=== PATIENT | male | born 1935 | race Caucasian/White ===

== ENCOUNTER 2017-05-15 15:23 | Inpatient (IN) | payer MEDICARE, BC ==
--- NOTE | 2017-05-15 16:02 | ER Document Report ---
ED Medical Screen (RME) - General Chief Complaint: Shortness Of Breath Stated Complaint: DIFFICULTY BREATHING Time Seen by Provider: 05/15/17 15:54 Notes: RME DISCLOSURE I have seen this patient as part of a Rapid Medical Evaluation and, if applicable, placed any initially appropriate orders. The patient will be seen and fully evaluated, including a full history and physical exam, by a provider ( in Main ED or Fast Track) when a room becomes available. 82-year-old male here with complaints of shortness of breath and left-sided nonradiating chest pain shortness of breath has been ongoing for the past 2 weeks but the chest pain has been ongoing for the past few days. Chest pain is worse with exertion and improved with rest. TRAVEL OUTSIDE OF THE [place] IN LAST 30 DAYS: No - Related Data Allergies/Adverse Reactions: Sulfa (Sulfonamide Antibiotics) Allergy (Verified 05/15/17 15:27) Past Medical History - Social History Chew tobacco use (# tins/day): No Frequency of alcohol use: None Drug Abuse: None - Past Medical History Cardiac Medical History: Reports: Hx Hypertension Endocrine Medical History: Reports: Hx Diabetes Mellitus Type 2 Renal/ Medical History: Denies: Hx Peritoneal Dialysis Past Surgical History: Reports: Hx Cardiac Catheterization - Immunizations Hx Diphtheria, Pertussis, Tetanus Vaccination: Yes Physical Exam - Vital signs Vitals: Temp Pulse Resp BP Pulse Ox 98.3 F 66 16 132/55 H 99 05/15/17 15:38 05/15/17 15:38 05/15/17 15:38 05/15/17 15:38 05/15/17 15:38 Course - Vital Signs Vital signs: Temp Pulse Resp BP Pulse Ox 98.3 F 66 16 132/55 H 99 05/15/17 15:38 05/15/17 15:38 05/15/17 15:38 05/15/17 15:38 05/15/17 15:38
[2017-05-15] MEDS ORDERED: ASPIRIN 81 MG TABLET, CHEWABLE PO ONE (16:06)
[2017-05-15] MEDS ORDERED: NITROGLYCERIN 0.4 MG/TAB 25 TAB/BOTTLE SL PRN (16:07)
[2017-05-15 16:20] LABS: ABSOLUTE BASOPHILS # (AUTO) 0.1 10^3/uL (0.0-0.2); ABSOLUTE EOSINOPHILS # (AUTO) 0.1 10^3/uL (0.0-0.6); ABSOLUTE LYMPHOCYTES (AUTO) 0.8 10^3/uL (0.5-4.7); ABSOLUTE MONOCYTES (AUTO) 0.7 10^3/uL (0.1-1.4); ABSOLUTE NEUT (AUTO) 5.5 10^3/uL (1.7-8.2); BASOPHILS % (AUTO) 0.8 % (0-2); EOSINOPHILS % (AUTO) 1.4 % (0-6); HEMATOCRIT 37.1 % (37.9-51.0); HEMOGLOBIN 12.5 g/dL (13.5-17.0); LYMPHOCYTES % (AUTO) 11.3 % (13-45); MEAN CORPUSCULAR HEMOGLOBIN 31.5 pg (27.0-33.4); MEAN CORPUSCULAR HGB CONC 33.6 g/dL (32.0-36.0); MEAN CORPUSCULAR VOLUME 94 fl (80-97); MONOCYTES % (AUTO) 9.6 % (3-13); PLATELET COUNT 112 10^3/uL (150-450); RED BLOOD COUNT 3.95 10^6/uL (4.35-5.55); RED CELL DISTRIBUTION WIDTH 14.2 % (11.5-14.0); SEGMENTED NEUTROPHILS % (AUTO) 76.9 % (42-78); TOTAL CELLS COUNTED % (AUTO) 100 %; WHITE BLOOD COUNT 7.1 10^3/uL (4.0-10.5)
[2017-05-15 16:43] LABS: ANION GAP 9 (5-19); BLOOD UREA NITROGEN 20 mg/dL (7-20); CALCIUM 9.8 mg/dL (8.4-10.2); CARBON DIOXIDE 29 mmol/L (22-30); CHLORIDE 102 mmol/L (98-107); GLUCOSE 194 mg/dL (75-110); POTASSIUM 4.7 mmol/L (3.6-5.0); SODIUM 139.9 mmol/L (137-145)
[2017-05-15] MEDS ORDERED: NITROGLYCERIN 2% OINTMENT 1 GM PACKET TP ONE (16:54)
[2017-05-15 16:55] LABS: TROPONIN I 0.021 ng/mL
[2017-05-15] MEDS ORDERED: FUROSEMIDE INJ/PF 40 MG/4 ML SDV IV ONE (16:55)
[2017-05-15 17:08] LABS: ALANINE AMINOTRANSFERASE 27 U/L (21-72); ALBUMIN 3.9 g/dL (3.5-5.0); ALKALINE PHOSPHATASE 58 U/L (38-126); ASPARTATE AMINO TRANSFERASE 26 U/L (17-59); BILIRUBIN,DIRECT 0.4 mg/dL (0.0-0.4); BILIRUBIN,TOTAL 0.5 mg/dL (0.2-1.3); TOTAL PROTEIN 7.2 g/dL (6.3-8.2)
--- NOTE | 2017-05-15 17:13 | RADIOLOGY REPORT (SQ) ---
EXAM DESCRIPTION: CHEST 2 VIEWS COMPLETED DATE/TIME: 05/15/2017 4:27 pm REASON FOR STUDY: SOB CP; eval edema or other etiology COMPARISON: 05/25/2015 EXAM PARAMETERS: NUMBER OF VIEWS: two views TECHNIQUE: Digital Frontal and Lateral radiographic views of the chest acquired. RADIATION DOSE: NA LIMITATIONS: none FINDINGS: LUNGS AND PLEURA: Bilateral (right greater than left) pleural effusions. Right mid lung p latelike atelectasis. No focal consolidation. No pneumothorax. MEDIASTINUM AND HILAR STRUCTURES: No masses or contour abnormalities. HEART AND VASCULAR STRUCTURES: Heart normal size. No evidence for failure. BONES: No acute findings. HARDWARE: Stable cardiac pacer. OTHER: No other significant finding. IMPRESSION: Right greater than left pleural effusions without demonstrated focal consolidation. The se findings are slightly greater than that seen on comparison imaging performed in 2016. TECHNICAL DOCUMENTATION: JOB ID: [id number] [employer]- All Rights Reserved Reading location - IP/workstation name: [email or web address]
[2017-05-15] MEDS ORDERED: ONDANSETRON HCL INJ/PF 4 MG/2 ML SDV IV PRN (17:40)
[2017-05-15] MEDS ORDERED: ZOLPIDEM TARTRATE 5 MG TABLET PO PRN (17:40)
[2017-05-15] MEDS ORDERED: ALBUTEROL SULFATE 0.083% NEB 2.5 MG/3 ML AMPUL NEB PRN (17:40)
[2017-05-15] MEDS ORDERED: ACETAMINOPHEN 325 MG TABLET PO PRN (17:40)
[2017-05-15] MEDS ORDERED: OXYCODONE-ACETAMINOPHEN 5-325 MG TABLET PO PRN (17:40)
--- NOTE | 2017-05-15 17:41 | ER Document Report ---
ED General - General Chief Complaint: Shortness Of Breath Stated Complaint: DIFFICULTY BREATHING Time Seen by Provider: 05/15/17 15:54 Notes: This is an 82-year-old male with past medical history of heart failure 4 years ago. Has a pacemaker. Ventricular paced. Over the last several days he has had increasing shortness of breath. Dyspnea on exertion. Cannot breathe when he lays flat. Followed by Dr. Aurelio Devine at [facility] has not helped. Has an occasional chest pain but no chest pain at this time. Thinks that he had a recent echocardiogram.. They have been giving him Lasix but . TRAVEL OUTSIDE OF THE [place] IN LAST 30 DAYS: No - HPI Onset/Duration: Gradual, Worse - Related Data Allergies/Adverse Reactions: Sulfa (Sulfonamide Antibiotics) Allergy (Verified 05/15/17 15:27) Past Medical History - General Information source: Patient - Social History Smoking Status: Former Smoker Chew tobacco use (# tins/day): No Frequency of alcohol use: None Drug Abuse: None Lives with: Spouse/Significant other Family History: DM Patient has suicidal ideation: No Patient has homicidal ideation: No - Past Medical History Cardiac Medical History: Reports: Hx Hypercholesterolemia, Hx Hypertension Endocrine Medical History: Reports: Hx Diabetes Mellitus Type 2 Renal/ Medical History: Denies: Hx Peritoneal Dialysis Past Surgical History: Reports: Hx Cardiac Catheterization - Immunizations Hx Diphtheria, Pertussis, Tetanus Vaccination: Yes Review of Systems - Review of Systems Constitutional: No symptoms reported EENT: No symptoms reported Cardiovascular: Chest pain, Orthopnea, Dyspnea, Edema. denies: Dizziness, Lightheaded Respiratory: Short of breath. denies: Cough, Wheezing Gastrointestinal: No symptoms reported Genitourinary: No symptoms reported Male Genitourinary: No symptoms reported Musculoskeletal: Leg swelling, Ankle swelling. denies: Joint swelling Skin: No symptoms reported Hematologic/Lymphatic: No symptoms reported Neurological/Psychological: No symptoms reported Physical Exam - Vital signs Vitals: Temp Pulse Resp BP Pulse Ox 98.3 F 66 16 132/55 H 99 05/15/17 15:38 05/15/17 15:38 05/15/17 15:38 05/15/17 15:38 05/15/17 15:38 Interpretation: Tachycardic - General General appearance: Appears well, Alert - HEENT Head: Normocephalic, Atraumatic Eyes: Normal Pupils: PERRL - Respiratory Respiratory status: No respiratory distress Chest status: Nontender Breath sounds: Normal Chest palpation: Normal - Cardiovascular Rhythm: Regular Heart sounds: Normal auscultation Murmur: No Notes: Bilateral lower extremity pitting edema. - Abdominal Inspection: Normal Distension: No distension Bowel sounds: Normal Tenderness: Nontender Organomegaly: No organomegaly - Back Back: Normal, Nontender - Extremities General upper extremity: Normal inspection, Nontender, Normal color, Normal ROM , Normal temperature General lower extremity: Normal inspection, Nontender, Edema, Normal color, Normal ROM, Normal temperature, Normal weight bearing. No: Zhao's sign - Neurological Neuro grossly intact: Yes Cognition: Normal Orientation: AAOx4 Hong Coma Scale Eye Opening: Spontaneous Hong Coma Scale Verbal: Oriented Simms Coma Scale Motor: Obeys Commands Hong Coma Scale Total: 15 Speech: Normal Motor strength normal: LUE, RUE, LLE, RLE Sensory: Normal - Psychological Associated symptoms: Normal affect, Normal mood - Skin Skin Temperature: Warm Skin Moisture: Dry Skin Color: Normal Course - Re-evaluation Re-evalutation: 05/15/17 17:40 This is a 82-year-old male in obvious congestive heart failure with pleural effusion seen on x-ray. BNP over 2500. Will need to slowly bring blood pressure down and get fluid off. Consult hospitalist who agrees to admit at this time. 40 mg of Lasix given IV. Nitro paste placed. Patient is comfortable with this plan. 05/15/17 17:41 Laboratory 05/15/17 05/15/17 05/15/17 16:09 16:09 16:09 WBC 7.1 RBC 3.95 L Hgb 12.5 L Hct 37.1 L MCV 94 MCH 31.5 MCHC 33.6 RDW 14.2 H Plt Count 112 L Seg Neutrophils % 76.9 Lymphocytes % 11.3 L Monocytes % 9.6 Eosinophils % 1.4 Basophils % 0.8 Absolute Neutrophils 5.5 Absolute Lymphocytes 0.8 Absolute Monocytes 0.7 Absolute Eosinophils 0.1 Absolute Basophils 0.1 Sodium 139.9 Potassium 4.7 Chloride 102 Carbon Dioxide 29 Anion Gap 9 BUN 20 Creatinine 0.94 Est GFR ( Amer) > 60 Est GFR (Non-Af Amer) > 60 Glucose 194 H Calcium 9.8 Total Bilirubin Direct Bilirubin Neonat Total Bilirubin Neonat Direct Bilirubin Neonat Indirect Bili AST ALT Alkaline Phosphatase Troponin I 0.021 NT-Pro-B Natriuret Pep 2510 H Total Protein Albumin 05/15/17 16:09 WBC RBC Hgb Hct MCV MCH MCHC RDW Plt Count Seg Neutrophils % Lymphocytes % Monocytes % Eosinophils % Basophils % Absolute Neutrophils Absolute Lymphocytes Absolute Monocytes Absolute Eosinophils Absolute Basophils Sodium Potassium Chloride Carbon Dioxide Anion Gap BUN Creatinine Est GFR ( Amer) Est GFR (Non-Af Amer) Glucose Calcium Total Bilirubin 0.5 Direct Bilirubin 0.4 Neonat Total Bilirubin Not Reportable Neonat Direct Bilirubin Not Reportable Neonat Indirect Bili Not Reportable AST 26 ALT 27 Alkaline Phosphatase 58 Troponin I NT-Pro-B Natriuret Pep Total Protein 7.2 Albumin 3.9 Chest X-Ray 05/15/17 15:57 IMPRESSION: Right greater than left pleural effusions without demonstrated focal consolidation. These findings are slightly greater than that seen on comparison imaging performed in 2016. - Vital Signs Vital signs: Temp Pulse Resp BP Pulse Ox 98.3 F 66 16 132/55 H 99 05/15/17 15:38 05/15/17 15:38 05/15/17 15:38 05/15/17 15:38 05/15/17 15:38 - Laboratory Result Diagrams: 05/15/17 16:09 05/15/17 16:09 Laboratory results interpreted by me: 05/15/17 05/15/17 05/15/17 16:09 16:09 16:09 RBC 3.95 L Hgb 12.5 L Hct 37.1 L RDW 14.2 H Plt Count 112 L Lymphocytes % 11.3 L Glucose 194 H NT-Pro-B Natriuret Pep 2510 H Discharge - Discharge Clinical Impression: Heart failure Qualifiers: Heart failure type: unspecified Heart failure chronicity: unspecified Qualified Code(s): I50.9 - Heart failure, unspecified Condition: Good Disposition: ADMITTED INPATIENT Admitting Provider: Hospitalist - [facility] Unit Admitted: Telemetry Referrals: ECTOR RODRIGUEZ DO [Primary Care Provider] - Follow up as needed
[2017-05-15] MEDS ORDERED: DEXTROSE 40% GEL 15 GM TUBE PO PRN ×2 (17:51)
[2017-05-15] MEDS ORDERED: DEXTROSE 50%-WATER 25 GM/50 ML DISP.SYRIN IV PRN ×2 (17:51)
[2017-05-15] MEDS ORDERED: GLUCAGON,HUMAN RECOMB 1 MG INJ IM PRN (17:51)
[2017-05-15 18:06] LABS: INTERNATIONAL RATION (INR) 1.01; PROTHROMBIN TIME 13.8 SEC (11.4-15.4)
[2017-05-15 18:07] LABS: PARTIAL THROMBOPLASTIN TIME 35.6 SEC (23.5-35.8)
[2017-05-15 18:38] LABS: TOTAL PROTEIN 7.7 g/dL (6.3-8.2)
--- NOTE | 2017-05-15 18:40 | PDOC H&P ---
History of Present Illness Admission Date/PCP: ECTOR RODRIGUEZ DO May 15, 2017 Patient complains of: Shortness of breath worse over the past week History of Present Illness: LESLIE HERNANDEZ is a 82 year old male presents to emergency room accompanied by his and complains of progressive shortness of breath which has been going on for 1 week. Patient states that he also had been getting chest pressure, headache and can hardly walk without getting short of breath. He was seen by his primary care provider when symptoms started and a chest x-ray was ordered. Posteriorly he was put on Lasix but with not much improvement. Patient states that he has a history of CABG 5 around 10 years ago. He sees Dr. Myers but had not seen recently since is difficult to get an appointment. He last had and stress test a year ago. He was told that it was normal. Patient also complains of his stomach and his legs getting swollen. Patient also admits history of heart attack, diabetes and high blood pressure. He quit smoking several years ago. During the course of evaluation in emergency room blood pressure was 160/100 and BMP was 2510. Patient was administered Lasix 40 mg IV. The hospitalist service was consulted and prompted to admit for management Past Medical History Cardiac Medical History: Reports: Congestive Heart Failure, Myocardial Infarction, Hyperlipidema, Hypertension Pulmonary Medical History: Reports: None EENT Medical History: Reports: None Neurological Medical History: Reports: None Endocrine Medical History: Reports: Diabetes Mellitus Type 2 Renal/ Medical History: Reports: None Malignancy Medical History: Reports: None GI Medical History: Reports: None Musculoskeltal Medical History: Reports: None Skin Medical History: Reports: None Psychiatric Medical History: Reports: None Traumatic Medical History: Reports: None Infectious Medical History: Reports: None Past Surgical History Past Surgical History: Reports: Cardiac Catheterization, Pacemaker Social History Information Source: Patient Lives with: Spouse/Significant other Smoking Status: Former Smoker Frequency of Alcohol Use: None Hx Recreational Drug Use: No Drugs: None - Advance Directive Resuscitation Status: Full Code Family History Family History: DM Parental Family History Reviewed: Yes Children Family History Reviewed: Yes Sibling(s) Family History Reviewed.: Yes Medication/Allergy Home Medications: Albuterol Sulfate [Proair HFA Inhalation Aerosol 8.5 gm MDI] 2 puff IH Q4HP PRN 05/15/17 Aspirin [Aspirin EC] 81 mg PO DAILY 05/15/17 Cetirizine HCl [Zyrtec 10 mg Tablet] 10 mg PO DAILY 05/15/17 Finasteride [Proscar 5 mg Tablet] 5 mg PO DAILY 05/15/17 Furosemide [Lasix 40 mg Tablet] 40 mg PO DAILY 05/15/17 Glipizide [Glucotrol 5 mg Tablet] 2.5 mg PO BID 05/15/17 Isosorbide Mononitrate [Imdur 30 mg Tablet.er] 30 mg PO DAILY 05/15/17 Levothyroxine Sodium [Synthroid 0.025 mg Tablet] 0.025 mg PO Q6AM 05/15/17 Losartan Potassium [Cozaar 25 mg Tablet] 25 mg PO DAILY 05/15/17 Metformin HCl [Glucophage 500 mg Tablet] 500 mg PO BID 05/15/17 Metoprolol Tartrate [Lopressor 50 mg Tablet] 50 mg PO Q12 05/15/17 Multivit-Minerals/FA/Lycopene [One Daily For Men Tablet] 1 tab PO DAILY Simvastatin 10 mg PO QHS 05/15/17 Allergies/Adverse Reactions: Sulfa (Sulfonamide Antibiotics) Allergy (Verified 05/15/17 15:27) Review of Systems Constitutional: PRESENT: fatigue, headache(s), weakness. ABSENT: anorexia, chills Eyes: ABSENT: visual disturbances Ears: ABSENT: hearing changes Nose, Mouth, and Throat: ABSENT: mouth pain, sore throat Cardiovascular: PRESENT: chest pain, dyspnea on exertion, edema Gastrointestinal: PRESENT: abdominal pain, nausea, vomiting Genitourinary: PRESENT: dysuria Musculoskeletal: PRESENT: back pain Integumentary: ABSENT: diaphoresis Neurological: PRESENT: weakness Endocrine: ABSENT: polyphagia, polyuria Hematologic/Lymphatic: ABSENT: easy bruising Physical Exam Vital Signs: Temp Pulse Resp BP Pulse Ox 98.3 F 66 16 147/63 H 96 05/15/17 15:38 05/15/17 15:38 05/15/17 15:38 05/15/17 17:01 05/15/17 17:01 Intake & Output 05/14/17 05/15/17 05/16/17 06:59 06:59 06:59 Weight 69 kg General appearance: PRESENT: cooperative, well-developed, well-nourished Head exam: PRESENT: atraumatic, normocephalic Eye exam: PRESENT: conjunctiva pink, EOMI, PERRLA Ear exam: PRESENT: normal external ear exam Mouth exam: PRESENT: moist Neck exam: PRESENT: full ROM. ABSENT: JVD, lymphadenopathy, tenderness, thyromegaly Respiratory exam: PRESENT: crackles, decreased breath sounds Cardiovascular exam: PRESENT: RRR. ABSENT: diastolic murmur, systolic murmur Vascular exam: PRESENT: normal capillary refill GI/Abdominal exam: PRESENT: ascites, distended, normal bowel sounds, soft. ABSENT: tenderness Extremities exam: PRESENT: full ROM, +1 edema. ABSENT: tenderness Musculoskeletal exam: PRESENT: ambulatory, full ROM Neurological exam: PRESENT: alert, awake, oriented to person, oriented to place , oriented to time, oriented to situation, CN II-XII grossly intact Psychiatric exam: PRESENT: appropriate affect, normal mood Skin exam: PRESENT: intact, normal color Results Laboratory Results: 05/15/17 16:09 05/15/17 16:09 05/15/17 05/15/17 05/15/17 16:09 16:09 16:09 WBC 7.1 RBC 3.95 L Hgb 12.5 L Hct 37.1 L MCV 94 MCH 31.5 MCHC 33.6 RDW 14.2 H Plt Count 112 L Seg Neutrophils % 76.9 Lymphocytes % 11.3 L Monocytes % 9.6 Eosinophils % 1.4 Basophils % 0.8 Absolute Neutrophils 5.5 Absolute Lymphocytes 0.8 Absolute Monocytes 0.7 Absolute Eosinophils 0.1 Absolute Basophils 0.1 Sodium 139.9 Potassium 4.7 Chloride 102 Carbon Dioxide 29 Anion Gap 9 BUN 20 Creatinine 0.94 Est GFR ( Amer) > 60 Est GFR (Non-Af Amer) > 60 Glucose 194 H Calcium 9.8 Total Bilirubin 0.5 AST 26 ALT 27 Alkaline Phosphatase 58 Total Protein 7.2 Albumin 3.9 05/15/17 16:09 Troponin I 0.021 NT-Pro-B Natriuret Pep 2510 H Impressions: Chest X-Ray 05/15/17 15:57 IMPRESSION: Right greater than left pleural effusions without demonstrated focal consolidation. These findings are slightly greater than that seen on comparison imaging performed in 2016. Assessment & Plan - Diagnosis (1) CHF (congestive heart failure) Qualifiers: Heart failure chronicity: acute on chronic Is this a current diagnosis for this admission?: Yes Plan: Will continue diuresis which had to be initiated in the emergency room. Will adjust antihypertensive medication since blood pressure elevated. Will request an echocardiogram to determine diastolic versus systolic (2) Ascites Qualifiers: Ascites type: other type Qualified Code(s): R18.8 - Other ascites Is this a current diagnosis for this admission?: Yes Plan: Likely cardiac related. To order a sonogram of the abdomen. Anticipate to order paracentesis (3) Pleural effusion Is this a current diagnosis for this admission?: Yes Plan: Likely cardiac. To order diagnostic thoracentesis (4) Diabetes Qualifiers: Diabetes mellitus type: type 2 Diabetes mellitus jail insulin use: without moth exterminator use Diabetes mellitus complication status: with unspecified complications Qualified Code(s): E11.8 - Type 2 diabetes mellitus with unspecified complications Is this a current diagnosis for this admission?: Yes Plan: To place on Humalog sliding scale with bedside glucose before meals and at bedtime. To order hemoglobin A1c (5) Hypertensive emergency Is this a current diagnosis for this admission?: Yes Plan: Patient presented with chest pain and congestive heart failure. To order Norvasc 10 mg p.o. daily, lisinopril, will increase Imdur and will change beta sunny to Toprol-XL (6) CAD (coronary artery disease) Qualifiers: Coronary Disease-Associated Artery/Lesion type: unspecified vessel or lesion type Associated angina: with unspecified angina Is this a current diagnosis for this admission?: Yes (7) Hypothyroidism Qualifiers: Hypothyroidism type: acquired Qualified Code(s): E03.9 - Hypothyroidism, unspecified Is this a current diagnosis for this admission?: Yes Plan: Continue outpatient regimen - Time Time Spent: 30 to 50 Minutes Medications reviewed and adjusted accordingly: Yes Anticipated discharge: Home with Homehealth Within: within 72 hours - Inpatient Certification Based on my medical assessment, after consideration of the patient's comorbidities, presenting symptoms, or acuity I expect that the services needed warrant INPATIENT care.: Yes I certify that my determination is in accordance with my understanding of Medicare's requirements for reasonable and necessary INPATIENT services [42 CFR 412.3e].: Yes Medical Necessity: Need Close Monitoring Due to Risk of Patient Decompensation, Need For Continuous Telemetry Monitoring - Diagnosis studies
[2017-05-15] MEDS ORDERED: AMLODIPINE BESYLATE 10 MG TABLET PO ONE (19:00)
[2017-05-15] MEDS ORDERED: ISOSORBIDE MONONITRATE 60 MG TAB.ER.24H PO ONE (19:00)
[2017-05-15] MEDS ORDERED: METOPROLOL SUCCINATE 50 MG TAB.SR.24H PO ONE (19:00)
[2017-05-15] MEDS ORDERED: LISINOPRIL 10 MG TABLET PO ONE (19:00)
[2017-05-15] MEDS: IPRATROPIUM/ALBUTEROL 0.5-2.5 MG/3 ML AMPUL NEB SCH (20:40)
--- NOTE | 2017-05-15 21:03 | EKG REPORT ---
SEVERITY:- ABNORMAL ECG - VENTRICULAR-PACED RHYTHM : Confirmed by: Alexis Todd 15-May-2017 21:02:31
[2017-05-15] MEDS ORDERED: HEPARIN SOD (PORCINE) 5,000 UNIT/ML 1 ML SYRINGE SUBCUT SCH (22:00)
[2017-05-15] MEDS: FUROSEMIDE INJ/PF 40 MG/4 ML SDV IV SCH (22:46)
[2017-05-15] MEDS: ATORVASTATIN CALCIUM 40 MG TABLET PO SCH (22:46)
--- NOTE | 2017-05-15 23:06 | RADIOLOGY REPORT (SQ) ---
EXAM DESCRIPTION: U/S ABDOMEN COMPLETE W/DOPPLER COMPLETED DATE/TIME: 05/15/2017 10:32 pm REASON FOR STUDY: ascites COMPARISON: None. TECHNIQUE: Limited Static and real time hall scale imaging performed of the 4 abdominal quadrants an d the midline. LIMITATIONS: None. FINDINGS: ASCITES: None identified. OTHER: No other significant finding. IMPRESSION: NO EVIDENCE FOR ASCITES. TECHNICAL DOCUMENTATION: JOB ID: [id number] [id number] 2010 [employer]- All Rights Reserved Reading location - IP/workstation name: [email or web address]
[2017-05-16 06:49] LABS: ABSOLUTE BASOPHILS # (AUTO) 0.1 10^3/uL (0.0-0.2); ABSOLUTE EOSINOPHILS # (AUTO) 0.1 10^3/uL (0.0-0.6); ABSOLUTE LYMPHOCYTES (AUTO) 0.7 10^3/uL (0.5-4.7); ABSOLUTE MONOCYTES (AUTO) 0.8 10^3/uL (0.1-1.4); ABSOLUTE NEUT (AUTO) 5.2 10^3/uL (1.7-8.2); BASOPHILS % (AUTO) 1.3 % (0-2); EOSINOPHILS % (AUTO) 2.1 % (0-6); HEMATOCRIT 34.1 % (37.9-51.0); HEMOGLOBIN 11.7 g/dL (13.5-17.0); LYMPHOCYTES % (AUTO) 10.1 % (13-45); MEAN CORPUSCULAR HEMOGLOBIN 31.6 pg (27.0-33.4); MEAN CORPUSCULAR HGB CONC 34.1 g/dL (32.0-36.0); MEAN CORPUSCULAR VOLUME 93 fl (80-97); MONOCYTES % (AUTO) 11.8 % (3-13); PLATELET COUNT 104 10^3/uL (150-450); RED BLOOD COUNT 3.69 10^6/uL (4.35-5.55); RED CELL DISTRIBUTION WIDTH 13.9 % (11.5-14.0); SEGMENTED NEUTROPHILS % (AUTO) 74.7 % (42-78); TOTAL CELLS COUNTED % (AUTO) 100 %
[2017-05-16 07:08] LABS: ANION GAP 11 (5-19); BLOOD UREA NITROGEN 19 mg/dL (7-20); CALCIUM 9.4 mg/dL (8.4-10.2); CARBON DIOXIDE 29 mmol/L (22-30); CHLORIDE 101 mmol/L (98-107); GLUCOSE 139 mg/dL (75-110); SODIUM 140.6 mmol/L (137-145)
[2017-05-16] MEDS: IPRATROPIUM/ALBUTEROL 0.5-2.5 MG/3 ML AMPUL NEB SCH ×3 (08:30→19:32)
[2017-05-16] MEDS ORDERED: ASPIRIN 81 MG TABLET, ENT COATED PO SCH (10:00)
[2017-05-16] MEDS ORDERED: AMLODIPINE BESYLATE 5 MG TABLET PO SCH (10:00)
[2017-05-16] MEDS: LISINOPRIL 10 MG TABLET PO SCH (10:32)
[2017-05-16] MEDS: AMLODIPINE BESYLATE 5 MG TABLET PO SCH (10:32)
[2017-05-16] MEDS: DOCUSATE SODIUM 100 MG CAPSULE PO SCH (10:32)
[2017-05-16] MEDS: ISOSORBIDE MONONITRATE 60 MG TAB.ER.24H PO SCH (10:32)
[2017-05-16] MEDS: FUROSEMIDE INJ/PF 40 MG/4 ML SDV IV SCH ×2 (10:32→22:36)
--- NOTE | 2017-05-16 11:32 | RADIOLOGY REPORT (SQ) ---
EXAM DESCRIPTION: CT ABD/PELVIS WITH IV ONLY COMPLETED DATE/TIME: 05/16/2017 10:16 am REASON FOR STUDY: abdominal pain/distention COMPARISON: None. TECHNIQUE: CT scan of the abdomen and pelvis performed using helical scanning technique with dynamic intravenous contrast injection. No oral contrast. Images reviewed with lung, soft tissue, and bone windows. Reconstructed coronal and sagittal MPR images reviewed. Delayed images for evaluation of the urinary system also acquired. All images stored on PACS. All CT scanners at this facility use dose modulation, iterative reconstruction, and/or weight based d osing when appropriate to reduce radiation dose to as low as reasonably achievable (ALARA). [facility]: Dose Right [facility]: CareDose [facility]: Dose Right [facility]: Teradose 4D [facility]: [employer] CONTRAST TYPE AND DOSE: contrast/concentration: Isovue 370.00 mg/ml; Total Contrast Delivered: 64.0 ml; Total Saline Delivered: 65.0 ml RENAL FUNCTION: GFR > 60. RADIATION DOSE: CT Rad equipment meets quality standard of care and radiation dose reduction techniq ues were employed. CTDIvol: 5.7 - 7.6 mGy. DLP: 672 mGy-cm.. LIMITATIONS: None. FINDINGS: LOWER CHEST: Cardiomegaly. Small pleural effusions, right greater than left. LIVER: Normal size. Old granulomatous disease. No dilated ducts. SPLEEN: Old granulomatous disease. PANCREAS: No masses. No significant calcifications. No adjacent inflammation or peripancreatic fluid collections. Pancreatic duct not dilated. GALLBLADDER: No identified stones by CT criteria. No inflammatory changes to suggest cholecystitis. ADRENAL GLANDS: No significant masses or asymmetry. RIGHT KIDNEY AND URETER: No solid masses. No significant calcifications. No hydronephrosis or hyd roureter. LEFT KIDNEY AND URETER: No solid masses. No significant calcifications. No hydronephrosis or hydr oureter. AORTA AND VESSELS: No aneurysm. RETROPERITONEUM: No retroperitoneal adenopathy, hemorrhage or masses. BOWEL AND PERITONEAL CAVITY: Diverticulosis descending and sigmoid colon. Trace of ascites surroundi ng the spleen. No obstruction. No free air. No adenopathy. APPENDIX: Surgically absent. PELVIS: Right bladder diverticulum. Heterogeneous enlarged prostate. ABDOMINAL WALL: No significant hernia. BONES: No acute findings. OTHER: No other significant finding. IMPRESSION: 1. Diverticulosis. 2. Trace of ascites. 3. Enlarged prostate. 4. Cardiomegaly. Small pleural effusions. TECHNICAL DOCUMENTATION: JOB ID: [id number] Quality ID # [id number]: Final reports with documentation of one or more dose reduction techniques (e.g., Au tomated exposure control, adjustment of the mA and/or kV according to patient size, use of iterative reconstruction technique) 2010 [employer]- All Rights Reserved Reading location - IP/workstation name: [email or web address]
[2017-05-16] MEDS: INSULIN LISPRO 100 UNIT/ML 3 ML VIAL SUBCUT PRN ×3 (12:22→22:36)
[2017-05-16] MEDS ORDERED: ENOXAPARIN SODIUM INJ 40 MG/0.4 ML DISP.SYRIN SUBCUT ONE (16:00)
[2017-05-16] MEDS ORDERED: TAMSULOSIN HCL 0.4 MG CAP.SR.24H PO ONE (17:46)
--- NOTE | 2017-05-16 17:47 | PDOC PROGRESS REPORT ---
Subjective Progress Note for:: 05/16/17 Subjective:: Patient relates that his shortness of breath is a bit better still unable to walk in the room without feeling short of breath. Review of systems all organ systems All organ systems evaluated and negative except as in subjective All significant laboratories and diagnostics have been reviewed Reason For Visit: CHF Physical Exam Vital Signs: Temp Pulse Resp BP Pulse Ox 97.9 F 60 16 114/46 L 95 05/16/17 03:00 05/16/17 07:00 05/16/17 03:00 05/16/17 03:00 05/16/17 03:00 Intake & Output 05/15/17 05/16/17 05/17/17 06:59 06:59 06:59 Intake Total 200 Output Total 2350 Balance -2150 Weight 59.6 kg General appearance: PRESENT: cooperative, well-developed, well-nourished Head exam: PRESENT: atraumatic, normocephalic Eye exam: PRESENT: conjunctiva pale, EOMI, PERRLA Neck exam: PRESENT: full ROM. ABSENT: JVD, lymphadenopathy, tenderness Respiratory exam: PRESENT: clear to auscultation kris, decreased breath sounds Cardiovascular exam: PRESENT: RRR. ABSENT: diastolic murmur, systolic murmur GI/Abdominal exam: PRESENT: normal bowel sounds, soft. ABSENT: tenderness Extremities exam: PRESENT: full ROM. ABSENT: pedal edema Musculoskeletal exam: PRESENT: ambulatory Neurological exam: PRESENT: alert, awake, oriented to person, oriented to place , oriented to time, oriented to situation, CN II-XII grossly intact Psychiatric exam: PRESENT: appropriate affect, normal mood Skin exam: PRESENT: intact, normal color Results Laboratory Results: 05/16/17 05:57 05/16/17 05:57 05/16/17 05/16/17 05:57 05:57 WBC 7.0 RBC 3.69 L Hgb 11.7 L Hct 34.1 L MCV 93 MCH 31.6 MCHC 34.1 RDW 13.9 Plt Count 104 L Seg Neutrophils % 74.7 Lymphocytes % 10.1 L Monocytes % 11.8 Eosinophils % 2.1 Basophils % 1.3 Absolute Neutrophils 5.2 Absolute Lymphocytes 0.7 Absolute Monocytes 0.8 Absolute Eosinophils 0.1 Absolute Basophils 0.1 Sodium 140.6 Potassium 4.0 Chloride 101 Carbon Dioxide 29 Anion Gap 11 BUN 19 Creatinine 0.92 Est GFR ( Amer) > 60 Est GFR (Non-Af Amer) > 60 Glucose 139 H Calcium 9.4 Magnesium 2.0 05/15/17 05/16/17 23:45 05:57 Troponin I 0.039 0.041 Impressions: Abdomen Ultrasound 05/15/17 00:00 IMPRESSION: NO EVIDENCE FOR ASCITES. Chest X-Ray 05/15/17 15:57 IMPRESSION: Right greater than left pleural effusions without demonstrated focal consolidation. These findings are slightly greater than that seen on comparison imaging performed in 2016. Assessment & Plan - Diagnosis (1) CHF (congestive heart failure) Qualifiers: Heart failure chronicity: acute on chronic Is this a current diagnosis for this admission?: Yes Plan: Continue current management. Echocardiogram pending (2) Ascites Qualifiers: Ascites type: other type Qualified Code(s): R18.8 - Other ascites Is this a current diagnosis for this admission?: Yes Plan: Abdominal sonogram noted. Will order a CT of the abdomen and pelvis for better definition if any ascites she is contemplating and paracentesis. Distention improved when compared to admission (3) Pleural effusion Is this a current diagnosis for this admission?: Yes Plan: Likely cardiac. 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 Hemoglobin A1c 7.1 (5) Hypertensive emergency Is this a current diagnosis for this admission?: Yes Plan: Patient presented with chest pain and congestive heart failure. Continue present management (6) CAD (coronary artery disease) Qualifiers: Coronary Disease-Associated Artery/Lesion type: unspecified vessel or lesion type Associated angina: with unspecified angina Is this a current diagnosis for this admission?: Yes Plan: Concern presentation may relate to coronary artery disease. To order nuclear stress test (7) Hypothyroidism Qualifiers: Hypothyroidism type: acquired Qualified Code(s): E03.9 - Hypothyroidism, unspecified Is this a current diagnosis for this admission?: Yes Plan: Continue outpatient regimen (8) BPH (benign prostatic hyperplasia) Qualifiers: Lower urinary tract symptom detail: unspecified Is this a current diagnosis for this admission?: Yes Plan: Will add flomax. Order PSA - Time Time Spent with patient: 15-24 minutes Medications reviewed and adjusted accordingly: Yes Anticipated discharge: Home Within: within 72 hours - Inpatient Certification Based on my medical assessment, after consideration of the patient's comorbidities, presenting symptoms, or acuity I expect that the services needed warrant INPATIENT care.: Yes I certify that my determination is in accordance with my understanding of Medicare's requirements for reasonable and necessary INPATIENT services [42 CFR 412.3e].: Yes Medical Necessity: Need Close Monitoring Due to Risk of Patient Decompensation, Need For Continuous Telemetry Monitoring
[2017-05-16] MEDS: ATORVASTATIN CALCIUM 40 MG TABLET PO SCH (22:36)
[2017-05-17] MEDS: LEVOTHYROXINE SODIUM 0.025 MG TABLET PO SCH (05:18)
[2017-05-17 05:41] LABS: ABSOLUTE BASOPHILS # (AUTO) 0.1 10^3/uL (0.0-0.2); ABSOLUTE EOSINOPHILS # (AUTO) 0.1 10^3/uL (0.0-0.6); ABSOLUTE LYMPHOCYTES (AUTO) 0.8 10^3/uL (0.5-4.7); ABSOLUTE MONOCYTES (AUTO) 0.9 10^3/uL (0.1-1.4); ABSOLUTE NEUT (AUTO) 5.8 10^3/uL (1.7-8.2); BASOPHILS % (AUTO) 1.1 % (0-2); EOSINOPHILS % (AUTO) 1.3 % (0-6); HEMATOCRIT 32.8 % (37.9-51.0); HEMOGLOBIN 11.2 g/dL (13.5-17.0); LYMPHOCYTES % (AUTO) 10.9 % (13-45); MEAN CORPUSCULAR HEMOGLOBIN 31.6 pg (27.0-33.4); MEAN CORPUSCULAR HGB CONC 34.1 g/dL (32.0-36.0); MEAN CORPUSCULAR VOLUME 93 fl (80-97); MONOCYTES % (AUTO) 11.3 % (3-13); RED BLOOD COUNT 3.54 10^6/uL (4.35-5.55); SEGMENTED NEUTROPHILS % (AUTO) 75.4 % (42-78); TOTAL CELLS COUNTED % (AUTO) 100 %; WHITE BLOOD COUNT 7.7 10^3/uL (4.0-10.5)
[2017-05-17 05:52] LABS: ANION GAP 9 (5-19); BLOOD UREA NITROGEN 28 mg/dL (7-20); CALCIUM 9.3 mg/dL (8.4-10.2); CARBON DIOXIDE 30 mmol/L (22-30); CHLORIDE 99 mmol/L (98-107); GLUCOSE 157 mg/dL (75-110); POTASSIUM 4.1 mmol/L (3.6-5.0)
[2017-05-17 06:17] LABS: PLATELET COUNT 88 10^3/uL (150-450)
[2017-05-17] MEDS: IPRATROPIUM/ALBUTEROL 0.5-2.5 MG/3 ML AMPUL NEB SCH ×3 (08:10→19:31)
[2017-05-17] MEDS: INSULIN LISPRO 100 UNIT/ML 3 ML VIAL SUBCUT PRN ×4 (08:55→21:53)
[2017-05-17] MEDS: ASPIRIN 81 MG TABLET, ENT COATED PO SCH (09:11)
[2017-05-17] MEDS: FUROSEMIDE INJ/PF 40 MG/4 ML SDV IV SCH ×2 (09:11→21:53)
[2017-05-17] MEDS: AMLODIPINE BESYLATE 5 MG TABLET PO SCH (09:11)
[2017-05-17] MEDS: DOCUSATE SODIUM 100 MG CAPSULE PO SCH (09:11)
[2017-05-17] MEDS: LISINOPRIL 10 MG TABLET PO SCH (09:11)
[2017-05-17] MEDS: ISOSORBIDE MONONITRATE 60 MG TAB.ER.24H PO SCH (09:24)
[2017-05-17] MEDS: ENOXAPARIN SODIUM INJ 40 MG/0.4 ML DISP.SYRIN SUBCUT SCH (09:24)
--- NOTE | 2017-05-17 12:57 | DRAGON STRESS TEST REPORT ---
Date of procedure 05/17/17 Date of 1935 Primary care physician: Dr. Angelika Tilley Ordering physician: Dr. Hannah Umana MD Reason for study: chest pain Imaging protocol: Rest Lexiscan nuclear MIBI SPECT study Rest images of the heart were obtained 60 minutes after injection of Cardiolite 10.78 mCi. Under the supervision of Dr. Vince Vaughan MD patient was given Lexiscan 0.4 mg IV followed by Cardiolite 31.2 mCi. Patient denied any chest pain but felt mild shortness of breath after Lexiscan injection which resolved during recovery. Patient's resting heart rate was 78 bpm and increased to a maximum of 87 bpm. Patient's resting blood pressure was 111/47 and changed to 110/45 mm Hg after Lexiscan injection. Patient's resting EKG shows sinus rhythm with right axis deviation and T-wave inversions diffusely and after Lexiscan injection patient remained in sinus rhythm with continued T-wave inversions diffusely and no EKG changes specific for ischemia were noted compared to baseline EKG. Stress images of the heart were obtained 60 minutes after Cardiolite stress dose was given. Round rest and stress images were reviewed and showed significant gut uptake. Myocardial perfusion imaging shows fairly symmetrical radiotracer uptake on both stress and rest images with no significant reversible perfusion defects noted. TID ratio was 1.02. Computer-assisted tomographic analysis shows normal LV wall motion and systolic contractility poststress. Left ventricular ejection fraction was calculated at 72%. Impression 1. No Lexiscan induced EKG changes specific for ischemia noted. 2. Myocardial perfusion imaging shows no significant reversible perfusion defects on stress images compared to rest images suggestive of any inducible ischemia. 3. Normal left ventricular ejection fraction at 72%. 4. Normal LV wall motion and systolic contractility poststress. 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
[2017-05-17] MEDS ORDERED: REGADENOSON INJ 0.4 MG/5 ML DISP.SYRIN IV ONE (13:31)
--- NOTE | 2017-05-17 14:46 | PDOC PROGRESS REPORT ---
Subjective Progress Note for:: 05/17/17 Subjective:: Patient states that his breathing is better but still having difficulty walking. When gathering more information he quit smoking 40 years ago however his mom for 20. To date he states that he has been told that there is some signs in his lungs due to the years of smoking. Discussed with patient findings of nuclear stress test which was negative. and daughter were at bedside Review of systems all organ systems All organ systems evaluated and negative except as in subjective All significant laboratories and diagnostics have been reviewed Reason For Visit: CHF Physical Exam Vital Signs: Temp Pulse Resp BP Pulse Ox 97.5 F 65 14 100/42 L 95 05/17/17 03:00 05/17/17 03:00 05/17/17 03:00 05/17/17 03:00 05/17/17 03:00 Intake & Output 05/15/17 05/16/17 05/17/17 06:59 06:59 06:59 Intake Total 200 1377 Output Total 2350 800 Balance -2150 577 Weight 59.6 kg 59.4 kg General appearance: PRESENT: no acute distress, cooperative, well-developed, well-nourished Head exam: PRESENT: atraumatic, normocephalic Eye exam: PRESENT: conjunctiva pink, EOMI, PERRLA Neck exam: PRESENT: full ROM. ABSENT: JVD, lymphadenopathy, tenderness Respiratory exam: PRESENT: clear to auscultation kris Cardiovascular exam: PRESENT: RRR. ABSENT: diastolic murmur, systolic murmur Vascular exam: PRESENT: normal capillary refill GI/Abdominal exam: PRESENT: normal bowel sounds, soft, tenderness, other - Less distended Extremities exam: PRESENT: full ROM. ABSENT: pedal edema Musculoskeletal exam: PRESENT: ambulatory Neurological exam: PRESENT: alert, awake, oriented to person, oriented to place , oriented to time, oriented to situation, CN II-XII grossly intact Psychiatric exam: PRESENT: appropriate affect, normal mood Skin exam: PRESENT: intact, normal color Results Laboratory Results: 05/17/17 05:01 05/17/17 05:01 05/16/17 05/16/17 05/17/17 05:57 05:57 05:01 WBC 7.0 7.7 RBC 3.69 L 3.54 L Hgb 11.7 L 11.2 L Hct 34.1 L 32.8 L MCV 93 93 MCH 31.6 31.6 MCHC 34.1 34.1 RDW 13.9 14.0 Plt Count 104 L 88 L Seg Neutrophils % 74.7 75.4 Lymphocytes % 10.1 L 10.9 L Monocytes % 11.8 11.3 Eosinophils % 2.1 1.3 Basophils % 1.3 1.1 Absolute Neutrophils 5.2 5.8 Absolute Lymphocytes 0.7 0.8 Absolute Monocytes 0.8 0.9 Absolute Eosinophils 0.1 0.1 Absolute Basophils 0.1 0.1 Sodium 140.6 Potassium 4.0 Chloride 101 Carbon Dioxide 29 Anion Gap 11 BUN 19 Creatinine 0.92 Est GFR ( Amer) > 60 Est GFR (Non-Af Amer) > 60 Glucose 139 H Calcium 9.4 Magnesium 2.0 Prostate Specific Ag 05/17/17 05:01 WBC RBC Hgb Hct MCV MCH MCHC RDW Plt Count Seg Neutrophils % Lymphocytes % Monocytes % Eosinophils % Basophils % Absolute Neutrophils Absolute Lymphocytes Absolute Monocytes Absolute Eosinophils Absolute Basophils Sodium 138.0 Potassium 4.1 Chloride 99 Carbon Dioxide 30 Anion Gap 9 BUN 28 H Creatinine 1.01 Est GFR ( Amer) > 60 Est GFR (Non-Af Amer) > 60 Glucose 157 H Calcium 9.3 Magnesium 2.0 Prostate Specific Ag 3.660 05/15/17 05/16/17 23:45 05:57 Troponin I 0.039 0.041 Impressions: Abdomen Ultrasound 05/15/17 00:00 IMPRESSION: NO EVIDENCE FOR ASCITES. Chest X-Ray 05/15/17 15:57 IMPRESSION: Right greater than left pleural effusions without demonstrated focal consolidation. These findings are slightly greater than that seen on comparison imaging performed in 2016. Abdomen/Pelvis CT 05/16/17 00:00 IMPRESSION: 1. Diverticulosis. 2. Trace of ascites. 3. Enlarged prostate. 4. Cardiomegaly. Small pleural effusions. Assessment & Plan - Diagnosis (1) CHF (congestive heart failure) Qualifiers: Heart failure type: diastolic Heart failure chronicity: acute on chronic Qualified Code(s): I50.33 - Acute on chronic diastolic (congestive) heart failure Is this a current diagnosis for this admission?: Yes Plan: Will decrease Lasix IV. Events. With current antihypertensive regimen. EF obtained from nuclear stress test echocardiogram is pending (2) Ascites Qualifiers: Ascites type: other type Qualified Code(s): R18.8 - Other ascites Is this a current diagnosis for this admission?: Yes Plan: Small amount no significant for paracentesis (3) Pleural effusion Is this a current diagnosis for this admission?: Yes Plan: Size of bilateral effusions not suitable for thoracentesis (4) Diabetes Qualifiers: Diabetes mellitus type: type 2 Diabetes mellitus longterm insulin use: without longterm use Diabetes mellitus complication status: with unspecified complications Qualified Code(s): E11.8 - Type 2 diabetes mellitus with unspecified complications Is this a current diagnosis for this admission?: Yes Plan: Continue current management. Hemoglobin A1c 7.1 (5) Hypertensive emergency Is this a current diagnosis for this admission?: Yes Plan: Patient presented with chest pain and congestive heart failure. Continue present management. Resolved (6) CAD (coronary artery disease) Qualifiers: Coronary Disease-Associated Artery/Lesion type: unspecified vessel or lesion type Associated angina: with unspecified angina Is this a current diagnosis for this admission?: Yes Plan: Concern presentation may relate to coronary artery disease. Nuclear test noted (7) Hypothyroidism Qualifiers: Hypothyroidism type: acquired Qualified Code(s): E03.9 - Hypothyroidism, unspecified Is this a current diagnosis for this admission?: Yes Plan: Continue outpatient regimen (8) BPH (benign prostatic hyperplasia) Qualifiers: Lower urinary tract symptom detail: unspecified Is this a current diagnosis for this admission?: Yes Plan: Continue flomax. PSA noted (9) COPD (chronic obstructive pulmonary disease) Qualifiers: Emphysema type: unspecified Is this a current diagnosis for this admission?: Yes Plan: Continue nebulizer treatments and add Advair - Time Time Spent with patient: 15-24 minutes Medications reviewed and adjusted accordingly: Yes Anticipated discharge: Home with Homehealth Within: within 48 hours - Inpatient Certification Based on my medical assessment, after consideration of the patient's comorbidities, presenting symptoms, or acuity I expect that the services needed warrant INPATIENT care.: Yes I certify that my determination is in accordance with my understanding of Medicare's requirements for reasonable and necessary INPATIENT services [42 CFR 412.3e].: Yes Medical Necessity: Need Close Monitoring Due to Risk of Patient Decompensation, Need for Nebulizer Therapy and Monitoring of Response
[2017-05-17] MEDS ORDERED: METHYLPREDNISOLONE INJ 40 MG/1 ML SDV IV ONE (15:30)
[2017-05-17] MEDS: FLUTICASONE/SALMETEROL DISKUS 250-50 MCG/DOSE IH SCH (21:53)
[2017-05-17] MEDS: METHYLPREDNISOLONE INJ 40 MG/1 ML SDV IV SCH (21:54)
[2017-05-17] MEDS: ATORVASTATIN CALCIUM 40 MG TABLET PO SCH (21:54)
[2017-05-18] MEDS: LEVOTHYROXINE SODIUM 0.025 MG TABLET PO SCH (05:25)
[2017-05-18] MEDS: METHYLPREDNISOLONE INJ 40 MG/1 ML SDV IV SCH ×2 (05:25→18:03)
[2017-05-18 06:03] LABS: ABSOLUTE LYMPHOCYTES (AUTO) 0.4 10^3/uL (0.5-4.7); ABSOLUTE MONOCYTES (AUTO) 0.1 10^3/uL (0.1-1.4); ABSOLUTE NEUT (AUTO) 6.1 10^3/uL (1.7-8.2); BASOPHILS % (AUTO) 0.1 % (0-2); HEMATOCRIT 36.2 % (37.9-51.0); HEMOGLOBIN 12.1 g/dL (13.5-17.0); LYMPHOCYTES % (AUTO) 5.9 % (13-45); MEAN CORPUSCULAR HEMOGLOBIN 31.3 pg (27.0-33.4); MEAN CORPUSCULAR HGB CONC 33.5 g/dL (32.0-36.0); MEAN CORPUSCULAR VOLUME 94 fl (80-97); RED BLOOD COUNT 3.87 10^6/uL (4.35-5.55); RED CELL DISTRIBUTION WIDTH 13.9 % (11.5-14.0); TOTAL CELLS COUNTED % (AUTO) 100 %; WHITE BLOOD COUNT 6.5 10^3/uL (4.0-10.5)
[2017-05-18 06:29] LABS: ANION GAP 13 (5-19); BLOOD UREA NITROGEN 30 mg/dL (7-20); CALCIUM 9.8 mg/dL (8.4-10.2); CARBON DIOXIDE 23 mmol/L (22-30); CHLORIDE 99 mmol/L (98-107); GLUCOSE 347 mg/dL (75-110); POTASSIUM 4.7 mmol/L (3.6-5.0); SODIUM 134.9 mmol/L (137-145)
[2017-05-18 06:39] LABS: PLATELET COUNT 99 10^3/uL (150-450)
[2017-05-18] MEDS: IPRATROPIUM/ALBUTEROL 0.5-2.5 MG/3 ML AMPUL NEB SCH ×3 (08:08→19:24)
[2017-05-18] MEDS: ENOXAPARIN SODIUM INJ 40 MG/0.4 ML DISP.SYRIN SUBCUT SCH (08:59)
[2017-05-18] MEDS: FLUTICASONE/SALMETEROL DISKUS 250-50 MCG/DOSE IH SCH ×2 (09:05→23:11)
[2017-05-18] MEDS: LISINOPRIL 10 MG TABLET PO SCH (09:06)
[2017-05-18] MEDS: INSULIN LISPRO 100 UNIT/ML 3 ML VIAL SUBCUT PRN ×4 (09:07→23:11)
[2017-05-18] MEDS: DOCUSATE SODIUM 100 MG CAPSULE PO SCH (09:07)
[2017-05-18] MEDS: FUROSEMIDE INJ/PF 40 MG/4 ML SDV IV SCH (09:07)
[2017-05-18] MEDS: ASPIRIN 81 MG TABLET, ENT COATED PO SCH (09:07)
[2017-05-18] MEDS: ISOSORBIDE MONONITRATE 60 MG TAB.ER.24H PO SCH (09:07)
[2017-05-18] MEDS: AMLODIPINE BESYLATE 5 MG TABLET PO SCH (09:07)
[2017-05-18] MEDS ORDERED: ALPRAZOLAM 0.25 MG TABLET PO PRN (10:16)
[2017-05-18] MEDS ORDERED: METOPROLOL SUCCINATE 50 MG TAB.SR.24H PO ONE (11:45)
[2017-05-18 15:24] LABS: APPEARANCE,URINE CLEAR; BILIRUBIN,URINE NEGATIVE (NEGATIVE); COLOR,URINE YELLOW; GLUCOSE, URINE >=500 mg/dL (NEGATIVE); KETONES,URINE TRACE mg/dL (NEGATIVE); LEUKOCYTE ESTERASE,URINE NEGATIVE (NEGATIVE); NITRITE,URINE NEGATIVE (NEGATIVE); PROTEIN,URINE NEGATIVE (NEGATIVE); URINE SPECIFIC GRAVITY 1.014; UROBILINOGEN,URINE NEGATIVE mg/dL (<2.0)
--- NOTE | 2017-05-18 18:56 | XCELERA REPORT ---
[address] [address] Transthoracic Echocardiogram Report Name: LESLIE HERNANDEZ Age: 82 yrs Gender: Male : 1935 Patient Status: Inpatient Patient Location: [address] [place], [place] [address] Study Date: 05/18/2017 10:32 AM Height: 66 in Weight: 152 lb BSA: 1.8 m2 Procedure: A complete two-dimensional transthoracic echocardiogram was performed (2D, M-mode, spectral and color flow Doppler). The study was technically difficult with many images being suboptimal in quality. Reason For Study: chf Ordering Physician: RIDGE ALLEN Performed By: Citlalli Russell Interpretation Summary The left ventricular ejection fraction is normal. Doppler measurements suggest pseudonormalized left ventricular relaxation, which is associated with grade II/IV or mild to moderate diastolic dysfunction There is borderline concentric left ventricular hypertrophy. The left ventricle is grossly normal size. Not all wall segments were well visualized. Wall motion cannot be accurately commented on, but no definite regional wall motion abnormalities noted. The right ventricular systolic function is normal. The left atrium is mildly dilated. The right atrium is normal in size There is a mild amount of mitral regurgitation There is no mitral valve stenosis. There is no aortic valve stenosis There is a mild amount of aortic regurgitation There is a trace to mild amount of tricuspid regurgitation There is mild to moderate pulmonary hypertension by echo Right ventricular systolic pressure is estimated to be elevated at 40- 50mmHg. The aortic root is not well visualized but is probably normal size. The inferior vena cava appeared normal and decreased > 50% with respiration (RAP 5-10 mmHg) There is no pericardial effusion. MMode/2D Measurements & Calculations RVDd: 3.3 cm LVIDd: 4.1 cm FS: 35.4 % Ao root diam: 2.5 cm IVSd: 0.95 cm LVIDs: 2.7 cm EDV(Teich): 74.5 ml LVPWd: 0.87 cm ESV(Teich): 25.8 ml Ao root area: 4.7 cm2 EF(Teich): 65.3 % LA dimension: 4.0 cm Doppler Measurements & Calculations MV E max tony: MV P1/2t max tnoy: Ao V2 max: AI max tony: 178.8 cm/sec 179.3 cm/sec 188.5 cm/sec 317.1 cm/sec MV A max tony: MV P1/2t: 57.2 msec Ao max PG: AI max P.4 cm/sec 14.2 mmHg 40.2 mmHg MV E/A: 1.4 MVA(P1/2t): 3.8 cm2 AI dec slope: MV dec slope: 917.5 cm/sec2 448.1 cm/sec2 MV dec time: AI P1/2t: 0.20 sec 207.3 msec LV V1 max PG: PA V2 max: TR max tony: 10.0 mmHg 106.6 cm/sec 310.8 cm/sec LV V1 max: PA max P.5 mmHg TR max P.9 cm/sec 38.6 mmHg Left Ventricle The left ventricle is grossly normal size. There is borderline concentric left ventricular hypertrophy. The left ventricular ejection fraction is normal. Doppler measurements suggest pseudonormalized left ventricular relaxation, which is associated with grade II/IV or mild to moderate diastolic dysfunction. Not all wall segments were well visualized. Wall motion cannot be accurately commented on, but no definite regional wall motion abnormalities noted. Right Ventricle The right ventricle is grossly normal size. There is normal right ventricular wall thickness. The right ventricular systolic function is normal. Atria The right atrium is normal in size. The left atrium is mildly dilated. Interarterial septum not well visualized and not well dopplered. Cannot comment on ASD/PFO presence. Mitral Valve The mitral valve leaflets are sclerotic, but show no functional abnormalities. There is no mitral valve stenosis. There is a mild amount of mitral regurgitation. Aortic Valve The aortic valve is grossly normal. There is no aortic valve stenosis. There is a mild amount of aortic regurgitation. Tricuspid Valve The tricuspid valve is not well visualized secondary to technical limitations. There is no tricuspid stenosis. There is a trace to mild amount of tricuspid regurgitation. There is mild to moderate pulmonary hypertension by echo. Right ventricular systolic pressure is estimated to be elevated at 40-50mmHg. Pulmonic Valve The pulmonic valve is not well visualized. Great Vessels The aortic root is not well visualized but is probably normal size. The inferior vena cava appeared normal and decreased > 50% with respiration (RAP 5-10 mmHg). Effusions There is no pericardial effusion. : RIDGE ALLEN > Alexis Todd
--- NOTE | 2017-05-18 20:20 | Progress Note ---
Provider Note Provider Note: Patient seen today. Patient has known history of coronary artery disease. He was noted to have acute onset shortness of breath. Patient is status post CABG. Currently patient much improved. Patient's medical regimen was reviewed. A full consult report will be dictated. At this point continue ongoing cardiac management.
[2017-05-18] MEDS ORDERED: GLIPIZIDE 5 MG TABLET PO ONE (22:00)
[2017-05-18] MEDS ORDERED: METFORMIN HCL 500 MG TABLET PO ONE (22:00)
[2017-05-18] MEDS: ATORVASTATIN CALCIUM 40 MG TABLET PO SCH (23:07)
--- NOTE | 2017-05-19 04:51 | PDOC PROGRESS REPORT ---
Subjective Progress Note for:: 05/18/17 Subjective:: Patient states that his breathing is better. Had another episode of chest pain while going down the manrique when having PT. It went to his jaw. He also had chest pain. At present time is better. Review of systems all organ systems All organ systems evaluated and negative except as in subjective All significant laboratories and diagnostics have been reviewed Reason For Visit: CHF Physical Exam Vital Signs: Temp Pulse Resp BP Pulse Ox 97.7 F 84 16 137/52 H 95 05/18/17 07:21 05/18/17 07:21 05/18/17 07:21 05/18/17 07:21 05/18/17 07:21 Intake & Output 05/17/17 05/18/17 05/19/17 06:59 06:59 06:59 Intake Total 1386 1476 Output Total 800 Balance 586 1476 Weight 59.4 kg 56.8 kg General appearance: PRESENT: cooperative, well-developed, well-nourished Head exam: PRESENT: atraumatic, normocephalic Eye exam: PRESENT: conjunctiva pale, EOMI, PERRLA Neck exam: PRESENT: full ROM. ABSENT: JVD, lymphadenopathy, tenderness Respiratory exam: PRESENT: clear to auscultation kris Cardiovascular exam: PRESENT: RRR. ABSENT: diastolic murmur, systolic murmur Vascular exam: PRESENT: normal capillary refill GI/Abdominal exam: PRESENT: normal bowel sounds, soft. ABSENT: tenderness Extremities exam: ABSENT: full ROM, pedal edema Musculoskeletal exam: PRESENT: ambulatory Neurological exam: PRESENT: alert, awake, oriented to person, oriented to place , oriented to time, oriented to situation, CN II-XII grossly intact Psychiatric exam: PRESENT: appropriate affect, normal mood Skin exam: PRESENT: intact, normal color Results Laboratory Results: 05/18/17 05:02 05/18/17 05:02 05/18/17 05/18/17 05:02 05:02 WBC 6.5 RBC 3.87 L Hgb 12.1 L Hct 36.2 L MCV 94 MCH 31.3 MCHC 33.5 RDW 13.9 Plt Count 99 L Seg Neutrophils % 93.0 H Lymphocytes % 5.9 L Monocytes % 1.0 L Eosinophils % 0.0 Basophils % 0.1 Absolute Neutrophils 6.1 Absolute Lymphocytes 0.4 L Absolute Monocytes 0.1 Absolute Eosinophils 0.0 Absolute Basophils 0.0 Sodium 134.9 L Potassium 4.7 Chloride 99 Carbon Dioxide 23 Anion Gap 13 BUN 30 H Creatinine 0.98 Est GFR ( Amer) > 60 Est GFR (Non-Af Amer) > 60 Glucose 347 H Calcium 9.8 Magnesium 2.0 05/15/17 05/16/17 05/17/17 23:45 05:57 07:48 Troponin I 0.039 0.041 0.039 Impressions: Abdomen Ultrasound 05/15/17 00:00 IMPRESSION: NO EVIDENCE FOR ASCITES. Chest X-Ray 05/15/17 15:57 IMPRESSION: Right greater than left pleural effusions without demonstrated focal consolidation. These findings are slightly greater than that seen on comparison imaging performed in 2016. Abdomen/Pelvis CT 05/16/17 00:00 IMPRESSION: 1. Diverticulosis. 2. Trace of ascites. 3. Enlarged prostate. 4. Cardiomegaly. Small pleural effusions. Assessment & Plan - Diagnosis (1) CHF (congestive heart failure) Qualifiers: Heart failure type: diastolic Heart failure chronicity: acute on chronic Qualified Code(s): I50.33 - Acute on chronic diastolic (congestive) heart failure Is this a current diagnosis for this admission?: Yes Plan: To discontinue IV lasix and change to bumex. Cotninue ucrrent atnihypertensive regimen. 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 Hemoglobin A1c 7.1.Number up due to use of steroids. To decrease IV steroids and follow up response (5) Hypertensive emergency Is this a current diagnosis for this admission?: Yes Plan: Patient presented with chest pain and congestive heart failure. Continue present management. Resolved (6) CAD (coronary artery disease) Qualifiers: Coronary Disease-Associated Artery/Lesion type: unspecified vessel or lesion type Associated angina: with unspecified angina Is this a current diagnosis for this admission?: Yes Plan: Concern presentation may relate to coronary artery disease. Nuclear test noted and discussed with patient and family (7) Hypothyroidism Qualifiers: Hypothyroidism type: acquired Qualified Code(s): E03.9 - Hypothyroidism, unspecified Is this a current diagnosis for this admission?: Yes Plan: Continue outpatient regimen (8) BPH (benign prostatic hyperplasia) Qualifiers: Lower urinary tract symptom detail: unspecified Is this a current diagnosis for this admission?: Yes Plan: Continue flomax. PSA noted (9) COPD (chronic obstructive pulmonary disease) Qualifiers: Emphysema type: unspecified Is this a current diagnosis for this admission?: Yes Plan: Continue nebulizer treatments and Advair. Decrease IV steroids. (10) Chest pain Qualifiers: Chest pain type: precordial pain Qualified Code(s): R07.2 - Precordial pain Is this a current diagnosis for this admission?: Yes Plan: Consult Dr Todd. Add toprol xl - Time Time Spent with patient: 15-24 minutes Medications reviewed and adjusted accordingly: Yes Anticipated discharge: Home with Homehealth Within: within 48 hours - Inpatient Certification Based on my medical assessment, after consideration of the patient's comorbidities, presenting symptoms, or acuity I expect that the services needed warrant INPATIENT care.: Yes I certify that my determination is in accordance with my understanding of Medicare's requirements for reasonable and necessary INPATIENT services [42 CFR 412.3e].: Yes Medical Necessity: Need Close Monitoring Due to Risk of Patient Decompensation, Need For Continuous Telemetry Monitoring, Need for Nebulizer Therapy and Monitoring of Response
[2017-05-19] MEDS: LEVOTHYROXINE SODIUM 0.025 MG TABLET PO SCH (06:13)
[2017-05-19] MEDS: METHYLPREDNISOLONE INJ 40 MG/1 ML SDV IV SCH ×2 (06:14→17:01)
[2017-05-19] MEDS: IPRATROPIUM/ALBUTEROL 0.5-2.5 MG/3 ML AMPUL NEB SCH ×3 (07:53→19:41)
[2017-05-19] MEDS: FLUTICASONE/SALMETEROL DISKUS 250-50 MCG/DOSE IH SCH ×2 (08:55→23:05)
[2017-05-19] MEDS: LISINOPRIL 10 MG TABLET PO SCH (08:56)
[2017-05-19] MEDS: BUMETANIDE 1 MG TABLET PO SCH (08:57)
[2017-05-19] MEDS: METFORMIN HCL 500 MG TABLET PO SCH ×2 (08:57→17:01)
[2017-05-19] MEDS: ISOSORBIDE MONONITRATE 60 MG TAB.ER.24H PO SCH (08:57)
[2017-05-19] MEDS: DOCUSATE SODIUM 100 MG CAPSULE PO SCH (08:58)
[2017-05-19] MEDS: AMLODIPINE BESYLATE 5 MG TABLET PO SCH (08:58)
[2017-05-19] MEDS: METOPROLOL SUCCINATE 50 MG TAB.SR.24H PO SCH (08:58)
[2017-05-19] MEDS: GLIPIZIDE 5 MG TABLET PO SCH ×2 (08:59→17:01)
[2017-05-19] MEDS: ENOXAPARIN SODIUM INJ 40 MG/0.4 ML DISP.SYRIN SUBCUT SCH (09:01)
[2017-05-19] MEDS: ASPIRIN 81 MG TABLET, ENT COATED PO SCH (09:01)
[2017-05-19] MEDS: INSULIN LISPRO 100 UNIT/ML 3 ML VIAL SUBCUT PRN ×3 (11:21→23:06)
--- NOTE | 2017-05-19 12:43 | PDOC CONSULTATION ---
Consultation Consult Date: 05/18/17 Attending physician:: RIDGE ALLEN Consult reason:: Shortness of breath History of Present Illness Admission Date/PCP: 05/15/17 18:23 ECTOR RODRIGUEZ DO Patient complains of: Shortness of breath History of Present Illness: LESLIE HERNANDEZ is a 82 year old male presents to emergency room accompanied by his and complains of progressive shortness of breath which has been going on for 1 week. Patient states that he also had been getting chest pressure, headache and can hardly walk without getting short of breath. He was seen by his primary care provider when symptoms started and a chest x-ray was ordered. Posteriorly he was put on Lasix but with not much improvement. Patient states that he has a history of CABG 5 around 10 years ago[address] He sees Dr. Myers but had not seen recently since is difficult to get an appointment. He last had and stress test a year ago. He was told that it was normal. Patient also complains of his stomach and his legs getting swollen. Patient also admits history of heart attack, diabetes and high blood pressure. He quit smoking several years ago. During the course of evaluation in emergency room blood pressure was 160/100 and BMP was 2510. Patient was administered Lasix 40 mg IV. The hospitalist service was consulted and prompted to admit for management Past Medical History Cardiac Medical History: Reports: Congestive Heart Failure, Myocardial Infarction, Hyperlipidema, Hypertension Pulmonary Medical History: Reports: None EENT Medical History: Reports: None Neurological Medical History: Reports: None Endocrine Medical History: Reports: Diabetes Mellitus Type 2 Renal/ Medical History: Reports: None Malignancy Medical History: Reports: None GI Medical History: Reports: None Musculoskeltal Medical History: Reports: None Skin Medical History: Reports: None Psychiatric Medical History: Reports: None Traumatic Medical History: Reports: None Infectious Medical History: Reports: None Past Surgical History Past Surgical History: Reports: Cardiac Catheterization, Pacemaker Social History Information Source: Patient Lives with: Spouse/Significant other Smoking Status: Never Smoker Frequency of Alcohol Use: None Hx Recreational Drug Use: No Drugs: None - Advance Directive Resuscitation Status: Full Code Family History Family History: DM Parental Family History Reviewed: Yes Children Family History Reviewed: Yes Sibling(s) Family History Reviewed.: Yes Medication/Allergy Home Medications: Albuterol Sulfate [Proair HFA Inhalation Aerosol 8.5 gm MDI] 2 puff IH Q4HP PRN 05/15/17 Aspirin [Aspirin EC] 81 mg PO DAILY 05/15/17 Cetirizine HCl [Zyrtec 10 mg Tablet] 10 mg PO DAILY 05/15/17 Finasteride [Proscar 5 mg Tablet] 5 mg PO DAILY 05/15/17 Furosemide [Lasix 40 mg Tablet] 40 mg PO DAILY 05/15/17 Glipizide [Glucotrol 5 mg Tablet] 2.5 mg PO BID 05/15/17 Isosorbide Mononitrate [Imdur 30 mg Tablet.er] 30 mg PO DAILY 05/15/17 Levothyroxine Sodium [Synthroid 0.025 mg Tablet] 0.025 mg PO Q6AM 05/15/17 Losartan Potassium [Cozaar 25 mg Tablet] 25 mg PO DAILY 05/15/17 Metformin HCl [Glucophage 500 mg Tablet] 500 mg PO BID 05/15/17 Metoprolol Tartrate [Lopressor 50 mg Tablet] 50 mg PO Q12 05/15/17 Multivit-Minerals/FA/Lycopene [One Daily For Men Tablet] 1 tab PO DAILY Simvastatin 10 mg PO QHS 05/15/17 Allergies/Adverse Reactions: Sulfa (Sulfonamide Antibiotics) Allergy (Verified 05/15/17 15:27) Review of Systems Review of Systems: Please see history of present illness and past medical history as wall. Constitutional: No fever or chills reported. Head : No recent chronic headaches, recent head injury. Eyes: No recent eye pain, diplopia, redness, discharge, acute visual changes. Ears: No recent chronic ear pain, acute hearing loss, ear discharge. Oral cavity: No recent ulcerations, bleeding, oral cavity discomfort. Neck: No recent acute neck pain reported. Hematologic: No recent easy bruising or bleeding or hematologic malignancy reported. Lymphatic: No recent lymphatic malignancy, chronic lymphadenopathy reported yet Cardiovascular system review: See history of present illness. Respiratory system review: No recent chronic cough, hemoptysis, blood clots in the lungs reported. Shortness of breath on exertion Gastrointestinal system review: Negative for any recent acute or chronic abdominal pain, hematemesis, melena, recent change in bowel habits. Genitourinary system review: No recent acute or chronic hematuria, flank pain, UTI etc. reported. Skin system review: Negative for any recent abnormal bruising, no rash, no pruritus reported. Neurologic: No prior history of strokes, mini strokes, seizure disorder. Psychologic: No history of major psychosis or major depression reported. Musculoskeletal: Minor aches and pains reported. No acute joint swelling reported. Endocrine: No recent polyuria, polydipsia, recent heat or cold intolerance. Physical Exam Vital Signs: Temp Pulse Resp BP Pulse Ox 97.7 F 74 18 119/44 L 98 05/18/17 15:17 05/18/17 19:24 05/18/17 19:24 05/18/17 15:17 05/18/17 19:24 Intake & Output 05/17/17 05/18/17 05/19/17 06:59 06:59 06:59 Intake Total 1386 1476 336 Output Total 800 200 Balance 586 1476 136 Weight 59.4 kg 56.8 kg Exam: GENERAL: well-nourished and in no acute distress. Alert and oriented x3 HEAD: Atraumatic, normocephalic. EYES: Pupils equal round and reactive to light, extraocular movements intact, sclera anicteric, conjunctiva are normal. ENT: TMs normal, nares patent, oropharynx clear without exudates. Moist mucous membranes. No oral ulcerations or bleeding gums noted NECK: supple without lymphadenopathy. Trachea is central. No cervical or axillary lymphadenopathy noted. Carotids are 2+, JVD WNL LUNGS: Respiration seems nonlabored, no significant accessory muscle action noted. Mild bibasilar fine crackles are noted. No wheezes rales or rhonchi noted. No significant dullness noted on percussion. CHEST: Palpation of the chest wall shows no significant chest wall tenderness. No other significant abnormalities noted. Pacemaker noted right-sided chest. HEART: [place] [facility] DIRECTOR, No PSH, 1/6 SHIRLEY aortic area, 1/6 cannon systolic murmur mitral area, no rubs, no gallops. ABDOMEN: Soft, no significant tenderness appreciated, normoactive bowel sounds. No guarding, no rebound. No rigidity noted . No masses appreciated. EXTREMITIES: Pedal pulses are 1-2+, no calf tenderness noted. No clubbing or cyanosis. negative pedal edema noted NEUROLOGICAL: Focused neurological exam showed no significant neurologic deficit. Normal speech, no focal weakness appreciated. PSYCH: Normal mood, normal affect. Judgment and insight within normal limits. SKIN: No significant ecchymosis, skin is noted to be warm. MUSCULOSKELETAL EXAM: No significant acute joint swelling noted. Results Laboratory Results: 05/18/17 05:02 05/18/17 05:02 05/18/17 05/18/17 05/18/17 05:02 05:02 15:03 WBC 6.5 RBC 3.87 L Hgb 12.1 L Hct 36.2 L MCV 94 MCH 31.3 MCHC 33.5 RDW 13.9 Plt Count 99 L Seg Neutrophils % 93.0 H Lymphocytes % 5.9 L Monocytes % 1.0 L Eosinophils % 0.0 Basophils % 0.1 Absolute Neutrophils 6.1 Absolute Lymphocytes 0.4 L Absolute Monocytes 0.1 Absolute Eosinophils 0.0 Absolute Basophils 0.0 Sodium 134.9 L Potassium 4.7 Chloride 99 Carbon Dioxide 23 Anion Gap 13 BUN 30 H Creatinine 0.98 Est GFR ( Amer) > 60 Est GFR (Non-Af Amer) > 60 Glucose 347 H Calcium 9.8 Magnesium 2.0 Urine Color Urine Appearance Urine pH Ur Specific [place] Urine Protein Urine Glucose (UA) Urine Ketones Urine Blood Urine Nitrite Ur Leukocyte Esterase Urine WBC (Auto) Urine RBC (Auto) Stool Occult Blood NEGATIVE 05/18/17 15:03 WBC RBC Hgb Hct MCV MCH MCHC RDW Plt Count Seg Neutrophils % Lymphocytes % Monocytes % Eosinophils % Basophils % Absolute Neutrophils Absolute Lymphocytes Absolute Monocytes Absolute Eosinophils Absolute Basophils Sodium Potassium Chloride Carbon Dioxide Anion Gap BUN Creatinine Est GFR ( Amer) Est GFR (Non-Af Amer) Glucose Calcium Magnesium Urine Color YELLOW Urine Appearance CLEAR Urine pH 5.0 Ur Specific [place] 1.014 Urine Protein NEGATIVE Urine Glucose (UA) >=500 H Urine Ketones TRACE H Urine Blood NEGATIVE Urine Nitrite NEGATIVE Ur Leukocyte Esterase NEGATIVE Urine WBC (Auto) 0 Urine RBC (Auto) 0 Stool Occult Blood 05/15/17 05/16/17 05/17/17 23:45 05:57 07:48 Troponin I 0.039 0.041 0.039 EKG Comments: Twelve-lead EKG shows ventricular paced rhythm. Impressions: Abdomen Ultrasound 05/15/17 00:00 IMPRESSION: NO EVIDENCE FOR ASCITES. Chest X-Ray 05/15/17 15:57 IMPRESSION: Right greater than left pleural effusions without demonstrated focal consolidation. These findings are slightly greater than that seen on comparison imaging performed in 2016. Abdomen/Pelvis CT 05/16/17 00:00 IMPRESSION: 1. Diverticulosis. 2. Trace of ascites. 3. Enlarged prostate. 4. Cardiomegaly. Small pleural effusions. Assessment & Plan - Diagnosis (1) CAD (coronary artery disease) Qualifiers: Coronary Disease-Associated Artery/Lesion type: unspecified vessel or lesion type Associated angina: with unspecified angina Is this a current diagnosis for this admission?: Yes (2) CHF (congestive heart failure) Qualifiers: Heart failure type: diastolic Heart failure chronicity: acute on chronic Qualified Code(s): I50.33 - Acute on chronic diastolic (congestive) heart failure Is this a current diagnosis for this admission?: Yes (3) COPD (chronic obstructive pulmonary disease) Qualifiers: Emphysema type: unspecified Is this a current diagnosis for this admission?: Yes (4) Chest pain Qualifiers: Chest pain type: precordial pain Qualified Code(s): R07.2 - Precordial pain Is this a current diagnosis for this admission?: Yes (5) Diabetes Qualifiers: Diabetes mellitus type: type 2 Diabetes mellitus mcfp insulin use: without lining closer use Diabetes mellitus complication status: with unspecified complications Qualified Code(s): E11.8 - Type 2 diabetes mellitus with unspecified complications Is this a current diagnosis for this admission?: Yes (6) Cardiac pacemaker in situ Is this a current diagnosis for this admission?: Yes - Notes Notes: Coronary artery disease: Symptomatically stable. Nuclear stress test was negative for any pharmacologic stress-induced ischemia. Will try optimize medical management while patient in the hospital. Congestive heart failure: Based on 2D echocardiogram is related to diastolic dysfunction: Possibly acute on chronic related to volume overload. COPD: Currently is stable. Chest pain: [place] to be noncardiac based on nuclear stress test. Diabetes: Recommend good control of diabetes but avoid any hypo-or hyperglycemia. Pacemaker in situ: Patient has a dual-chamber pacemaker based on x-ray review. Based on telemetry strip review and twelve-lead EKG seems to be functioning normally. - Time Time Spent: 30 to 50 Minutes - CODE STATUS was discussed, patient remains full code. Surrogate decision-maker patient's . Multiple medical problems were addressed. More than 50% of the time spent coordinating care, discussing management plans with involved caregivers. Management plans discussed with involved personnels. Medical decision making was of moderate to high complexity , patient's has multiple comorbidities. Medications reviewed and adjusted accordingly: Yes
--- NOTE | 2017-05-19 18:17 | PDOC PROGRESS REPORT ---
Subjective Progress Note for:: 05/19/17 Subjective:: Patient states that his breathing is better. Patient states that has not experienced anymore chest pain Review of systems all organ systems All organ systems evaluated and negative except as in subjective All significant laboratories and diagnostics have been reviewed Reason For Visit: CHF Physical Exam Vital Signs: Temp Pulse Resp BP Pulse Ox 97.5 F 62 16 109/42 L 99 05/19/17 03:29 05/19/17 03:29 05/19/17 03:29 05/19/17 03:29 05/19/17 03:29 Intake & Output 05/17/17 05/18/17 05/19/17 06:59 06:59 06:59 Intake Total 1386 1476 596 Output Total 800 200 Balance 586 1476 396 Weight 59.4 kg 56.8 kg General appearance: PRESENT: cooperative, well-developed, well-nourished Head exam: PRESENT: atraumatic, normocephalic Eye exam: PRESENT: conjunctiva pink, EOMI, PERRLA Mouth exam: PRESENT: moist, neck supple Neck exam: PRESENT: full ROM. ABSENT: JVD, lymphadenopathy, tenderness Respiratory exam: PRESENT: clear to auscultation kris Cardiovascular exam: PRESENT: RRR. ABSENT: diastolic murmur, systolic murmur Vascular exam: PRESENT: normal capillary refill, pallor GI/Abdominal exam: PRESENT: normal bowel sounds, soft. ABSENT: tenderness Extremities exam: PRESENT: full ROM. ABSENT: pedal edema Musculoskeletal exam: PRESENT: ambulatory Neurological exam: PRESENT: alert, awake, oriented to person, oriented to place , oriented to time, oriented to situation, CN II-XII grossly intact Psychiatric exam: PRESENT: appropriate affect, normal mood Skin exam: PRESENT: intact, normal color Results Laboratory Results: 05/18/17 05:02 05/18/17 05:02 05/18/17 05/18/17 05/18/17 05:02 05:02 15:03 WBC 6.5 RBC 3.87 L Hgb 12.1 L Hct 36.2 L MCV 94 MCH 31.3 MCHC 33.5 RDW 13.9 Plt Count 99 L Seg Neutrophils % 93.0 H Lymphocytes % 5.9 L Monocytes % 1.0 L Eosinophils % 0.0 Basophils % 0.1 Absolute Neutrophils 6.1 Absolute Lymphocytes 0.4 L Absolute Monocytes 0.1 Absolute Eosinophils 0.0 Absolute Basophils 0.0 Sodium 134.9 L Potassium 4.7 Chloride 99 Carbon Dioxide 23 Anion Gap 13 BUN 30 H Creatinine 0.98 Est GFR ( Amer) > 60 Est GFR (Non-Af Amer) > 60 Glucose 347 H Calcium 9.8 Magnesium 2.0 Urine Color Urine Appearance Urine pH Ur Specific [place] Urine Protein Urine Glucose (UA) Urine Ketones Urine Blood Urine Nitrite Ur Leukocyte Esterase Urine WBC (Auto) Urine RBC (Auto) Stool Occult Blood NEGATIVE 05/18/17 15:03 WBC RBC Hgb Hct MCV MCH MCHC RDW Plt Count Seg Neutrophils % Lymphocytes % Monocytes % Eosinophils % Basophils % Absolute Neutrophils Absolute Lymphocytes Absolute Monocytes Absolute Eosinophils Absolute Basophils Sodium Potassium Chloride Carbon Dioxide Anion Gap BUN Creatinine Est GFR ( Amer) Est GFR (Non-Af Amer) Glucose Calcium Magnesium Urine Color YELLOW Urine Appearance CLEAR Urine pH 5.0 Ur Specific [place] 1.014 Urine Protein NEGATIVE Urine Glucose (UA) >=500 H Urine Ketones TRACE H Urine Blood NEGATIVE Urine Nitrite NEGATIVE Ur Leukocyte Esterase NEGATIVE Urine WBC (Auto) 0 Urine RBC (Auto) 0 Stool Occult Blood 05/15/17 05/16/17 05/17/17 23:45 05:57 07:48 Troponin I 0.039 0.041 0.039 Impressions: Abdomen Ultrasound 05/15/17 00:00 IMPRESSION: NO EVIDENCE FOR ASCITES. Chest X-Ray 05/15/17 15:57 IMPRESSION: Right greater than left pleural effusions without demonstrated focal consolidation. These findings are slightly greater than that seen on comparison imaging performed in 2016. Abdomen/Pelvis CT 05/16/17 00:00 IMPRESSION: 1. Diverticulosis. 2. Trace of ascites. 3. Enlarged prostate. 4. Cardiomegaly. Small pleural effusions. Assessment & Plan - Diagnosis (1) CHF (congestive heart failure) Qualifiers: Heart failure type: diastolic Heart failure chronicity: acute on chronic Qualified Code(s): I50.33 - Acute on chronic diastolic (congestive) heart failure Is this a current diagnosis for this admission?: Yes Plan: Continue current regimen. Continue stable anticipate discharge in a.m. (2) Ascites Qualifiers: Ascites type: other type Qualified Code(s): R18.8 - Other ascites Is this a current diagnosis for this admission?: Yes Plan: Small amount no significant for paracentesis. Clinically improved (3) Pleural effusion Is this a current diagnosis for this admission?: Yes Plan: Size of bilateral effusions not suitable for thoracentesis (4) Diabetes Qualifiers: Diabetes mellitus type: type 2 Diabetes mellitus intermediate frame tender insulin use: without mcc use Diabetes mellitus complication status: with unspecified complications Qualified Code(s): E11.8 - Type 2 diabetes mellitus with unspecified complications Is this a current diagnosis for this admission?: Yes Plan: Continue current management. Hemoglobin A1c 7.1. (5) Hypertensive emergency Is this a current diagnosis for this admission?: Yes Plan: Patient presented with chest pain and congestive heart failure. Continue present management. Resolved (6) CAD (coronary artery disease) Qualifiers: Coronary Disease-Associated Artery/Lesion type: unspecified vessel or lesion type Associated angina: with unspecified angina Is this a current diagnosis for this admission?: Yes Plan: Concern presentation may relate to coronary artery disease. Nuclear test noted and discussed with patient and family. Will add Toprol-XL as patient may have a vasospasm (7) Hypothyroidism Qualifiers: Hypothyroidism type: acquired Qualified Code(s): E03.9 - Hypothyroidism, unspecified Is this a current diagnosis for this admission?: Yes Plan: Continue outpatient regimen (8) BPH (benign prostatic hyperplasia) Qualifiers: Lower urinary tract symptom detail: unspecified Is this a current diagnosis for this admission?: Yes Plan: Continue flomax. PSA noted (9) COPD (chronic obstructive pulmonary disease) Qualifiers: Emphysema type: unspecified Is this a current diagnosis for this admission?: Yes Plan: Continue nebulizer treatments and Advair. Discontinue steroids (10) Chest pain Qualifiers: Chest pain type: precordial pain Qualified Code(s): R07.2 - Precordial pain Is this a current diagnosis for this admission?: Yes Plan: Discussed with Dr. Todd and agreed with Toprol-XL (11) Pulmonary hypertension Is this a current diagnosis for this admission?: Yes Plan: Likely due to diastolic dysfunction. Contributing to patient presentation - Time Time Spent with patient: 15-24 minutes Medications reviewed and adjusted accordingly: Yes Anticipated discharge: Home Within: within 24 hours - Inpatient Certification Based on my medical assessment, after consideration of the patient's comorbidities, presenting symptoms, or acuity I expect that the services needed warrant INPATIENT care.: Yes I certify that my determination is in accordance with my understanding of Medicare's requirements for reasonable and necessary INPATIENT services [42 CFR 412.3e].: Yes Medical Necessity: Need Close Monitoring Due to Risk of Patient Decompensation, Need For Continuous Telemetry Monitoring
[2017-05-19] MEDS: ATORVASTATIN CALCIUM 40 MG TABLET PO SCH (23:06)
[2017-05-20 04:50] LABS: HEMATOCRIT 35.1 % (37.9-51.0); HEMOGLOBIN 11.9 g/dL (13.5-17.0); MEAN CORPUSCULAR HEMOGLOBIN 31.4 pg (27.0-33.4); MEAN CORPUSCULAR HGB CONC 33.9 g/dL (32.0-36.0); MEAN CORPUSCULAR VOLUME 93 fl (80-97); PLATELET COUNT 173 10^3/uL (150-450); RED BLOOD COUNT 3.79 10^6/uL (4.35-5.55); RED CELL DISTRIBUTION WIDTH 13.7 % (11.5-14.0)
[2017-05-20] MEDS: LEVOTHYROXINE SODIUM 0.025 MG TABLET PO SCH (05:35)
[2017-05-20] MEDS: METHYLPREDNISOLONE INJ 40 MG/1 ML SDV IV SCH (05:35)
[2017-05-20] MEDS: METFORMIN HCL 500 MG TABLET PO SCH (08:06)
[2017-05-20] MEDS: GLIPIZIDE 5 MG TABLET PO SCH (08:06)
[2017-05-20] MEDS: IPRATROPIUM/ALBUTEROL 0.5-2.5 MG/3 ML AMPUL NEB SCH (08:13)
[2017-05-20 10:58] VITALS: BP 127/50
[2017-05-20] MEDS: ASPIRIN 81 MG TABLET, ENT COATED PO SCH (11:26)
[2017-05-20] MEDS: METOPROLOL SUCCINATE 50 MG TAB.SR.24H PO SCH (11:26)
[2017-05-20] MEDS: FLUTICASONE/SALMETEROL DISKUS 250-50 MCG/DOSE IH SCH (11:26)
[2017-05-20] MEDS: BUMETANIDE 1 MG TABLET PO SCH (11:27)
[2017-05-20] MEDS: LISINOPRIL 10 MG TABLET PO SCH (11:27)
[2017-05-20] MEDS: DOCUSATE SODIUM 100 MG CAPSULE PO SCH (11:27)
[2017-05-20] MEDS: AMLODIPINE BESYLATE 5 MG TABLET PO SCH (11:28)
[2017-05-20] MEDS: ENOXAPARIN SODIUM INJ 40 MG/0.4 ML DISP.SYRIN SUBCUT SCH (11:28)
[2017-05-20] MEDS: ISOSORBIDE MONONITRATE 60 MG TAB.ER.24H PO SCH (11:28)
--- NOTE | 2017-05-21 06:29 | PDOC DISCHARGE SUMMARY ---
General - Admit/Disc Date/PCP Admission Date/Primary Care Provider: 05/15/17 18:23 ECTOR RODRIGUEZ, Discharge Date: 05/20/17 - Discharge Diagnosis (1) CHF (congestive heart failure) Is this a current diagnosis for this admission?: Yes (2) Ascites Is this a current diagnosis for this admission?: Yes (3) Pleural effusion Is this a current diagnosis for this admission?: Yes (4) Diabetes Is this a current diagnosis for this admission?: Yes (5) Hypertensive emergency Is this a current diagnosis for this admission?: Yes (6) CAD (coronary artery disease) Is this a current diagnosis for this admission?: Yes (7) Hypothyroidism Is this a current diagnosis for this admission?: Yes (8) BPH (benign prostatic hyperplasia) Is this a current diagnosis for this admission?: Yes (9) COPD (chronic obstructive pulmonary disease) Is this a current diagnosis for this admission?: Yes (10) Chest pain Is this a current diagnosis for this admission?: Yes (11) Pulmonary hypertension Is this a current diagnosis for this admission?: Yes - Additional Information Resuscitation Status: Full Code Discharge Diet: Cardiac, Diabetic Discharge Activity: Activity As Tolerated, Balance Activity w/Rest, Weigh Daily Prescriptions: Amlodipine Besylate [Norvasc 5 mg Tablet] 10 mg PO DAILY #60 tablet Bumetanide [Bumex 1 mg Tablet] 1 mg PO DAILY #30 tablet Fluticasone/Salmeterol [Advair 250-50 Diskus 14 Dose/Diskus] 1 inh IH Q12 #60 inhaler Isosorbide Mononitrate [Imdur 60 mg Tablet.er] 60 mg PO DAILY #30 tab.er.24h Lisinopril [Prinivil 10 mg Tablet] 20 mg PO DAILY #60 tablet Metoprolol Succinate [Toprol Xl 50 mg Tab.sr] 50 mg PO DAILY #30 tab.sr.24h Home Medications: Albuterol Sulfate [Proair HFA Inhalation Aerosol 8.5 gm MDI] 2 puff IH Q4HP PRN 05/15/17 Aspirin [Aspirin EC] 81 mg PO DAILY 05/15/17 Cetirizine HCl [Zyrtec 10 mg Tablet] 10 mg PO DAILY 05/15/17 Finasteride [Proscar 5 mg Tablet] 5 mg PO DAILY 05/15/17 Glipizide [Glucotrol 5 mg Tablet] 2.5 mg PO BID 05/15/17 Levothyroxine Sodium [Synthroid 0.025 mg Tablet] 0.025 mg PO Q6AM 05/15/17 Metformin HCl [Glucophage 500 mg Tablet] 500 mg PO BID 05/15/17 Multivit-Minerals/FA/Lycopene [One Daily For Men Tablet] 1 tab PO DAILY Simvastatin 10 mg PO QHS 05/15/17 Amlodipine Besylate [Norvasc 5 mg Tablet] 10 mg PO DAILY #60 tablet 05/20/17 Bumetanide [Bumex 1 mg Tablet] 1 mg PO DAILY #30 tablet 05/20/17 Fluticasone/Salmeterol [Advair 250-50 Diskus 14 Dose/Diskus] 1 inh IH Q12 #60 inhaler 05/20/17 Isosorbide Mononitrate [Imdur 60 mg Tablet.er] 60 mg PO DAILY #30 tab.er.24h 12/27 Lisinopril [Prinivil 10 mg Tablet] 20 mg PO DAILY #60 tablet 05/20/17 Metoprolol Succinate [Toprol Xl 50 mg Tab.sr] 50 mg PO DAILY #30 tab.sr.24h 12/27 History of Present Illness History of Present Illness: LESLIE HERNANDEZ is a 82 year old male who presented to emergency room accompanied by his and complained of progressive shortness of breath which has been going on for 1 week. Patient stated that he also had been getting chest pressure, headache and can hardly walk without getting short of breath. He was seen by his primary care provider when symptoms started and a chest x- ray was ordered. Posteriorly he was put on Lasix but with not much improvement. Patient stated that he has a history of CABG 5 around 10 years ago[address] He sees Dr. Myers but had not seen recently since is difficult to get an appointment. He last had and stress test a year ago. He was told that it was normal. Patient also complained of his stomach and his legs getting swollen. Patient also admits history of heart attack, diabetes and high blood pressure. He quit smoking several years ago. During the course of evaluation in emergency room blood pressure was 160/100 and BMP was 2510. Patient was administered Lasix 40 mg IV. The hospitalist service was consulted and prompted to admit for management Hospital Course Hospital Course: Patient was admitted to telemetry unit. There were no cardiac dysrhythmias. Troponins were negative. Further evaluation of chest pain he underwent nuclear stress test which did not show signs of ischemia. Ejection fraction per nuclear stress test was 72%. He experienced another bout of chest pain and we consulted Dr. Todd. Toprol was added to his regimen. Patient was aggressively diuresis and he lost 9 kg while hospitalized. Echocardiogram obtained showed diastolic dysfunction as well as pulmonary hypertension. We opted to place patient on Bumex as is more efficient removing fluid from his body. We will optimize antihypertensive medication as is the primary goal when treating diastolic dysfunction. He was discharged on Norvasc, lisinopril, Toprol-XL and we increased Imdur dose. On initial presentation there were bilateral pleural effusions and contemplated a thoracentesis. However interventional radiology evaluated fluid buildup and stated that it was not enough for a thoracentesis. Also abdominal distention was concerning about ascites. Further imaging showed mild ascites which she was not amenable for paracentesis. As he does have a remote history of smoking and possibility of COPD we placed patient on nebulizer treatments and has been discharged with long -acting inhalers. Blood sugar levels was transiently out control because of the use of IV steroids. Patient had been educated about fluid intake by the author. He has been advised as to limit fluid intake to 1500 mL's per day. Patient also has been encouraged as to follow-up with his primary care provider and an appointment has been made for him to follow-up with Dr. Todd. Recommend primary care provider to work on end of life issues. Since patient had achieved maximum benefit of hospitalization stay prompted to discharge under stable condition Physical Exam Vital Signs: Temp Pulse Resp BP Pulse Ox 97.6 F 61 16 115/53 L 96 05/20/17 07:50 05/20/17 08:13 05/20/17 08:13 05/20/17 07:50 05/20/17 08:13 Intake & Output 05/19/17 05/20/17 05/21/17 06:59 06:59 06:59 Intake Total 850 1304 Output Total 200 Balance 650 1304 Weight 59 kg 60.5 kg General appearance: PRESENT: no acute distress, cooperative, well-developed, well-nourished Head exam: PRESENT: atraumatic, normocephalic Eye exam: PRESENT: conjunctiva pink, EOMI, PERRLA Ear exam: PRESENT: normal external ear exam Neck exam: PRESENT: full ROM. ABSENT: JVD, lymphadenopathy, tenderness Respiratory exam: PRESENT: clear to auscultation kris Cardiovascular exam: PRESENT: RRR. ABSENT: diastolic murmur, systolic murmur Vascular exam: PRESENT: normal capillary refill GI/Abdominal exam: PRESENT: distended, normal bowel sounds, soft. ABSENT: tenderness Extremities exam: PRESENT: full ROM. ABSENT: tenderness Musculoskeletal exam: PRESENT: ambulatory Neurological exam: PRESENT: alert, awake, oriented to person, oriented to place , oriented to time, oriented to situation, CN II-XII grossly intact Psychiatric exam: PRESENT: appropriate affect, normal mood Skin exam: PRESENT: intact, normal color Results Laboratory Results: 05/20/17 04:12 05/18/17 05:02 05/20/17 04:12 WBC 15.0 H D RBC 3.79 L Hgb 11.9 L Hct 35.1 L MCV 93 MCH 31.4 MCHC 33.9 RDW 13.7 Plt Count 173 05/15/17 05/16/17 05/17/17 23:45 05:57 07:48 Troponin I 0.039 0.041 0.039 Impressions: Abdomen Ultrasound 05/15/17 00:00 IMPRESSION: NO EVIDENCE FOR ASCITES. Chest X-Ray 05/15/17 15:57 IMPRESSION: Right greater than left pleural effusions without demonstrated focal consolidation. These findings are slightly greater than that seen on comparison imaging performed in 2016. Abdomen/Pelvis CT 05/16/17 00:00 IMPRESSION: 1. Diverticulosis. 2. Trace of ascites. 3. Enlarged prostate. 4. Cardiomegaly. Small pleural effusions. Qualifiers - * PATEINT BEING DISCHARGED WITH ANY OF THE FOLLOWING DIAGNOSIS?: Heart Failure HF Pt being discharged on ACEI for LVEF less than 40%?: Yes HF Pt being discharged on ARBS for LVEF less than 40%?: No Reason(s) for not prescribing ARBS:: Procedure not indicated HF Pt with Afib discharged with Warfarin?: No Reason(s) for not prescribing Warfarin:: Procedure not indicated HF Pt discharged on evidence-based Beta Bal:: Yes Plan Discharge Plan: Patient to be discharged home under stable condition. Patient has been advised to follow with PCP. Appointment will be made for him to follow with Dr. Todd Time Spent: Greater than 30 Minutes
--- NOTE | 2017-05-21 11:01 | PDOC PROGRESS REPORT ---
Subjective Progress Note for:: 05/19/17 Subjective:: Patient seems to be doing better with gradual improvement. Pt is denying any chest arm or neck discomfort. Patient denying any PND, orthopnea. Patient denied any sustained palpitations, dizziness, syncope, near syncope. Patient denying any fever chills. Patient denying any other significant discomfort. Patient is ventricular paced rhythm Review of systems: Rest review of systems negative. Medications: Medications have been reviewed. Reason For Visit: CHF Physical Exam Vital Signs: Temp Pulse Resp BP Pulse Ox 97.7 F 71 16 117/53 L 99 05/19/17 11:23 05/19/17 11:23 05/19/17 11:23 05/19/17 11:23 05/19/17 11:23 Intake & Output 05/18/17 05/19/17 05/20/17 06:59 06:59 06:59 Intake Total 1476 850 Output Total 200 Balance 1476 650 Weight 56.8 kg 59 kg Exam: GENERAL: well-nourished and in no acute distress. Alert and oriented x3 HEAD: Atraumatic, normocephalic. EYES: Pupils equal round and reactive to light, extraocular movements intact, sclera anicteric, conjunctiva are normal. ENT: TMs normal, nares patent, oropharynx clear without exudates. Moist mucous membranes. No oral ulcerations or bleeding gums noted NECK: supple without lymphadenopathy. Trachea is central. No cervical or axillary lymphadenopathy noted. Carotids are 2+, JVD WNL LUNGS: Respiration seems nonlabored, no significant accessory muscle action noted. Few bibasilar fine crackles noted. No wheezes rales or rhonchi noted. No significant dullness noted on percussion. CHEST: Palpation of the chest wall shows no significant chest wall tenderness. No other significant abnormalities noted. Pacemaker noted. HEART: [place] FREEZER UNLOADER, No PSH, 1/6 SHIRLEY aortic area, 1/6 cannon systolic murmur mitral area, no rubs, no gallops. ABDOMEN: Soft, no significant tenderness appreciated, normoactive bowel sounds. No guarding, no rebound. No rigidity noted . No masses appreciated. EXTREMITIES: Pedal pulses are 1-2+, no calf tenderness noted. No clubbing or cyanosis. negative pedal edema noted NEUROLOGICAL: Focused neurological exam showed no significant neurologic deficit. Normal speech, no focal weakness appreciated. PSYCH: Normal mood, normal affect. Judgment and insight within normal limits. SKIN: No significant ecchymosis, skin is noted to be warm. MUSCULOSKELETAL EXAM: No significant acute joint swelling noted. Results Laboratory Results: 05/18/17 05:02 05/18/17 05:02 05/18/17 05/18/17 15:03 15:03 Urine Color YELLOW Urine Appearance CLEAR Urine pH 5.0 Ur Specific [place] 1.014 Urine Protein NEGATIVE Urine Glucose (UA) >=500 H Urine Ketones TRACE H Urine Blood NEGATIVE Urine Nitrite NEGATIVE Ur Leukocyte Esterase NEGATIVE Urine WBC (Auto) 0 Urine RBC (Auto) 0 Stool Occult Blood NEGATIVE 05/15/17 05/16/17 05/17/17 23:45 05:57 07:48 Troponin I 0.039 0.041 0.039 Impressions: Abdomen Ultrasound 05/15/17 00:00 IMPRESSION: NO EVIDENCE FOR ASCITES. Chest X-Ray 05/15/17 15:57 IMPRESSION: Right greater than left pleural effusions without demonstrated focal consolidation. These findings are slightly greater than that seen on comparison imaging performed in 2016. Abdomen/Pelvis CT 05/16/17 00:00 IMPRESSION: 1. Diverticulosis. 2. Trace of ascites. 3. Enlarged prostate. 4. Cardiomegaly. Small pleural effusions. Assessment & Plan - Diagnosis (1) CAD (coronary artery disease) Qualifiers: Coronary Disease-Associated Artery/Lesion type: unspecified vessel or lesion type Associated angina: with unspecified angina Is this a current diagnosis for this admission?: Yes (2) CHF (congestive heart failure) Qualifiers: Heart failure type: diastolic Heart failure chronicity: acute on chronic Qualified Code(s): I50.33 - Acute on chronic diastolic (congestive) heart failure Is this a current diagnosis for this admission?: Yes (3) COPD (chronic obstructive pulmonary disease) Qualifiers: Emphysema type: unspecified Is this a current diagnosis for this admission?: Yes (4) Chest pain Qualifiers: Chest pain type: precordial pain Qualified Code(s): R07.2 - Precordial pain Is this a current diagnosis for this admission?: Yes (5) Diabetes Qualifiers: Diabetes mellitus type: type 2 Diabetes mellitus mcc insulin use: without remote computer terminal operator use Diabetes mellitus complication status: with unspecified complications Qualified Code(s): E11.8 - Type 2 diabetes mellitus with unspecified complications Is this a current diagnosis for this admission?: Yes (6) Cardiac pacemaker in situ Is this a current diagnosis for this admission?: Yes - Notes Notes: Coronary artery disease: Symptomatically stable. Nuclear stress test was negative for any pharmacologic stress-induced ischemia. These results were again reviewed with the patient and his . Congestive heart failure: Based on 2D echocardiogram is related to diastolic dysfunction: Possibly acute on chronic related to volume overload. Currently seems compensated. Patient however has not ambulated much. COPD: Currently is stable. Chest pain: [place] to be noncardiac based on nuclear stress test. Diabetes: Recommend good control of diabetes but avoid any hypo-or hyperglycemia. Pacemaker in situ: Patient has a dual-chamber pacemaker based on x-ray review. Based on telemetry strip review and twelve-lead EKG seems to be functioning normally. Patient has been encouraged to ambulate. - Time Time with patient: Greater than 35 minutes - CODE STATUS was discussed, patient remains full code. Surrogate decision-maker patient's . Multiple medical problems were addressed. More than 50% of the time spent coordinating care, discussing management plans with involved caregivers. Management plans discussed with involved personnels. Medical decision making was of moderate to high complexity, patient's has multiple comorbidities. Medications reviewed and adjusted accordingly: Yes
== END 2017-05-20 11:50 | disposition home or self-care (01) | DRG 292 ==
LOC: ER 15:23 → EH 18:23 → 4N 20:52
PROVIDERS: ADMIT Family Medicine; ATTEND Family Medicine
DX: I11.0 Hypertensive heart disease with heart failure (principal); I16.1 Hypertensive emergency; R18.8 Other ascites; I50.33 Acute on chronic diastolic (congestive) heart failure; I25.10 Atherosclerotic heart disease of native coronary artery without angina pectoris; E03.9 Hypothyroidism, unspecified; J44.9 Chronic obstructive pulmonary disease, unspecified; E78.5 Hyperlipidemia, unspecified; E11.9 Type 2 diabetes mellitus without complications; N40.0 Benign prostatic hyperplasia without lower urinary tract symptoms; Z95.0 Presence of cardiac pacemaker; Z87.891 Personal history of nicotine dependence; I25.2 Old myocardial infarction; Z79.84 Long term (current) use of oral hypoglycemic drugs; Z79.82 Long term (current) use of aspirin; Z79.51 Long term (current) use of inhaled steroids; Z79.899 Other long term (current) drug therapy; Z95.1 Presence of aortocoronary bypass graft
CPT/HCPCS: 36415; 71046; 74177; 76700; 78452; 80048; 80076; 81001; 82272; 82962; 83036; 83615; 83735; 83880; 84153; 84155; 84484; 85025; 85027; 85610; 85730; 93005; 93010; 93017; 93306; 93976; 94640; 96374; 99285; A9500; G8978-GP; G8979-GP; G8980-GP; J1815; J1940; J2785; J2920; J3490; J7620; Q9969

== ENCOUNTER → 2017-09-18 | Outpatient (CLI) | payer MEDICARE, BC ==
--- NOTE | 2017-09-18 16:43 | RADIOLOGY REPORT (SQ) ---
EXAM DESCRIPTION: CHEST PA/LATERAL COMPLETED DATE/TIME: 09/18/2017 4:31 pm REASON FOR STUDY: SHORTNESS OF BREATH COMPARISON: 05/15/2017. EXAM PARAMETERS: NUMBER OF VIEWS: two views TECHNIQUE: Digital Frontal and Lateral radiographic views of the chest acquired. RADIATION DOSE: NA LIMITATIONS: none FINDINGS: LUNGS AND PLEURA: Chronic interstitial changes. Linear atelectasis or scar in the left [place] base. Bilateral pleural effusions. MEDIASTINUM AND HILAR STRUCTURES: No masses or contour abnormalities. HEART AND VASCULAR STRUCTURES: Stable mild cardiomegaly. BONES: No acute findings. HARDWARE: Pacemaker, sternotomy wires, coronary bypass markers. OTHER: No other significant finding. IMPRESSION: CHRONIC INTERSTITIAL CHANGES LIKELY DUE TO SCARRING ALTHOUGH THERE MAY BE A COMPONENT OF INTERSTITIAL EDEMA. BILATERAL PLEURAL EFFUSIONS. NO CHANGE FROM THE PRIOR STUDY. TECHNICAL DOCUMENTATION: JOB ID: [id number] [employer]- All Rights Reserved Reading location - IP/workstation name: [email or web address]
[2017-09-18 17:41] LABS: ALANINE AMINOTRANSFERASE 25 U/L (21-72); ALBUMIN 3.8 g/dL (3.5-5.0); ALKALINE PHOSPHATASE 60 U/L (38-126); ANION GAP 11 (5-19); ASPARTATE AMINO TRANSFERASE 23 U/L (17-59); BILIRUBIN,DIRECT 0.3 mg/dL (0.0-0.4); BILIRUBIN,TOTAL 0.5 mg/dL (0.2-1.3); BLOOD UREA NITROGEN 17 mg/dL (7-20); CALCIUM 9.6 mg/dL (8.4-10.2); CARBON DIOXIDE 31 mmol/L (22-30); CHLORIDE 100 mmol/L (98-107); GLUCOSE 138 mg/dL (75-110); POTASSIUM 4.7 mmol/L (3.6-5.0); SODIUM 141.7 mmol/L (137-145); TOTAL PROTEIN 7.4 g/dL (6.3-8.2)
[2017-09-18 18:01] LABS: APPEARANCE,URINE CLOUDY; BILIRUBIN,URINE NEGATIVE (NEGATIVE); COLOR,URINE YELLOW; GLUCOSE, URINE NEGATIVE (NEGATIVE); KETONES,URINE NEGATIVE (NEGATIVE); LEUKOCYTE ESTERASE,URINE LARGE (NEGATIVE); NITRITE,URINE NEGATIVE (NEGATIVE); PROTEIN,URINE 30 mg/dL (NEGATIVE); UROBILINOGEN,URINE NEGATIVE mg/dL (<2.0)
[2017-09-19 11:06] LABS: ABSOLUTE BASOPHILS # (AUTO) 0.1 10^3/uL (0.0-0.2); ABSOLUTE EOSINOPHILS # (AUTO) 0.1 10^3/uL (0.0-0.6); ABSOLUTE LYMPHOCYTES (AUTO) 0.6 10^3/uL (0.5-4.7); ABSOLUTE MONOCYTES (AUTO) 0.6 10^3/uL (0.1-1.4); ABSOLUTE NEUT (AUTO) 7.1 10^3/uL (1.7-8.2); HEMATOCRIT 33.5 % (37.9-51.0); HEMOGLOBIN 11.2 g/dL (13.5-17.0); MEAN CORPUSCULAR HEMOGLOBIN 31.3 pg (27.0-33.4); MEAN CORPUSCULAR HGB CONC 33.5 g/dL (32.0-36.0); MEAN CORPUSCULAR VOLUME 93 fl (80-97); MONOCYTES % (AUTO) 6.6 % (3-13); RED BLOOD COUNT 3.59 10^6/uL (4.35-5.55); RED CELL DISTRIBUTION WIDTH 14.2 % (11.5-14.0); SEGMENTED NEUTROPHILS % (AUTO) 84.4 % (42-78); TOTAL CELLS COUNTED % (AUTO) 100 %; WHITE BLOOD COUNT 8.4 10^3/uL (4.0-10.5)
[2017-09-19 11:35] LABS: PLATELET COUNT 11 10^3/uL (150-450)
[2017-09-20 10:28] LABS: PATH REVIEW PATHOLOGIST REVIEWED
== END ==
LOC: OD 15:59
PROVIDERS: ATTEND Internal Medicine Cardiovascular Disease
DX: N39.0 Urinary tract infection, site not specified (principal); R53.83 Other fatigue; R06.02 Shortness of breath; I25.10 Atherosclerotic heart disease of native coronary artery without angina pectoris; R09.02 Hypoxemia; I27.23 Pulmonary hypertension due to lung diseases and hypoxia; R31.9 Hematuria, unspecified
CPT/HCPCS: 36415; 71046; 80053; 81001; 83880; 85025; 87086; 87088; 87186

== ENCOUNTER 2017-09-19 12:23 | Inpatient (IN) | payer MEDICARE, BC ==
--- NOTE | 2017-09-19 12:56 | ER Document Report ---
ED Medical Screen (RME) - General Chief Complaint: Abnormal Lab Results Stated Complaint: ABNORMAL LABS Time Seen by Provider: 09/19/17 12:53 Mode of Arrival: Ambulatory Information source: Patient TRAVEL OUTSIDE OF THE [place] IN LAST 30 DAYS: No - HPI Patient complains to provider of: abnormal labs Onset: This morning - pt had cbc drawn yeaterday and told to come to the ED due to low platelet count - Related Data Allergies/Adverse Reactions: Sulfa (Sulfonamide Antibiotics) Allergy (Verified 09/19/17 12:23) Past Medical History - Social History Chew tobacco use (# tins/day): No - quit Frequency of alcohol use: None Drug Abuse: None - Past Medical History Cardiac Medical History: Reports: Hx Congestive Heart Failure, Hx Heart Attack, Hx Hypercholesterolemia, Hx Hypertension Endocrine Medical History: Reports: Hx Diabetes Mellitus Type 2 Renal/ Medical History: Denies: Hx Peritoneal Dialysis Past Surgical History: Reports: Hx Cardiac Catheterization, Hx Pacemaker - Immunizations Hx Diphtheria, Pertussis, Tetanus Vaccination: Yes Physical Exam - Vital signs Vitals: Temp Pulse Resp BP Pulse Ox 98.1 F 84 16 120/52 L 94 09/19/17 12:30 09/19/17 12:30 09/19/17 12:30 09/19/17 12:30 09/19/17 12:30 Course - Vital Signs Vital signs: Temp Pulse Resp BP Pulse Ox 98.1 F 84 16 120/52 L 94 09/19/17 12:30 09/19/17 12:30 09/19/17 12:30 09/19/17 12:30 09/19/17 12:30 Doctor's Discharge - Discharge Referrals: ULI FRIED MD [Primary Care Provider] - Follow up as needed
[2017-09-19 13:44] LABS: ABSOLUTE BASOPHILS # (AUTO) 0.1 10^3/uL (0.0-0.2); ABSOLUTE EOSINOPHILS # (AUTO) 0.1 10^3/uL (0.0-0.6); ABSOLUTE LYMPHOCYTES (AUTO) 0.5 10^3/uL (0.5-4.7); ABSOLUTE MONOCYTES (AUTO) 0.5 10^3/uL (0.1-1.4); ABSOLUTE NEUT (AUTO) 6.4 10^3/uL (1.7-8.2); EOSINOPHILS % (AUTO) 1.1 % (0-6); HEMATOCRIT 34.5 % (37.9-51.0); HEMOGLOBIN 11.6 g/dL (13.5-17.0); MEAN CORPUSCULAR HEMOGLOBIN 31.4 pg (27.0-33.4); MEAN CORPUSCULAR HGB CONC 33.7 g/dL (32.0-36.0); MEAN CORPUSCULAR VOLUME 93 fl (80-97); MONOCYTES % (AUTO) 6.9 % (3-13); RED BLOOD COUNT 3.71 10^6/uL (4.35-5.55); RED CELL DISTRIBUTION WIDTH 14.7 % (11.5-14.0); TOTAL CELLS COUNTED % (AUTO) 100 %; WHITE BLOOD COUNT 7.5 10^3/uL (4.0-10.5)
[2017-09-19 13:53] LABS: APPEARANCE,URINE SLIGHTLY-CLOUDY; BILIRUBIN,URINE NEGATIVE (NEGATIVE); COLOR,URINE YELLOW; GLUCOSE, URINE NEGATIVE (NEGATIVE); KETONES,URINE NEGATIVE (NEGATIVE); LEUKOCYTE ESTERASE,URINE LARGE (NEGATIVE); NITRITE,URINE NEGATIVE (NEGATIVE); PROTEIN,URINE NEGATIVE (NEGATIVE); URINE SPECIFIC GRAVITY 1.005; UROBILINOGEN,URINE NEGATIVE mg/dL (<2.0)
[2017-09-19 14:11] LABS: ALANINE AMINOTRANSFERASE 25 U/L (21-72); ALBUMIN 3.8 g/dL (3.5-5.0); ALKALINE PHOSPHATASE 66 U/L (38-126); ANION GAP 11 (5-19); ASPARTATE AMINO TRANSFERASE 24 U/L (17-59); BILIRUBIN,DIRECT 0.2 mg/dL (0.0-0.4); BILIRUBIN,TOTAL 0.5 mg/dL (0.2-1.3); BLOOD UREA NITROGEN 16 mg/dL (7-20); CALCIUM 9.7 mg/dL (8.4-10.2); CARBON DIOXIDE 31 mmol/L (22-30); CHLORIDE 100 mmol/L (98-107); GLUCOSE 128 mg/dL (75-110); PLATELET COUNT 9 10^3/uL (150-450); POTASSIUM 4.4 mmol/L (3.6-5.0); SODIUM 141.8 mmol/L (137-145); TOTAL PROTEIN 7.4 g/dL (6.3-8.2)
--- NOTE | 2017-09-19 14:32 | ER Document Report ---
ED General - General Chief Complaint: Abnormal Lab Results Stated Complaint: ABNORMAL LABS Time Seen by Provider: 09/19/17 12:53 Mode of Arrival: Ambulatory Information source: Patient TRAVEL OUTSIDE OF THE [place] IN LAST 30 DAYS: No - Related Data Allergies/Adverse Reactions: Sulfa (Sulfonamide Antibiotics) Allergy (Verified 09/19/17 12:55) Past Medical History - General Information source: Patient - Social History Smoking Status: Former Smoker Chew tobacco use (# tins/day): No - quit Frequency of alcohol use: None Drug Abuse: None Family History: DM Patient has suicidal ideation: No Patient has homicidal ideation: No - Past Medical History Cardiac Medical History: Reports: Hx Congestive Heart Failure, Hx Heart Attack, Hx Hypercholesterolemia, Hx Hypertension Endocrine Medical History: Reports: Hx Diabetes Mellitus Type 2 Renal/ Medical History: Denies: Hx Peritoneal Dialysis Past Surgical History: Reports: Hx Cardiac Catheterization, Hx Pacemaker - Immunizations Hx Diphtheria, Pertussis, Tetanus Vaccination: Yes Review of Systems - Review of Systems Constitutional: No symptoms reported EENT: No symptoms reported Cardiovascular: No symptoms reported Respiratory: Short of breath - EXERTIONAL , CHRONIC Gastrointestinal: No symptoms reported. denies: Blood streaked bowels, Black stools, Rectal bleeding Genitourinary: No symptoms reported Musculoskeletal: No symptoms reported Skin: Other - PETECHIAE Hematologic/Lymphatic: See HPI Neurological/Psychological: No symptoms reported Physical Exam - Vital signs Vitals: Temp Pulse Resp BP Pulse Ox 98.1 F 84 16 120/52 L 94 09/19/17 12:30 09/19/17 12:30 09/19/17 12:30 09/19/17 12:30 09/19/17 12:30 - General General appearance: Appears well, Alert In distress: None - HEENT Head: Normocephalic Eyes: Pale conjunctiva Ears: Normal Nasal: Normal Mouth/Lips: Normal Mucous membranes: Normal - Respiratory Respiratory status: No respiratory distress Breath sounds: Normal - Cardiovascular Rhythm: Regular Heart sounds: Normal auscultation Murmur: No - Abdominal Inspection: Normal Distension: No distension - Extremities General upper extremity: Normal inspection General lower extremity: No: Normal inspection - PETECHIAE, ANKLES - Neurological Neuro grossly intact: Yes Cognition: Normal Orientation: AAOx4 - Psychological Associated symptoms: Normal affect, Normal mood - Skin Skin Temperature: Warm Skin Moisture: Dry Skin Color: Normal Skin Turgor: Elastic Course - Vital Signs Vital signs: Temp Pulse Resp BP Pulse Ox 98.1 F 84 16 120/52 L 94 09/19/17 12:30 09/19/17 12:30 09/19/17 12:30 09/19/17 12:30 09/19/17 12:30 - Laboratory Result Diagrams: 09/19/17 13:10 09/19/17 13:10 Laboratory results interpreted by me: 09/19/17 09/19/17 09/19/17 13:10 13:10 13:10 RBC 3.71 L Hgb 11.6 L Hct 34.5 L RDW 14.7 H Plt Count 9 L* Seg Neutrophils % 85.0 H Lymphocytes % 6.0 L Carbon Dioxide 31 H Glucose 128 H Urine Blood SMALL H Ur Leukocyte Esterase LARGE H - Consults DR. CONWAY Time consulted: 15:08 Consulted provider: will come to ER Discharge - Discharge Clinical Impression: Thrombocytopenia Condition: Fair Disposition: ADMITTED INPATIENT Admitting Provider: Hospitalist Unit Admitted: Telemetry Referrals: ULI FRIED MD [Primary Care Provider] - Follow up as needed
[2017-09-19] MEDS ORDERED: METHYLPREDNISOLONE INJ 125 MG/2 ML SDV IV ONE (15:13)
[2017-09-19] MEDS ORDERED: IPRATROPIUM/ALBUTEROL 0.5-2.5 MG/3 ML AMPUL NEB PRN (16:30)
[2017-09-19] MEDS ORDERED: ACETAMINOPHEN 325 MG TABLET PO PRN (16:30)
[2017-09-19] MEDS ORDERED: PROMETHAZINE HCL INJ 25 MG/1 ML VIAL IV PRN (16:30)
--- NOTE | 2017-09-19 16:51 | PDOC H&P ---
History of Present Illness Admission Date/PCP: 09/19/17 15:36 ULI FRIED Patient complains of: Abnormal blood tests History of Present Illness: LESLIE HERNANDEZ is a 82 year old male Patient stressed to the emergency room with complaints of abnormal lab results was found to have the platelet count of 9000. Patient does give a history of present hematuria although he said is mild and he has no record. There is no gingival bleeding, no hematemesis or hematochezia on no bleeding from anywhere else. Patient does give a history of bruising easily however this is chronic. His platelet count just about 4 months ago was within normal. This was 1 73, 000 however further review shows that patient has had thrombocytopenia since May 2017 when his white count went down as low as 99,000 and then subsequently went up to 1 73,000. He also noted some rash on his lower extremities. Hemoglobin has remained fairly stable and there is no azotemia urinalysis does show a small amount of blood as well as large leukocyte esterase Past Medical History Cardiac Medical History: Reports: Congestive Heart Failure, Myocardial Infarction, Hyperlipidema, Hypertension Endocrine Medical History: Reports: Diabetes Mellitus Type 2 Past Surgical History Past Surgical History: Reports: Cardiac Catheterization, Pacemaker Social History Information Source: Patient Smoking Status: Former Smoker Frequency of Alcohol Use: None Hx Recreational Drug Use: No Drugs: None - Advance Directive Resuscitation Status: Full Code Family History Family History: Reviewed & Not Pertinent, DM Parental Family History Reviewed: No Children Family History Reviewed: Yes Sibling(s) Family History Reviewed.: Unknown Medication/Allergy Home Medications: Albuterol Sulfate [Proair HFA Inhalation Aerosol 8.5 gm MDI] 2 puff IH Q4HP PRN 05/15/17 Aspirin [Aspirin EC] 81 mg PO DAILY 05/15/17 Cetirizine HCl [Zyrtec 10 mg Tablet] 10 mg PO DAILY 05/15/17 Finasteride [Proscar 5 mg Tablet] 5 mg PO DAILY 05/15/17 Glipizide [Glucotrol 5 mg Tablet] 2.5 mg PO BID 05/15/17 Levothyroxine Sodium [Synthroid 0.025 mg Tablet] 0.025 mg PO Q6AM 05/15/17 Metformin HCl [Glucophage 500 mg Tablet] 500 mg PO BID 05/15/17 Multivit-Minerals/FA/Lycopene [One Daily For Men Tablet] 1 tab PO DAILY Simvastatin 10 mg PO QHS 05/15/17 Amlodipine Besylate [Norvasc 5 mg Tablet] 10 mg PO DAILY #60 tablet 05/20/17 Bumetanide [Bumex 1 mg Tablet] 1 mg PO DAILY #30 tablet 05/20/17 Fluticasone/Salmeterol [Advair 250-50 Diskus 14 Dose/Diskus] 1 inh IH Q12 #60 inhaler 05/20/17 Isosorbide Mononitrate [Imdur 60 mg Tablet.er] 60 mg PO DAILY #30 tab.er.24h 12/27 Lisinopril [Prinivil 10 mg Tablet] 20 mg PO DAILY #60 tablet 05/20/17 Metoprolol Succinate [Toprol Xl 50 mg Tab.sr] 50 mg PO DAILY #30 tab.sr.24h 12/27 Allergies/Adverse Reactions: Sulfa (Sulfonamide Antibiotics) Allergy (Verified 09/19/17 12:55) Review of Systems All systems: reviewed and no additional remarkable complaints except as stated Physical Exam Vital Signs: Temp Pulse Resp BP Pulse Ox 98.1 F 84 20 146/59 H 96 09/19/17 16:30 09/19/17 12:30 09/19/17 16:30 09/19/17 16:29 09/19/17 16:30 General appearance: PRESENT: no acute distress, other - Elderly and frail Head exam: PRESENT: atraumatic Eye exam: PRESENT: conjunctiva pink, EOMI, PERRLA. ABSENT: scleral icterus Ear exam: PRESENT: normal external ear exam. ABSENT: bleeding Respiratory exam: PRESENT: clear to auscultation kris. ABSENT: rales, rhonchi, wheezes Cardiovascular exam: PRESENT: RRR. ABSENT: diastolic murmur, rubs, systolic murmur GI/Abdominal exam: PRESENT: normal bowel sounds, soft. ABSENT: distended, guarding, mass, organolmegaly, rebound, tenderness Rectal exam: PRESENT: deferred Musculoskeletal exam: PRESENT: ambulatory, full ROM Neurological exam: PRESENT: alert, awake, oriented to person, oriented to place , oriented to time, oriented to situation, CN II-XII grossly intact. ABSENT: motor sensory deficit Psychiatric exam: PRESENT: appropriate affect Skin exam: PRESENT: petechiae Results Laboratory Results: 09/19/17 13:10 09/19/17 13:10 MCV 93 fl (80-97) 09/19/17 13:10 MCH 31.4 pg (27.0-33.4) 09/19/17 13:10 MCHC 33.7 g/dL (32.0-36.0) 09/19/17 13:10 RDW 14.7 % (11.5-14.0) H 09/19/17 13:10 Seg Neutrophils % 85.0 % (42-78) H 09/19/17 13:10 Lymphocytes % 6.0 % (13-45) L 09/19/17 13:10 Monocytes % 6.9 % (3-13) 09/19/17 13:10 Eosinophils % 1.1 % (0-6) 09/19/17 13:10 Basophils % 1.0 % (0-2) 09/19/17 13:10 Absolute Neutrophils 6.4 10^3/uL (1.7-8.2) 09/19/17 13:10 Absolute Lymphocytes 0.5 10^3/uL (0.5-4.7) 09/19/17 13:10 Absolute Monocytes 0.5 10^3/uL (0.1-1.4) 09/19/17 13:10 Absolute Eosinophils 0.1 10^3/uL (0.0-0.6) 09/19/17 13:10 Absolute Basophils 0.1 10^3/uL (0.0-0.2) 09/19/17 13:10 Chloride 100 mmol/L (98-107) 09/19/17 13:10 Carbon Dioxide 31 mmol/L (22-30) H 09/19/17 13:10 Anion Gap 11 (5-19) 09/19/17 13:10 Est GFR ( Amer) > 60 (>60) 09/19/17 13:10 Est GFR (Non-Af Amer) > 60 (>60) 09/19/17 13:10 Glucose 128 mg/dL (75-110) H 09/19/17 13:10 Calcium 9.7 mg/dL (8.4-10.2) 09/19/17 13:10 Total Bilirubin 0.5 mg/dL (0.2-1.3) 09/19/17 13:10 AST 24 U/L (17-59) 09/19/17 13:10 ALT 25 U/L (21-72) 09/19/17 13:10 Alkaline Phosphatase 66 U/L (38-126) 09/19/17 13:10 Total Protein 7.4 g/dL (6.3-8.2) 09/19/17 13:10 Albumin 3.8 g/dL (3.5-5.0) 09/19/17 13:10 Urine Color YELLOW 09/19/17 13:10 Urine Appearance SLIGHTLY-CLOUDY 09/19/17 13:10 Urine pH 6.0 (5.0-9.0) 09/19/17 13:10 Ur Specific [place] 1.005 09/19/17 13:10 Urine Protein NEGATIVE mg/dL (NEGATIVE) 09/19/17 13:10 Urine Glucose (UA) NEGATIVE mg/dL (NEGATIVE) 09/19/17 13:10 Urine Ketones NEGATIVE mg/dL (NEGATIVE) 09/19/17 13:10 Urine Blood SMALL (NEGATIVE) H 09/19/17 13:10 Urine Nitrite NEGATIVE (NEGATIVE) 09/19/17 13:10 Ur Leukocyte Esterase LARGE (NEGATIVE) H 09/19/17 13:10 Urine WBC (Auto) 49 /HPF 09/19/17 13:10 Urine RBC (Auto) 5 /HPF 09/19/17 13:10 Assessment & Plan - Diagnosis (1) Thrombocytopenia Is this a current diagnosis for this admission?: Yes (2) Cardiac pacemaker in situ Is this a current diagnosis for this admission?: Yes - Time Time Spent: 50 to 70 Minutes Medications reviewed and adjusted accordingly: Yes Anticipated discharge: Home Within: within 72 hours - Inpatient Certification Based on my medical assessment, after consideration of the patient's comorbidities, presenting symptoms, or acuity I expect that the services needed warrant INPATIENT care.: Yes Medical Necessity: Risk of Complication if Not Cared For in Hospital, Risk of Diagnosis Which Will Require Inpatient Eval/Care/Monitoring - Plan Summary Plan Summary: Lower extremities patient has severe thrombocytopenia of unclear etiology. 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 Have discussed with Dr. Ferrer. He has suggested no transfusion for now as patient is not actively bleeding. Solu-Medrol 125 mg IV has been given to patient and will follow up on his blood in a.m. I have also confirmed that the blood bank has platelets in hand in case there is a need for platelet transfusion. Looking back to his history it appears something may have been going on since May of this year as his platelet was beginning to decrease although he had one outlier platelet count of 173 Urinalysis does not show any massive hematuria although patient may have a slight urinary tract infection. I will hold off on starting him on any antibiotic at this time and follow up on urine culture. Patient denies any dysuria frequency or any other symptoms of acute cystitis. Review of his home medications also does not show any overt platelets suppressing agent. Aspirin will be on hold. He will also not be placed on any prophylactic anticoagulant
[2017-09-19] MEDS ORDERED: ALBUTEROL SULFATE HFA (90 MCG/PUFF) 200 PUFF/8.5 GM MDI IH PRN (22:09)
[2017-09-19] MEDS: TEMAZEPAM 7.5 MG CAPSULE PO PRN (22:21)
[2017-09-19] MEDS ORDERED: FLUTICASONE/SALMETEROL DISKUS 250-50 MCG/DOSE IH ONE (22:30)
[2017-09-19] MEDS ORDERED: SIMVASTATIN 10 MG TABLET PO ONE (22:30)
[2017-09-20] MEDS: LEVOTHYROXINE SODIUM 0.025 MG TABLET PO SCH (05:15)
[2017-09-20 06:41] LABS: HEMATOCRIT 34.3 % (37.9-51.0); HEMOGLOBIN 11.7 g/dL (13.5-17.0); MEAN CORPUSCULAR HEMOGLOBIN 31.3 pg (27.0-33.4); MEAN CORPUSCULAR VOLUME 92 fl (80-97); RED BLOOD COUNT 3.72 10^6/uL (4.35-5.55); RED CELL DISTRIBUTION WIDTH 14.3 % (11.5-14.0); WHITE BLOOD COUNT 8.8 10^3/uL (4.0-10.5)
[2017-09-20 07:19] LABS: ANION GAP 14 (5-19); BLOOD UREA NITROGEN 24 mg/dL (7-20); CALCIUM 9.6 mg/dL (8.4-10.2); CARBON DIOXIDE 24 mmol/L (22-30); CHLORIDE 101 mmol/L (98-107); GLUCOSE 208 mg/dL (75-110); POTASSIUM 4.5 mmol/L (3.6-5.0); SODIUM 139.4 mmol/L (137-145)
[2017-09-20 07:41] LABS: ABSOLUTE LYMPHOCYTES# (MANUAL) 0.2 10^3/uL (0.5-4.7); ABSOLUTE MONOCYTES # (MANUAL) 0.1 10^3/uL (0.1-1.4); ABSOLUTE NEUTROPHILS# (MANUAL) 8.5 10^3/uL (1.7-8.2); BASOPHILS % (MANUAL) 0 % (0-2); EOSINOPHILS % (MANUAL) 0 % (0-6); LYMPHOCYTES % (MANUAL) 2 % (13-45); MONOCYTES % (MANUAL) 1 % (3-13); SEGMENTED NEUTROPHILS % (MAN) 97 % (42-78); TOTAL CELLS COUNTED 100
[2017-09-20 07:44] LABS: ANISOCYTOSIS SLIGHT; PLATELET COMMENT DECREASED
[2017-09-20 07:47] LABS: PLATELET COUNT 24 10^3/uL (150-450)
[2017-09-20] MEDS ORDERED: LYCOPENE PO SCH (10:00)
[2017-09-20] MEDS ORDERED: MULTIVIT MINERALS PO SCH (10:00)
[2017-09-20] MEDS ORDERED: [UNRECOGNIZED DRUG - OTHER] PO SCH (10:00)
[2017-09-20] MEDS: GLIPIZIDE 5 MG TABLET PO SCH ×2 (10:07→17:01)
[2017-09-20] MEDS: DOCUSATE SODIUM 100 MG CAPSULE PO SCH (10:09)
[2017-09-20] MEDS: LOSARTAN POTASSIUM 25 MG TABLET PO SCH (10:09)
[2017-09-20] MEDS: LISINOPRIL 10 MG TABLET PO SCH (10:09)
[2017-09-20] MEDS: PREDNISONE 20 MG TABLET PO SCH (10:10)
[2017-09-20] MEDS: FINASTERIDE 5 MG TABLET PO SCH (10:10)
[2017-09-20] MEDS: ISOSORBIDE MONONITRATE 60 MG TAB.ER.24H PO SCH (10:10)
[2017-09-20] MEDS: METOPROLOL SUCCINATE 50 MG TAB.SR.24H PO SCH (10:11)
[2017-09-20] MEDS: BUMETANIDE 1 MG TABLET PO SCH (10:11)
[2017-09-20] MEDS: AMLODIPINE BESYLATE 5 MG TABLET PO SCH (10:11)
[2017-09-20] MEDS: METFORMIN HCL 500 MG TABLET PO SCH ×2 (10:12→17:00)
[2017-09-20] MEDS: FLUTICASONE/SALMETEROL DISKUS 250-50 MCG/DOSE IH SCH ×2 (10:12→21:49)
--- NOTE | 2017-09-20 10:47 | PDOC CONSULTATION ---
Consultation Consult Date: 09/20/17 Attending physician:: YANDEL CONWAY Consult reason:: Thrombocytopenia History of Present Illness Admission Date/PCP: 09/19/17 15:36 ULI TODD Patient complains of: Thrombocytopenia, increased shortness of breath History of Present Illness: LESLIE HERNANDEZ is a 82 year old male with known history of CHF, CAD, DM 2, recently had a CBC drawn by his emr analyst, Dr. Todd on Thursday, and the platelet count was very low so they redrew it on Thursday. Unfortunately it still remained under 10, so he was asked to come to the ED. Of note over the last 3-4 days he has been experiencing increasing shortness of breath as well, so there was some concern of CHF exacerbation. Upon presentation his platelet count was 9, he is not actively bleeding. I reviewed his labs from previous admissions and he has history of normal platelets just 4 months ago, of note on the previous CHF exacerbation admission in May, his platelet count did dip to 99 but came back up to normalize. He is not complaining to me of any active bleeding, no hematuria no hematemesis. I instructed ER to give him 1 dose of Solu-Medrol 125 mg yesterday, and his platelet count today is improved to 24. Past Medical History Cardiac Medical History: Reports: Congestive Heart Failure, Myocardial Infarction, Hyperlipidema, Hypertension Endocrine Medical History: Reports: Diabetes Mellitus Type 2 Past Surgical History Past Surgical History: Reports: Cardiac Catheterization, Pacemaker Social History Information Source: Patient Smoking Status: Former Smoker Frequency of Alcohol Use: None Hx Recreational Drug Use: No Drugs: None Hx Prescription Drug Abuse: No - Advance Directive Resuscitation Status: Full Code Family History Family History: Reviewed & Not Pertinent, DM Parental Family History Reviewed: Yes Children Family History Reviewed: Yes Sibling(s) Family History Reviewed.: Yes Medication/Allergy Home Medications: Albuterol Sulfate [Proair HFA Inhalation Aerosol 8.5 gm MDI] 2 puff IH Q4HP PRN 05/15/17 Finasteride [Proscar 5 mg Tablet] 5 mg PO DAILY 05/15/17 Glipizide [Glucotrol 5 mg Tablet] 2.5 mg PO BID 05/15/17 Levothyroxine Sodium [Synthroid 0.025 mg Tablet] 0.025 mg PO Q6AM 05/15/17 Metformin HCl [Glucophage 500 mg Tablet] 500 mg PO BID 05/15/17 Multivit-Minerals/FA/Lycopene [One Daily For Men Tablet] 1 tab PO DAILY Simvastatin 10 mg PO QHS 05/15/17 Bumetanide [Bumex 1 mg Tablet] 1 mg PO DAILY #30 tablet 05/20/17 Fluticasone/Salmeterol [Advair 250-50 Diskus 14 Dose/Diskus] 1 inh IH Q12 #60 inhaler 05/20/17 Metoprolol Succinate [Toprol Xl 50 mg Tab.sr] 50 mg PO DAILY #30 tab.sr.24h 12/27 Amlodipine Besylate [Norvasc 5 mg Tablet] 5 mg PO DAILY 09/19/17 Isosorbide Mononitrate [Imdur 60 mg Tablet.er] 30 mg PO DAILY 09/19/17 Lisinopril [Prinivil 10 mg Tablet] 10 mg PO DAILY 09/19/17 Losartan Potassium 25 mg PO DAILY 09/19/17 Allergies/Adverse Reactions: Sulfa (Sulfonamide Antibiotics) Allergy (Verified 09/19/17 12:55) Review of Systems Constitutional: PRESENT: fatigue, weakness Cardiovascular: PRESENT: dyspnea on exertion, edema, orthropnea Gastrointestinal: ABSENT: abdominal pain, constipation, diarrhea, hematemesis, hematochezia, nausea, vomiting Neurological: ABSENT: abnormal gait, abnormal speech, confusion, dizziness, focal weakness, syncope Endocrine: ABSENT: cold intolerance, heat intolerance, polydipsia, polyuria Physical Exam Vital Signs: Temp Pulse Resp BP Pulse Ox 97.5 F 72 17 131/58 H 93 09/20/17 07:26 09/20/17 07:26 09/20/17 07:26 09/20/17 07:26 09/20/17 07:26 Intake & Output 09/19/17 09/20/17 09/21/17 06:59 06:59 06:59 Intake Total 492 Balance 492 Weight 57.1 kg General appearance: PRESENT: no acute distress, well-developed, well-nourished Head exam: PRESENT: atraumatic, normocephalic Eye exam: PRESENT: conjunctiva pink, EOMI, PERRLA. ABSENT: scleral icterus Ear exam: PRESENT: normal external ear exam Mouth exam: PRESENT: moist, tongue midline Neck exam: ABSENT: carotid bruit, JVD, lymphadenopathy, thyromegaly Respiratory exam: PRESENT: clear to auscultation kris. ABSENT: rales, rhonchi, wheezes Cardiovascular exam: PRESENT: RRR. ABSENT: diastolic murmur, rubs, systolic murmur Pulses: PRESENT: normal dorsalis pedis pul Vascular exam: PRESENT: normal capillary refill GI/Abdominal exam: PRESENT: normal bowel sounds, soft. ABSENT: distended, guarding, mass, organolmegaly, rebound, tenderness Rectal exam: PRESENT: deferred Extremities exam: PRESENT: full ROM. ABSENT: calf tenderness, clubbing, pedal edema Neurological exam: PRESENT: alert, awake, oriented to person, oriented to place , oriented to time, oriented to situation, CN II-XII grossly intact. ABSENT: motor sensory deficit Psychiatric exam: PRESENT: appropriate affect, normal mood. ABSENT: homicidal ideation, suicidal ideation Skin exam: PRESENT: dry, intact, warm. ABSENT: cyanosis, rash Results Laboratory Results: 09/20/17 05:12 09/20/17 05:12 09/20/17 09/20/17 05:12 05:12 WBC 8.8 RBC 3.72 L Hgb 11.7 L Hct 34.3 L MCV 92 MCH 31.3 MCHC 34.0 RDW 14.3 H Plt Count 24 L* D Seg Neutrophils % Not Reportable Lymphocytes % Not Reportable Monocytes % Not Reportable Eosinophils % Not Reportable Basophils % Not Reportable Absolute Neutrophils Not Reportable Absolute Lymphocytes Not Reportable Absolute Monocytes Not Reportable Absolute Eosinophils Not Reportable Absolute Basophils Not Reportable Sodium 139.4 Potassium 4.5 Chloride 101 Carbon Dioxide 24 Anion Gap 14 BUN 24 H Creatinine 0.84 Est GFR ( Amer) > 60 Est GFR (Non-Af Amer) > 60 Glucose 208 H Calcium 9.6 Assessment & Plan - Diagnosis (1) Acute ITP Is this a current diagnosis for this admission?: Yes Plan: Patient with acute immune thrombocytopenic purpura, responded to 1 dose of Solu- Medrol, will plan on giving prednisone 60 mg daily, and monitoring platelets for the next 24-48 hours. I have asked for hospitalist team to watch sugars, he will probably need some intervention for that. He will ultimately require 3- 4 week taper of prednisone so will need to monitor blood glucose closely. In addition, he is having increased shortness of breath so I have asked Dr. hoyos through to evaluate him, he may be in a CHF exacerbation now and steroids can also worsen that. - Time Time Spent: Greater than 70 Minutes - Inpatient Certification Based on my medical assessment, after consideration of the patient's comorbidities, presenting symptoms, or acuity I expect that the services needed warrant INPATIENT care.: Yes I certify that my determination is in accordance with my understanding of Medicare's requirements for reasonable and necessary INPATIENT services [42 CFR 412.3e].: Yes Medical Necessity: Risk of Complication if Not Cared For in Hospital
--- NOTE | 2017-09-20 13:17 | PDOC PROGRESS REPORT ---
Subjective Progress Note for:: 09/20/17 Subjective:: Requested to be seen by the oncologist. Patient was seen in my office, September 18, 2017, by my physician electrician station assistant, who sent patient to the emergency room because of low platelets. Complete blood count was ordered because of findings of PTT. Patient has noted some shortness of breath and occasional wheezing. Patient has also not been feeling well in a nonspecific term. Had noted some trouble walking. He is also been losing weight. Patient had also noted some swelling in his ankles. Reason For Visit: THROMBOCYTOPENIA Physical Exam Vital Signs: Temp Pulse Resp BP Pulse Ox 97.3 F 61 17 125/40 L 98 09/20/17 11:24 09/20/17 11:24 09/20/17 11:24 09/20/17 11:24 09/20/17 11:24 Intake & Output 09/19/17 09/20/17 09/21/17 06:59 06:59 06:59 Intake Total 492 Balance 492 Weight 57.1 kg Exam: GENERAL: well-nourished and in no acute distress. Alert and oriented x3 HEAD: Atraumatic, normocephalic. EYES: Pupils equal round and reactive to light, extraocular movements intact, sclera anicteric, conjunctiva are normal. ENT: TMs normal, nares patent, oropharynx clear without exudates. Moist mucous membranes. No oral ulcerations or bleeding gums noted NECK: supple without lymphadenopathy. Trachea is central. No cervical or axillary lymphadenopathy noted. Carotids are 2+, JVD WNL LUNGS: Respiration seems nonlabored, no significant accessory muscle action noted. Breath sounds clear to auscultation bilaterally and equal noted. No wheezes rales or rhonchi noted. No significant dullness noted on percussion. CHEST: Palpation of the chest wall shows no significant chest wall tenderness. HEART: [place] [employer], No PSH, 1/6 SHIRLEY aortic area, 1/6 cannon systolic murmur mitral area, no rubs, no gallops. ABDOMEN: Soft, no significant tenderness appreciated, normoactive bowel sounds. No guarding, no rebound. No rigidity noted . No masses appreciated. EXTREMITIES: Pedal pulses are 1-2+, no calf tenderness noted. No clubbing or cyanosis. negative pedal edema noted NEUROLOGICAL: Focused neurological exam showed no significant neurologic deficit. Normal speech, no focal weakness appreciated. PSYCH: Normal mood, normal affect. Judgment and insight within normal limits. SKIN: No significant ecchymosis, skin is noted to be warm. MUSCULOSKELETAL EXAM: No significant acute joint swelling noted. Results Laboratory Results: 09/20/17 05:12 09/20/17 05:12 09/20/17 09/20/17 05:12 05:12 WBC 8.8 RBC 3.72 L Hgb 11.7 L Hct 34.3 L MCV 92 MCH 31.3 MCHC 34.0 RDW 14.3 H Plt Count 24 L* D Seg Neutrophils % Not Reportable Lymphocytes % Not Reportable Monocytes % Not Reportable Eosinophils % Not Reportable Basophils % Not Reportable Absolute Neutrophils Not Reportable Absolute Lymphocytes Not Reportable Absolute Monocytes Not Reportable Absolute Eosinophils Not Reportable Absolute Basophils Not Reportable Sodium 139.4 Potassium 4.5 Chloride 101 Carbon Dioxide 24 Anion Gap 14 BUN 24 H Creatinine 0.84 Est GFR ( Amer) > 60 Est GFR (Non-Af Amer) > 60 Glucose 208 H Calcium 9.6 Assessment & Plan - Diagnosis (1) Acute ITP Is this a current diagnosis for this admission?: Yes (2) CAD (coronary artery disease) Qualifiers: Coronary Disease-Associated Artery/Lesion type: unspecified vessel or lesion type Associated angina: with unspecified angina Is this a current diagnosis for this admission?: Yes (3) CHF (congestive heart failure) Qualifiers: Heart failure type: diastolic Heart failure chronicity: acute on chronic Qualified Code(s): I50.33 - Acute on chronic diastolic (congestive) heart failure Is this a current diagnosis for this admission?: Yes (4) COPD (chronic obstructive pulmonary disease) Qualifiers: Emphysema type: unspecified Is this a current diagnosis for this admission?: Yes (5) Cardiac pacemaker in situ Is this a current diagnosis for this admission?: Yes (6) Diabetes Qualifiers: Diabetes mellitus type: type 2 Diabetes mellitus terminal carman insulin use: without fci use Diabetes mellitus complication status: with unspecified complications Qualified Code(s): E11.8 - Type 2 diabetes mellitus with unspecified complications Is this a current diagnosis for this admission?: Yes (7) Dyspnea Qualifiers: Dyspnea type: dyspnea on exertion Qualified Code(s): R06.09 - Other forms of dyspnea Is this a current diagnosis for this admission?: Yes - Notes Notes: Acute ITP: This was the reason for patient's admission. Patient did respond to IV Solu-Medrol with platelet count improving. Currently will hold antiplatelets unless platelet count over 100,000. CAD: Symptomatically stable without any angina. Congestive heart failure: Recommend resume home diuretic therapy. COPD: Patient seems to have significant COPD. He is on home oxygen at 2 L. Recommend reinstituting that. Diabetes: We will leave management to the hospitalist. Dyspnea: Possibly combination of COPD and possible diastolic CHF. Patient did have recent nuclear stress test in May which was noted to be negative. A 2D echo had shown normal LVEF. Recommend oxygen supplementation. Sleep apnea syndrome: Patient to use nightly CPAP and oxygen to be added in line to CPAP. - Time Time with patient: Greater than 35 minutes - CODE STATUS was discussed, patient remains full code. Surrogate decision-maker unchanged. Multiple medical problems were addressed. More than 50% of the time spent coordinating care, discussing management plans with involved caregivers. Management plans discussed with involved personnels. Medical decision making was of moderate to high complexity, patient's has multiple comorbidities. Medications reviewed and adjusted accordingly: Yes
[2017-09-20] MEDS ORDERED: DEXTROSE 40% GEL 15 GM TUBE PO PRN (13:32)
[2017-09-20] MEDS ORDERED: DEXTROSE 50%-WATER SYRINGE 12.5 GM/25 ML DOSE IV PRN (13:32)
[2017-09-20] MEDS ORDERED: DEXTROSE 50%-WATER SYRINGE 25 GM/50 ML DOSE IV PRN (13:32)
[2017-09-20] MEDS ORDERED: DEXTROSE 40% GEL 15 GM TUBE X 2 PO PRN (13:32)
[2017-09-20] MEDS ORDERED: GLUCAGON,HUMAN RECOMB 1 MG INJ IM PRN (13:32)
--- NOTE | 2017-09-20 15:44 | RADIOLOGY REPORT (SQ) ---
EXAM DESCRIPTION: CHEST 2 VIEWS COMPLETED DATE/TIME: 09/20/2017 2:36 pm REASON FOR STUDY: shortness of breath COMPARISON: 05/15/2017 NUMBER OF VIEWS: Two view TECHNIQUE: Frontal and lateral radiographic images of the chest acquired. LIMITATIONS: None. FINDINGS: LUNGS AND PLEURA: Bilateral pleural effusions, right greater than left. MEDIASTINUM AND HILAR STRUCTURES: Stable heart size and mediastinal structures. HEART AND VASCULAR STRUCTURES: Stable appearance. SUPPORT DEVICES: Stable position of right dual lead pacemaker. BONES: No acute findings. OTHER: CABG. IMPRESSION: Congestive heart failure. TECHNICAL DOCUMENTATION: JOB ID: [id number] [employer]- All Rights Reserved Reading location - IP/workstation name: [email or web address]
--- NOTE | 2017-09-20 16:01 | PDOC PROGRESS REPORT ---
Subjective Progress Note for:: 09/20/17 Subjective:: No new complaints Reason For Visit: THROMBOCYTOPENIA Physical Exam Vital Signs: Temp Pulse Resp BP Pulse Ox 97.3 F 63 16 125/40 L 98 09/20/17 11:24 09/20/17 15:09 09/20/17 15:09 09/20/17 11:24 09/20/17 11:24 Intake & Output 09/19/17 09/20/17 09/21/17 06:59 06:59 06:59 Intake Total 492 Balance 492 Weight 57.1 kg General appearance: PRESENT: no acute distress, other Head exam: PRESENT: atraumatic, normocephalic Eye exam: PRESENT: conjunctiva pink, EOMI, PERRLA. ABSENT: scleral icterus Ear exam: PRESENT: normal external ear exam Mouth exam: PRESENT: moist, tongue midline Neck exam: ABSENT: carotid bruit, JVD, lymphadenopathy, thyromegaly Respiratory exam: PRESENT: clear to auscultation kris. ABSENT: rales, rhonchi, wheezes Cardiovascular exam: PRESENT: RRR. ABSENT: diastolic murmur, rubs, systolic murmur Pulses: PRESENT: normal dorsalis pedis pul Vascular exam: PRESENT: normal capillary refill GI/Abdominal exam: PRESENT: normal bowel sounds, soft. ABSENT: distended, guarding, mass, organolmegaly, rebound, tenderness Rectal exam: PRESENT: deferred Extremities exam: PRESENT: full ROM. ABSENT: calf tenderness, clubbing, pedal edema Neurological exam: PRESENT: alert, awake, oriented to person, oriented to place , oriented to time, oriented to situation, CN II-XII grossly intact. ABSENT: motor sensory deficit Psychiatric exam: PRESENT: appropriate affect, normal mood. ABSENT: homicidal ideation, suicidal ideation Skin exam: PRESENT: dry, intact, petechiae, rash, warm. ABSENT: cyanosis Results Laboratory Results: 09/20/17 05:12 09/20/17 05:12 09/20/17 09/20/17 05:12 05:12 WBC 8.8 RBC 3.72 L Hgb 11.7 L Hct 34.3 L MCV 92 MCH 31.3 MCHC 34.0 RDW 14.3 H Plt Count 24 L* D Seg Neutrophils % Not Reportable Lymphocytes % Not Reportable Monocytes % Not Reportable Eosinophils % Not Reportable Basophils % Not Reportable Absolute Neutrophils Not Reportable Absolute Lymphocytes Not Reportable Absolute Monocytes Not Reportable Absolute Eosinophils Not Reportable Absolute Basophils Not Reportable Sodium 139.4 Potassium 4.5 Chloride 101 Carbon Dioxide 24 Anion Gap 14 BUN 24 H Creatinine 0.84 Est GFR ( Amer) > 60 Est GFR (Non-Af Amer) > 60 Glucose 208 H Calcium 9.6 Impressions: Chest X-Ray 09/20/17 00:00 IMPRESSION: Congestive heart failure. Assessment & Plan - Diagnosis (1) Thrombocytopenia Is this a current diagnosis for this admission?: Yes (2) Cardiac pacemaker in situ Is this a current diagnosis for this admission?: Yes - Time Time Spent with patient: 15-24 minutes Medications reviewed and adjusted accordingly: Yes Anticipated discharge: Home Within: within 72 hours - Inpatient Certification Based on my medical assessment, after consideration of the patient's comorbidities, presenting symptoms, or acuity I expect that the services needed warrant INPATIENT care.: Yes Medical Necessity: Risk of Complication if Not Cared For in Hospital, Risk of Diagnosis Which Will Require Inpatient Eval/Care/Monitoring - Plan Summary Plan Summary: 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 He did respond to 1 dose of Solu-Medrol and has been placed on oral prednisone. The leg count did come up from 9000-24, 000. There remains no evidence of any bleeding. Antiplatelets currently on hold. 2. Chronic congestive heart failure patient is euvolemic 3. Chronic respiratory failure on home oxygen will continue on 2 L of oxygen 4. Stable COPD 5. Type 2 diabetes mellitus which will probably be worsened with need for long- term steroid. Patient has been placed on sliding scale insulin and will place him on insulin basal as needed. He will receive education on self insulin injection. 6. Patient apparently had a 2D echo recently which shows normal LVEF. He is also on CPAP.
[2017-09-20] MEDS: INSULIN LISPRO 100 UNIT/ML 3 ML VIAL SUBCUT PRN ×2 (16:27→21:49)
[2017-09-20] MEDS: LEVOFLOXACIN 500 MG/D5W RTU 500 MG/100 ML RTUPB IV SCH (16:29)
[2017-09-20] MEDS: LANSOPRAZOLE 30 MG TAB.RAP.DR PO SCH (16:47)
[2017-09-20] MEDS: SIMVASTATIN 10 MG TABLET PO SCH (21:48)
[2017-09-20] MEDS: TEMAZEPAM 7.5 MG CAPSULE PO PRN (21:48)
[2017-09-21 04:34] LABS: HEMATOCRIT 30.8 % (37.9-51.0); HEMOGLOBIN 10.3 g/dL (13.5-17.0); MEAN CORPUSCULAR HEMOGLOBIN 30.9 pg (27.0-33.4); MEAN CORPUSCULAR HGB CONC 33.3 g/dL (32.0-36.0); MEAN CORPUSCULAR VOLUME 93 fl (80-97); RED BLOOD COUNT 3.33 10^6/uL (4.35-5.55); RED CELL DISTRIBUTION WIDTH 14.9 % (11.5-14.0)
[2017-09-21 04:50] LABS: WHITE BLOOD COUNT 21.9 10^3/uL (4.0-10.5)
[2017-09-21 04:51] LABS: PLATELET COUNT 68 10^3/uL (150-450)
[2017-09-21 05:23] LABS: ABSOLUTE LYMPHOCYTES# (MANUAL) 1.3 10^3/uL (0.5-4.7); ABSOLUTE MONOCYTES # (MANUAL) 0.7 10^3/uL (0.1-1.4); ABSOLUTE NEUTROPHILS# (MANUAL) 19.9 10^3/uL (1.7-8.2); BAND NEUTROPHILS % (MANUAL) 2 % (3-5); BASOPHILS % (MANUAL) 0 % (0-2); EOSINOPHILS % (MANUAL) 0 % (0-6); LYMPHOCYTES % (MANUAL) 3 % (13-45); MONOCYTES % (MANUAL) 3 % (3-13); PLATELET COMMENT DECREASED; SEGMENTED NEUTROPHILS % (MAN) 89 % (42-78); TOTAL CELLS COUNTED 100
[2017-09-21 05:26] LABS: ANISOCYTOSIS 1+; TOXIC GRANULATION SLIGHT
[2017-09-21] MEDS: LANSOPRAZOLE 30 MG TAB.RAP.DR PO SCH ×2 (06:59→16:16)
[2017-09-21] MEDS: LEVOTHYROXINE SODIUM 0.025 MG TABLET PO SCH (06:59)
[2017-09-21] MEDS: INSULIN LISPRO 100 UNIT/ML 3 ML VIAL SUBCUT PRN ×3 (07:18→16:16)
--- NOTE | 2017-09-21 09:05 | PDOC PROGRESS REPORT ---
Subjective Progress Note for:: 09/21/17 Subjective:: Patient doing a little bit better today, breathing improved. Reason For Visit: THROMBOCYTOPENIA Physical Exam Vital Signs: Temp Pulse Resp BP Pulse Ox 97.7 F 69 17 111/55 L 100 09/21/17 07:11 09/21/17 07:11 09/21/17 07:11 09/21/17 07:11 09/21/17 07:11 Intake & Output 09/20/17 09/21/17 09/22/17 06:59 06:59 06:59 Intake Total 492 1431 Output Total 425 Balance 492 1006 Weight 57.1 kg 59.3 kg General appearance: PRESENT: no acute distress, well-developed, well-nourished Head exam: PRESENT: atraumatic, normocephalic Eye exam: PRESENT: conjunctiva pink, EOMI, PERRLA. ABSENT: scleral icterus Ear exam: PRESENT: normal external ear exam Mouth exam: PRESENT: moist, tongue midline Neck exam: ABSENT: carotid bruit, JVD, lymphadenopathy, thyromegaly Respiratory exam: PRESENT: clear to auscultation kris. ABSENT: rales, rhonchi, wheezes Cardiovascular exam: PRESENT: RRR. ABSENT: diastolic murmur, rubs, systolic murmur Pulses: PRESENT: normal dorsalis pedis pul Vascular exam: PRESENT: normal capillary refill GI/Abdominal exam: PRESENT: normal bowel sounds, soft. ABSENT: distended, guarding, mass, organolmegaly, rebound, tenderness Rectal exam: PRESENT: deferred Extremities exam: PRESENT: full ROM. ABSENT: calf tenderness, clubbing, pedal edema Neurological exam: PRESENT: alert, awake, oriented to person, oriented to place , oriented to time, oriented to situation, CN II-XII grossly intact. ABSENT: motor sensory deficit Psychiatric exam: PRESENT: appropriate affect, normal mood. ABSENT: homicidal ideation, suicidal ideation Skin exam: PRESENT: dry, intact, warm. ABSENT: cyanosis, rash Results Laboratory Results: 09/21/17 03:27 09/20/17 05:12 09/21/17 03:27 WBC 21.9 H D RBC 3.33 L Hgb 10.3 L Hct 30.8 L MCV 93 MCH 30.9 MCHC 33.3 RDW 14.9 H Plt Count 68 L D Seg Neutrophils % Not Reportable Lymphocytes % Not Reportable Monocytes % Not Reportable Eosinophils % Not Reportable Basophils % Not Reportable Absolute Neutrophils Not Reportable Absolute Lymphocytes Not Reportable Absolute Monocytes Not Reportable Absolute Eosinophils Not Reportable Absolute Basophils Not Reportable Impressions: Chest X-Ray 09/20/17 00:00 IMPRESSION: Congestive heart failure. Assessment & Plan - Diagnosis (1) Acute ITP Is this a current diagnosis for this admission?: Yes Plan: Platelet count is improved today to 68, from a hematologic standpoint, patient seems ready for DC. Have asked hospitalist team to look at patient in terms of blood glucose levels as well as CHF, to see if he is appropriate for discharge based upon that. He will need to be on prednisone 60 mg daily for 1-2 more weeks, he would like his platelet count normalized to prior levels, and then we can begin tapering the steroid office quickly as possible. But he will need a 3 -4 week taper. - Time Anticipated discharge: Home Within: within 24 hours
[2017-09-21] MEDS: BUMETANIDE 1 MG TABLET PO SCH (09:17)
[2017-09-21] MEDS: ISOSORBIDE MONONITRATE 60 MG TAB.ER.24H PO SCH (09:18)
[2017-09-21] MEDS: LISINOPRIL 10 MG TABLET PO SCH (09:18)
[2017-09-21] MEDS: LOSARTAN POTASSIUM 25 MG TABLET PO SCH (09:18)
[2017-09-21] MEDS: AMLODIPINE BESYLATE 5 MG TABLET PO SCH (09:18)
[2017-09-21] MEDS: GLIPIZIDE 5 MG TABLET PO SCH ×2 (09:24→17:08)
[2017-09-21] MEDS: FINASTERIDE 5 MG TABLET PO SCH (09:25)
[2017-09-21] MEDS: DOCUSATE SODIUM 100 MG CAPSULE PO SCH (09:25)
[2017-09-21] MEDS: MULTIVITAMIN TABLET PO SCH (09:25)
[2017-09-21] MEDS: PREDNISONE 20 MG TABLET PO SCH (09:25)
[2017-09-21] MEDS: METFORMIN HCL 500 MG TABLET PO SCH ×2 (09:25→17:09)
[2017-09-21] MEDS: FLUTICASONE/SALMETEROL DISKUS 250-50 MCG/DOSE IH SCH ×2 (09:26→21:12)
[2017-09-21] MEDS: INSULIN GLARGINE,HUM.REC.ANLOG 300 UNIT/3 ML INSULN.PEN SUBCUT SCH (10:41)
[2017-09-21] MEDS: METOPROLOL SUCCINATE 50 MG TAB.SR.24H PO SCH (16:09)
--- NOTE | 2017-09-21 17:07 | PDOC PROGRESS REPORT ---
Subjective Progress Note for:: 09/21/17 Subjective:: Patient c/o feeling dizzy and weak today when he got up to walk. There was no associated nausea or vomiting or chest pain Reason For Visit: THROMBOCYTOPENIA Physical Exam Vital Signs: Temp Pulse Resp BP Pulse Ox 97.4 F 66 18 125/48 L 99 09/21/17 15:04 09/21/17 15:04 09/21/17 15:04 09/21/17 15:04 09/21/17 15:04 Intake & Output 09/20/17 09/21/17 09/22/17 06:59 06:59 06:59 Intake Total 492 1431 975 Output Total 425 Balance 492 1006 975 Weight 57.1 kg 59.3 kg General appearance: PRESENT: no acute distress, other Head exam: PRESENT: atraumatic, normocephalic Eye exam: PRESENT: conjunctiva pink, PERRLA. ABSENT: scleral icterus Mouth exam: PRESENT: moist, tongue midline Neck exam: ABSENT: carotid bruit, JVD, lymphadenopathy, thyromegaly Respiratory exam: PRESENT: clear to auscultation kris. ABSENT: rales, rhonchi, wheezes Cardiovascular exam: PRESENT: RRR, +S1, +S2. ABSENT: diastolic murmur, rubs, systolic murmur Pulses: PRESENT: normal dorsalis pedis pul Vascular exam: PRESENT: normal capillary refill GI/Abdominal exam: PRESENT: normal bowel sounds, soft. ABSENT: distended, guarding, mass, organolmegaly, rebound, tenderness Rectal exam: PRESENT: deferred Extremities exam: PRESENT: full ROM. ABSENT: calf tenderness, clubbing, pedal edema Neurological exam: PRESENT: alert, awake, oriented to person, oriented to place , oriented to time, oriented to situation, CN II-XII grossly intact. ABSENT: motor sensory deficit Psychiatric exam: PRESENT: appropriate affect. ABSENT: homicidal ideation, suicidal ideation Skin exam: PRESENT: dry, intact, petechiae, warm. ABSENT: cyanosis Results Laboratory Results: 09/21/17 03:27 09/20/17 05:12 09/21/17 03:27 WBC 21.9 H D RBC 3.33 L Hgb 10.3 L Hct 30.8 L MCV 93 MCH 30.9 MCHC 33.3 RDW 14.9 H Plt Count 68 L D Seg Neutrophils % Not Reportable Lymphocytes % Not Reportable Monocytes % Not Reportable Eosinophils % Not Reportable Basophils % Not Reportable Absolute Neutrophils Not Reportable Absolute Lymphocytes Not Reportable Absolute Monocytes Not Reportable Absolute Eosinophils Not Reportable Absolute Basophils Not Reportable 09/19/17 18:10 Clean Catch Midstream Urine Culture - Final Escherichia Coli Impressions: Chest X-Ray 09/20/17 00:00 IMPRESSION: Congestive heart failure. Assessment & Plan - Diagnosis (1) Thrombocytopenia Is this a current diagnosis for this admission?: Yes (2) Cardiac pacemaker in situ Is this a current diagnosis for this admission?: Yes (3) CAD (coronary artery disease) Qualifiers: Coronary Disease-Associated Artery/Lesion type: unspecified vessel or lesion type Associated angina: with unspecified angina Is this a current diagnosis for this admission?: Yes (4) CHF (congestive heart failure) Qualifiers: Heart failure type: diastolic Heart failure chronicity: acute on chronic Qualified Code(s): I50.33 - Acute on chronic diastolic (congestive) heart failure Is this a current diagnosis for this admission?: Yes - Time Time Spent with patient: 15-24 minutes Medications reviewed and adjusted accordingly: Yes Anticipated discharge: Home Within: within 24 hours - Inpatient Certification Based on my medical assessment, after consideration of the patient's comorbidities, presenting symptoms, or acuity I expect that the services needed warrant INPATIENT care.: Yes Medical Necessity: Need For Continuous Telemetry Monitoring, Risk of Complication if Not Cared For in Hospital - Plan Summary Plan Summary: 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 [place] [address]. There remains no evidence of any bleeding. Continue steroids on discharge Antiplatelets currently on hold. 2. Chronic congestive heart failure patient is euvolemic 3. Chronic respiratory failure on home oxygen will continue on 2 L of oxygen 4. Stable COPD 5. Type 2 diabetes mellitus which will probably be worsened with need for long- term steroid. Patient has been placed on sliding scale insulin and will place him on insulin basal as needed. He has received education on self insulin injection. 6. Patient apparently had a 2D echo recently which shows normal LVEF. He is also on CPAP. 7. Dizziness in this 82 yo. Will monitor overnight and obtain PT consult in am
[2017-09-21] MEDS: LEVOFLOXACIN 500 MG/D5W RTU 500 MG/100 ML RTUPB IV SCH (17:09)
--- NOTE | 2017-09-21 18:45 | PDOC PROGRESS REPORT ---
Subjective Progress Note for:: 09/21/17 Subjective:: Requested to be seen by the oncologist. Patient was seen in my office, September 18, 2017, by my physician commercial lines account assistant, who sent patient to the emergency room because of low platelets. Complete blood count was ordered because of findings of PTT. Patient has noted some shortness of breath and occasional wheezing. Patient has also not been feeling well in a nonspecific term. Had noted some trouble walking. He is also been losing weight. Patient had also noted some swelling in his ankles. Patient seen on rounds on September 21, his platelet count has significantly improved since admission. Patient has some intermittent dizziness. Telemetry strips reviewed showed no significant tachy arrhythmia or bradycardia arrhythmia. Reason For Visit: THROMBOCYTOPENIA Physical Exam Vital Signs: Temp Pulse Resp BP Pulse Ox 97.4 F 66 18 125/48 L 99 09/21/17 15:04 09/21/17 15:04 09/21/17 15:04 09/21/17 15:04 09/21/17 15:04 Intake & Output 09/20/17 09/21/17 09/22/17 06:59 06:59 06:59 Intake Total 492 1431 975 Output Total 425 Balance 492 1006 975 Weight 57.1 kg 59.3 kg Exam: GENERAL: well-nourished and in no acute distress. Alert and oriented x3 HEAD: Atraumatic, normocephalic. EYES: Pupils equal round and reactive to light, extraocular movements intact, sclera anicteric, conjunctiva are normal. ENT: TMs normal, nares patent, oropharynx clear without exudates. Moist mucous membranes. No oral ulcerations or bleeding gums noted NECK: supple without lymphadenopathy. Trachea is central. No cervical or axillary lymphadenopathy noted. Carotids are 2+, JVD WNL LUNGS: Respiration seems nonlabored, no significant accessory muscle action noted. Breath sounds clear to auscultation bilaterally and equal noted. No wheezes rales or rhonchi noted. No significant dullness noted on percussion. CHEST: Palpation of the chest wall shows no significant chest wall tenderness. HEART: [place] [employer], No PSH, 1/6 SHIRLEY aortic area, 1/6 cannon systolic murmur mitral area, no rubs, no gallops. ABDOMEN: Soft, no significant tenderness appreciated, normoactive bowel sounds. No guarding, no rebound. No rigidity noted . No masses appreciated. EXTREMITIES: Pedal pulses are 1-2+, no calf tenderness noted. No clubbing or cyanosis. negative pedal edema noted NEUROLOGICAL: Focused neurological exam showed no significant neurologic deficit. Normal speech, no focal weakness appreciated. PSYCH: Normal mood, normal affect. Judgment and insight within normal limits. SKIN: No significant ecchymosis, skin is noted to be warm. MUSCULOSKELETAL EXAM: No significant acute joint swelling noted. Results Laboratory Results: 09/21/17 03:27 09/20/17 05:12 09/21/17 03:27 WBC 21.9 H D RBC 3.33 L Hgb 10.3 L Hct 30.8 L MCV 93 MCH 30.9 MCHC 33.3 RDW 14.9 H Plt Count 68 L D Seg Neutrophils % Not Reportable Lymphocytes % Not Reportable Monocytes % Not Reportable Eosinophils % Not Reportable Basophils % Not Reportable Absolute Neutrophils Not Reportable Absolute Lymphocytes Not Reportable Absolute Monocytes Not Reportable Absolute Eosinophils Not Reportable Absolute Basophils Not Reportable 09/19/17 18:10 Clean Catch Midstream Urine Culture - Final Escherichia Coli EKG Comments: Telemetry shows ventricular paced rhythm. Impressions: Chest X-Ray 09/20/17 00:00 IMPRESSION: Congestive heart failure. Assessment & Plan - Diagnosis (1) Acute ITP Is this a current diagnosis for this admission?: Yes (2) CAD (coronary artery disease) Qualifiers: Coronary Disease-Associated Artery/Lesion type: unspecified vessel or lesion type Associated angina: with unspecified angina Is this a current diagnosis for this admission?: Yes (3) CHF (congestive heart failure) Qualifiers: Heart failure type: diastolic Heart failure chronicity: acute on chronic Qualified Code(s): I50.33 - Acute on chronic diastolic (congestive) heart failure Is this a current diagnosis for this admission?: Yes (4) COPD (chronic obstructive pulmonary disease) Qualifiers: Emphysema type: unspecified Is this a current diagnosis for this admission?: Yes (5) Cardiac pacemaker in situ Is this a current diagnosis for this admission?: Yes (6) Diabetes Qualifiers: Diabetes mellitus type: type 2 Diabetes mellitus custodial insulin use: without custodial use Diabetes mellitus complication status: with unspecified complications Qualified Code(s): E11.8 - Type 2 diabetes mellitus with unspecified complications Is this a current diagnosis for this admission?: Yes (7) Dyspnea Qualifiers: Dyspnea type: dyspnea on exertion Qualified Code(s): R06.09 - Other forms of dyspnea Is this a current diagnosis for this admission?: Yes - Notes Notes: Patient has shown progressive improvement in platelet count. Patient is noted to be dizzy. This is intermittent and probably related to general debility. No significant cardiac dysrhythmia noted on review of cardiac monitoring. Will consider checking orthostatic blood pressure. Patient is asking me if he can be discharged. I told him that we will discuss with hospitalist. Will also need to discuss this with oncologist managing thrombocytopenia. Acute ITP: This was the reason for patient's admission. Patient did respond to IV Solu-Medrol with platelet count improving. Currently will hold antiplatelets unless platelet count over 100,000. CAD: Symptomatically stable without any angina. Congestive heart failure: Recommend resume home diuretic therapy. COPD: Patient seems to have significant COPD. He is on home oxygen at 2 L. Recommend reinstituting that. Diabetes: We will leave management to the hospitalist. Dyspnea: Possibly combination of COPD and possible diastolic CHF. Patient did have recent nuclear stress test in May which was noted to be negative. A 2D echo had shown normal LVEF. Recommend oxygen supplementation. Sleep apnea syndrome: Patient to use nightly CPAP and oxygen to be added in line to CPAP. - Time Time with patient: Greater than 35 minutes - CODE STATUS was discussed, patient remains full code. Surrogate decision-maker unchanged. Multiple medical problems were addressed. More than 50% of the time spent coordinating care, discussing management plans with involved caregivers. Management plans discussed with involved personnels. Medical decision making was of moderate to high complexity, patient's has multiple comorbidities. Medications reviewed and adjusted accordingly: Yes
[2017-09-21] MEDS: SIMVASTATIN 10 MG TABLET PO SCH (21:59)
[2017-09-22 06:18] LABS: HEMATOCRIT 32.3 % (37.9-51.0); HEMOGLOBIN 10.8 g/dL (13.5-17.0); MEAN CORPUSCULAR HEMOGLOBIN 31.2 pg (27.0-33.4); MEAN CORPUSCULAR HGB CONC 33.5 g/dL (32.0-36.0); MEAN CORPUSCULAR VOLUME 93 fl (80-97); PLATELET COUNT 112 10^3/uL (150-450); RED BLOOD COUNT 3.47 10^6/uL (4.35-5.55)
[2017-09-22 06:25] LABS: ANION GAP 12 (5-19); BLOOD UREA NITROGEN 29 mg/dL (7-20); CALCIUM 9.7 mg/dL (8.4-10.2); CARBON DIOXIDE 28 mmol/L (22-30); CHLORIDE 99 mmol/L (98-107); GLUCOSE 140 mg/dL (75-110); POTASSIUM 4.8 mmol/L (3.6-5.0); SODIUM 138.5 mmol/L (137-145)
[2017-09-22] MEDS: LANSOPRAZOLE 30 MG TAB.RAP.DR PO SCH (06:28)
[2017-09-22] MEDS: LEVOTHYROXINE SODIUM 0.025 MG TABLET PO SCH (06:28)
[2017-09-22 07:51] LABS: ABSOLUTE LYMPHOCYTES# (MANUAL) 0.3 10^3/uL (0.5-4.7); ABSOLUTE MONOCYTES # (MANUAL) 0.5 10^3/uL (0.1-1.4); ABSOLUTE NEUTROPHILS# (MANUAL) 14.3 10^3/uL (1.7-8.2); BASOPHILS % (MANUAL) 0 % (0-2); EOSINOPHILS % (MANUAL) 0 % (0-6); HYPOCHROMASIA SLIGHT; LYMPHOCYTES % (MANUAL) 2 % (13-45); MONOCYTES % (MANUAL) 3 % (3-13); PLATELET COMMENT DECREASED; POLYCHROMASIA SLIGHT; SEGMENTED NEUTROPHILS % (MAN) 95 % (42-78); TOTAL CELLS COUNTED 100; TOXIC GRANULATION SLIGHT
--- NOTE | 2017-09-22 08:46 | PDOC PROGRESS REPORT ---
Subjective Progress Note for:: 09/22/17 Subjective:: No acute events overnight, patient feels better today, platelet counts is improved to 112. Reason For Visit: THROMBOCYTOPENIA Physical Exam Vital Signs: Temp Pulse Resp BP Pulse Ox 97.7 F 60 17 117/43 L 99 09/22/17 07:21 09/22/17 07:21 09/22/17 07:21 09/22/17 07:21 09/22/17 07:21 Intake & Output 09/21/17 09/22/17 09/23/17 06:59 06:59 06:59 Intake Total 1431 1974 Output Total 425 Balance 1006 1974 Weight 59.3 kg 60.2 kg General appearance: PRESENT: no acute distress, well-developed, well-nourished Head exam: PRESENT: atraumatic, normocephalic Eye exam: PRESENT: conjunctiva pink, EOMI, PERRLA. ABSENT: scleral icterus Ear exam: PRESENT: normal external ear exam Mouth exam: PRESENT: moist, tongue midline Neck exam: ABSENT: carotid bruit, JVD, lymphadenopathy, thyromegaly Respiratory exam: PRESENT: clear to auscultation kris. ABSENT: rales, rhonchi, wheezes Cardiovascular exam: PRESENT: RRR. ABSENT: diastolic murmur, rubs, systolic murmur Pulses: PRESENT: normal dorsalis pedis pul Vascular exam: PRESENT: normal capillary refill GI/Abdominal exam: PRESENT: normal bowel sounds, soft. ABSENT: distended, guarding, mass, organolmegaly, rebound, tenderness Rectal exam: PRESENT: deferred Extremities exam: PRESENT: full ROM. ABSENT: calf tenderness, clubbing, pedal edema Neurological exam: PRESENT: alert, awake, oriented to person, oriented to place , oriented to time, oriented to situation, CN II-XII grossly intact. ABSENT: motor sensory deficit Psychiatric exam: PRESENT: appropriate affect, normal mood. ABSENT: homicidal ideation, suicidal ideation Skin exam: PRESENT: dry, intact, warm. ABSENT: cyanosis, rash Results Laboratory Results: 09/22/17 04:51 09/22/17 04:51 09/22/17 09/22/17 04:51 04:51 WBC 15.0 H RBC 3.47 L Hgb 10.8 L Hct 32.3 L MCV 93 MCH 31.2 MCHC 33.5 RDW 15.0 H Plt Count 112 L Seg Neutrophils % Not Reportable Lymphocytes % Not Reportable Monocytes % Not Reportable Eosinophils % Not Reportable Basophils % Not Reportable Absolute Neutrophils Not Reportable Absolute Lymphocytes Not Reportable Absolute Monocytes Not Reportable Absolute Eosinophils Not Reportable Absolute Basophils Not Reportable Sodium 138.5 Potassium 4.8 Chloride 99 Carbon Dioxide 28 Anion Gap 12 BUN 29 H Creatinine 0.87 Est GFR ( Amer) > 60 Est GFR (Non-Af Amer) > 60 Glucose 140 H Calcium 9.7 09/19/17 18:10 Clean Catch Midstream Urine Culture - Final Escherichia Coli Impressions: Chest X-Ray 09/20/17 00:00 IMPRESSION: Congestive heart failure. Assessment & Plan - Diagnosis (1) Acute ITP Is this a current diagnosis for this admission?: Yes Plan: Continue with prednisone 60 mg daily, from a hematologic standpoint he can be discharged today. I discussed this case with his PCP Dr. Tilley. Discussed his case with hospitalist team as well. Spent greater than 35 minutes in discussion and coordination of care. We will see us next week and begin tapering the prednisone thereafter as long as his counts fully recover. - Time Time Spent with patient: 35 or more minutes
[2017-09-22] MEDS: FLUTICASONE/SALMETEROL DISKUS 250-50 MCG/DOSE IH SCH (09:06)
[2017-09-22] MEDS: BUMETANIDE 1 MG TABLET PO SCH (09:06)
[2017-09-22] MEDS: DOCUSATE SODIUM 100 MG CAPSULE PO SCH (09:07)
[2017-09-22] MEDS: METFORMIN HCL 500 MG TABLET PO SCH (09:07)
[2017-09-22] MEDS: MULTIVITAMIN TABLET PO SCH (09:07)
[2017-09-22] MEDS: PREDNISONE 20 MG TABLET PO SCH (09:07)
[2017-09-22] MEDS: GLIPIZIDE 5 MG TABLET PO SCH (09:08)
[2017-09-22] MEDS: FINASTERIDE 5 MG TABLET PO SCH (09:08)
[2017-09-22] MEDS: ISOSORBIDE MONONITRATE 60 MG TAB.ER.24H PO SCH (09:09)
[2017-09-22] MEDS: AMLODIPINE BESYLATE 5 MG TABLET PO SCH (09:09)
[2017-09-22] MEDS: INSULIN GLARGINE,HUM.REC.ANLOG 300 UNIT/3 ML INSULN.PEN SUBCUT SCH (09:09)
[2017-09-22] MEDS: METOPROLOL SUCCINATE 50 MG TAB.SR.24H PO SCH (09:10)
[2017-09-22] MEDS: LISINOPRIL 10 MG TABLET PO SCH (09:10)
[2017-09-22] MEDS: LOSARTAN POTASSIUM 25 MG TABLET PO SCH (09:25)
[2017-09-22 12:12] VITALS: BP 132/47
[2017-09-22] MEDS ORDERED: LEVOFLOXACIN 500 MG TABLET PO SCH (18:00)
--- NOTE | 2017-09-22 19:18 | PDOC DISCHARGE SUMMARY ---
General - Admit/Disc Date/PCP Admission Date/Primary Care Provider: 09/19/17 15:36 ULI FRIED Discharge Date: 09/22/17 - Discharge Diagnosis (1) Acute ITP Is this a current diagnosis for this admission?: Yes - Additional Information Resuscitation Status: Full Code Discharge Diet: As Tolerated Discharge Activity: Activity As Tolerated Prescriptions: Levofloxacin [Levaquin 500 mg Tablet] 500 mg PO QPM 4 Days #4 tablet Prednisone [Deltasone 20 mg Tablet] 60 mg PO DAILY #60 tablet Home Medications: Albuterol Sulfate [Proair HFA Inhalation Aerosol 8.5 gm MDI] 2 puff IH Q4HP PRN 05/15/17 Finasteride [Proscar 5 mg Tablet] 5 mg PO DAILY 05/15/17 Glipizide [Glucotrol 5 mg Tablet] 2.5 mg PO BID 05/15/17 Levothyroxine Sodium [Synthroid 0.025 mg Tablet] 0.025 mg PO Q6AM 05/15/17 Metformin HCl [Glucophage 500 mg Tablet] 500 mg PO BID 05/15/17 Simvastatin 10 mg PO QHS 05/15/17 Amlodipine Besylate [Norvasc 5 mg Tablet] 5 mg PO DAILY 09/19/17 Losartan Potassium 25 mg PO DAILY 09/19/17 Aspirin [Aspirin EC] 81 mg PO DAILY 09/20/17 Fluticasone/Salmeterol [Advair 250-50 Diskus 14 Dose/Diskus] 1 inh IH DAILY 01/26 Furosemide [Lasix 40 mg Tablet] 40 mg PO QAM 09/20/17 Isosorbide Mononitrate [Isosorbide Mononitrate ER] 30 mg PO QAM 09/20/17 Metoprolol Tartrate [Lopressor 50 mg Tablet] 50 mg PO Q12H 09/20/17 Multivit-Mins/Iron/Folic/Lycop [Centrum Men's Tablet] 1 each PO DAILY 09/20/17 Prednisone [Deltasone 20 mg Tablet] 60 mg PO DAILY #60 tablet 09/21/17 Levofloxacin [Levaquin 500 mg Tablet] 500 mg PO QPM 4 Days #4 tablet 09/22/17 History of Present Illness History of Present Illness: Patient stressed to the emergency room with complaints of abnormal lab results was found to have the platelet count of 9000. Patient does give a history of present hematuria although he said is mild and he has no record. There is no gingival bleeding, no hematemesis or hematochezia on no bleeding from anywhere else. Patient does give a history of bruising easily however this is chronic. His platelet count just about 4 months ago was within normal. This was 1 73, 000 however further review shows that patient has had thrombocytopenia since May 2017 when his white count went down as low as 99,000 and then subsequently went up to 1 73,000. He also noted some rash on his lower extremities. Hemoglobin has remained fairly stable and there is no azotemia urinalysis does show a small amount of blood as well as large leukocyte esterase Hospital Course Hospital Course: Mr. Potter was admitted for severe thrombocytopenia. He was initially noted to have a platelet of 6000. Oncology was consulted and patient was deemed to have acute ITP. He was started initially on IV steroids. This was switched to oral steroids. His platelet readily recovered and improved. Yesterday his platelet improved up to 64,000 and this further went up today to 112,000. Patient was cleared by oncology for discharge. He will be discharged on prednisone for 7 more days and he will follow-up with Dr. Ferrer on outpatient basis. Patient did have some hematuria and urinalysis that showed urinary tract infection. He was started on Levaquin and will be discharged on 4 more days of Levaquin. Physical Exam Vital Signs: Temp Pulse Resp BP Pulse Ox 97.7 F 60 17 121/43 L 99 09/22/17 11:45 09/22/17 11:45 09/22/17 11:45 09/22/17 11:45 09/22/17 11:45 Intake & Output 09/21/17 09/22/17 09/23/17 06:59 06:59 06:59 Intake Total 1431 1974 Output Total 425 Balance 1006 1974 Weight 130 lb 11.746 oz 132 lb 11.492 oz General appearance: PRESENT: no acute distress, well-developed, well-nourished Head exam: PRESENT: atraumatic, normocephalic Eye exam: PRESENT: conjunctiva pink, EOMI, PERRLA. ABSENT: scleral icterus Ear exam: PRESENT: normal external ear exam Neck exam: ABSENT: carotid bruit, JVD, lymphadenopathy, thyromegaly Respiratory exam: PRESENT: clear to auscultation kris. ABSENT: rales, rhonchi, wheezes Cardiovascular exam: PRESENT: RRR. ABSENT: diastolic murmur, rubs, systolic murmur Pulses: PRESENT: normal dorsalis pedis pul GI/Abdominal exam: PRESENT: normal bowel sounds, soft. ABSENT: distended, guarding, mass, organolmegaly, rebound, tenderness Results Laboratory Results: 09/22/17 04:51 09/22/17 04:51 09/22/17 09/22/17 04:51 04:51 WBC 15.0 H RBC 3.47 L Hgb 10.8 L Hct 32.3 L MCV 93 MCH 31.2 MCHC 33.5 RDW 15.0 H Plt Count 112 L Seg Neutrophils % Not Reportable Lymphocytes % Not Reportable Monocytes % Not Reportable Eosinophils % Not Reportable Basophils % Not Reportable Absolute Neutrophils Not Reportable Absolute Lymphocytes Not Reportable Absolute Monocytes Not Reportable Absolute Eosinophils Not Reportable Absolute Basophils Not Reportable Sodium 138.5 Potassium 4.8 Chloride 99 Carbon Dioxide 28 Anion Gap 12 BUN 29 H Creatinine 0.87 Est GFR ( Amer) > 60 Est GFR (Non-Af Amer) > 60 Glucose 140 H Calcium 9.7 Impressions: Chest X-Ray 09/20/17 00:00 IMPRESSION: Congestive heart failure. Qualifiers - * PATIENT BEING DISCHARGED WITH ANY OF THE FOLLOWING DIAGNOSIS: No VTE patient discharged on overlapping Therapy?: Yes
--- NOTE | 2017-09-22 20:21 | PDOC PROGRESS REPORT ---
Subjective Progress Note for:: 09/22/17 Subjective:: Patient today much improved. His platelet count is over 100,000. Should be able to resume antiplatelet therapy. Will be happy to reduce prednisone as an outpatient if needed. Patient however does have follow-up with oncologist. Patient does have some chronic shortness of breath and some dizziness but denied any worsening. Patient denied any syncope or near syncope. Patient did ask for a note to be off work which was provided to the patient. Reason For Visit: THROMBOCYTOPENIA Physical Exam Vital Signs: Temp Pulse Resp BP Pulse Ox 97.7 F 60 17 121/43 L 99 09/22/17 11:45 09/22/17 11:45 09/22/17 11:45 09/22/17 11:45 09/22/17 11:45 Intake & Output 09/21/17 09/22/17 09/23/17 06:59 06:59 06:59 Intake Total 1431 1974 Output Total 425 Balance 1006 1974 Weight 59.3 kg 60.2 kg Exam: GENERAL: well-nourished and in no acute distress. Alert and oriented x3 HEAD: Atraumatic, normocephalic. EYES: Pupils equal round and reactive to light, extraocular movements intact, sclera anicteric, conjunctiva are normal. ENT: TMs normal, nares patent, oropharynx clear without exudates. Moist mucous membranes. No oral ulcerations or bleeding gums noted NECK: supple without lymphadenopathy. Trachea is central. No cervical or axillary lymphadenopathy noted. Carotids are 2+, JVD WNL LUNGS: Respiration seems nonlabored, no significant accessory muscle action noted. Breath sounds clear to auscultation bilaterally and equal noted. No wheezes rales or rhonchi noted. No significant dullness noted on percussion. CHEST: Palpation of the chest wall shows no significant chest wall tenderness. 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 ABDOMEN: Soft, no significant tenderness appreciated, normoactive bowel sounds. No guarding, no rebound. No rigidity noted . No masses appreciated. EXTREMITIES: Pedal pulses are 1-2+, no calf tenderness noted. No clubbing or cyanosis. negative pedal edema noted NEUROLOGICAL: Focused neurological exam showed no significant neurologic deficit. Normal speech, no focal weakness appreciated. PSYCH: Normal mood, normal affect. Judgment and insight within normal limits. SKIN: No significant ecchymosis, skin is noted to be warm. MUSCULOSKELETAL EXAM: No significant acute joint swelling noted. Results Laboratory Results: 09/22/17 04:51 09/22/17 04:51 09/22/17 09/22/17 04:51 04:51 WBC 15.0 H RBC 3.47 L Hgb 10.8 L Hct 32.3 L MCV 93 MCH 31.2 MCHC 33.5 RDW 15.0 H Plt Count 112 L Seg Neutrophils % Not Reportable Lymphocytes % Not Reportable Monocytes % Not Reportable Eosinophils % Not Reportable Basophils % Not Reportable Absolute Neutrophils Not Reportable Absolute Lymphocytes Not Reportable Absolute Monocytes Not Reportable Absolute Eosinophils Not Reportable Absolute Basophils Not Reportable Sodium 138.5 Potassium 4.8 Chloride 99 Carbon Dioxide 28 Anion Gap 12 BUN 29 H Creatinine 0.87 Est GFR ( Amer) > 60 Est GFR (Non-Af Amer) > 60 Glucose 140 H Calcium 9.7 EKG Comments: Showed regular ventricular paced rhythm. Impressions: Chest X-Ray 09/20/17 00:00 IMPRESSION: Congestive heart failure. Assessment & Plan - Diagnosis (1) Acute ITP Is this a current diagnosis for this admission?: Yes (2) CAD (coronary artery disease) Qualifiers: Coronary Disease-Associated Artery/Lesion type: unspecified vessel or lesion type Associated angina: with unspecified angina Is this a current diagnosis for this admission?: Yes (3) CHF (congestive heart failure) Qualifiers: Heart failure type: diastolic Heart failure chronicity: acute on chronic Qualified Code(s): I50.33 - Acute on chronic diastolic (congestive) heart failure Is this a current diagnosis for this admission?: Yes (4) COPD (chronic obstructive pulmonary disease) Qualifiers: Emphysema type: unspecified Is this a current diagnosis for this admission?: Yes (5) Cardiac pacemaker in situ Is this a current diagnosis for this admission?: Yes (6) Diabetes Qualifiers: Diabetes mellitus type: type 2 Diabetes mellitus jail insulin use: without jail use Diabetes mellitus complication status: with unspecified complications Qualified Code(s): E11.8 - Type 2 diabetes mellitus with unspecified complications Is this a current diagnosis for this admission?: Yes (7) Dyspnea Qualifiers: Dyspnea type: dyspnea on exertion Qualified Code(s): R06.09 - Other forms of dyspnea Is this a current diagnosis for this admission?: Yes - Notes Notes: Patient's platelet count is over 100,000. Patient claims to be much improved. He can be discharged with close cardiology and medical follow-up. Acute ITP: This was the reason for patient's admission. Currently on steroid therapy. Could restart antiplatelet therapy. CAD: Symptomatically stable without any angina. Congestive heart failure: Recommend resume home diuretic therapy. COPD: Patient seems to have significant COPD. He is on home oxygen at 2 L. Recommend reinstituting that. Diabetes: We will leave management to the hospitalist. Dyspnea: Possibly combination of COPD and possible diastolic CHF. Patient did have recent nuclear stress test in May which was noted to be negative. A 2D echo had shown normal LVEF. Recommend oxygen supplementation. Sleep apnea syndrome: Patient to use nightly CPAP and oxygen to be added in line to CPAP. - Time Time with patient: 15-25 minutes - CODE STATUS was discussed, patient remains full code. Surrogate decision-maker unchanged. Multiple medical problems were addressed. More than 50% of the time spent coordinating care, discussing management plans with involved caregivers. Management plans discussed with involved personnels. Medical decision making was of moderate to high complexity , patient's has multiple comorbidities. Medications reviewed and adjusted accordingly: Yes
== END 2017-09-22 13:08 | disposition hospice, home (50) | DRG 813 ==
LOC: ER 12:23 → OBSVTOIN 15:36 → EH 15:36 → INTOOBSV 15:36 → 4N 16:47
PROVIDERS: ADMIT Internal Medicine; ATTEND Internal Medicine
PROC: 3E0F73Z Introduction of Anti-inflammatory into Respiratory Tract, Via Natural or Artificial Opening (ICD-10-PCS; principal; 2017-09-19)
DX: D69.3 Immune thrombocytopenic purpura (principal); I50.33 Acute on chronic diastolic (congestive) heart failure; J96.11 Chronic respiratory failure with hypoxia; I25.10 Atherosclerotic heart disease of native coronary artery without angina pectoris; E11.9 Type 2 diabetes mellitus without complications; E78.00 Pure hypercholesterolemia, unspecified; I11.0 Hypertensive heart disease with heart failure; R63.4 Abnormal weight loss; B96.20 Unspecified Escherichia coli [E. coli] as the cause of diseases classified elsewhere; Z68.22 Body mass index [BMI] 22.0-22.9, adult; I25.2 Old myocardial infarction; Z79.899 Other long term (current) drug therapy; Z79.52 Long term (current) use of systemic steroids; Z95.0 Presence of cardiac pacemaker; Z88.2 Allergy status to sulfonamides; Z83.3 Family history of diabetes mellitus; Z99.81 Dependence on supplemental oxygen
CPT/HCPCS: 36415; 71046; 80048; 80053; 81001; 82962; 85025; 87086; 87088; 87186; 94640; 99284; G0378; G8978-GP; G8979-GP; G8980-GP; J1815; J1956; J2930; J3490; J7512; J7620

== ENCOUNTER 2019-10-07 10:35 | Inpatient (IN) | payer MEDICARE, BC ==
--- NOTE | 2019-10-07 11:07 | ER Document Report ---
ED Medical Screen (RME) - General Stated Complaint: BODY SWELLING Time Seen by Provider: 10/07/19 11:01 Primary Care Provider: ULI FRIED MD [Primary Care Provider] - Follow up as needed Mode of Arrival: Ambulatory Information source: Patient Notes: Patient presents complaining of bilateral lower extremity swelling and shortness of breath. Patient reports a 12 pound weight gain over the past week. Patient states that he was recently treated for UTI and is still taking antibiotics. Patient complains of swelling to the scrotal area and lower abdomen as well. Patient does complain of some lower abdominal tenderness. Patient with a history of CHF, CVA hypertension with a pacemaker. I have greeted and performed a rapid initial assessment of this patient. A comprehensive ED assessment and evaluation of the patient, analysis of test results and completion of the medical decision making process will be conducted by additional ED providers. TRAVEL OUTSIDE OF THE [place] IN LAST 30 DAYS: No - Related Data Allergies/Adverse Reactions: Sulfa (Sulfonamide Antibiotics) Allergy (Severe, Verified 09/20/17 13:00) Coma Past Medical History - Past Medical History Cardiac Medical History: Reports: Hx Congestive Heart Failure, Hx Heart Attack, Hx Hypercholesterolemia, Hx Hypertension Endocrine Medical History: Reports: Hx Diabetes Mellitus Type 2 Renal/ Medical History: Denies: Hx Peritoneal Dialysis Past Surgical History: Reports: Hx Cardiac Catheterization, Hx Pacemaker - Immunizations Hx Diphtheria, Pertussis, Tetanus Vaccination: Yes Physical Exam - Vital signs Vitals: Temp Pulse Resp BP Pulse Ox 97.7 F 84 24 H 134/51 H 94 10/07/19 10:39 10/07/19 10:39 10/07/19 10:39 10/07/19 10:39 10/07/19 10:39 - General General appearance: Alert In distress: None Notes: Patient with bilateral 3+ lower extremity edema, respirations unlabored Course - Vital Signs Vital signs: Temp Pulse Resp BP Pulse Ox 97.7 F 84 24 H 134/51 H 94 10/07/19 10:39 10/07/19 10:39 10/07/19 10:39 10/07/19 10:39 10/07/19 10:39 Doctor's Discharge - Discharge Referrals: ULI FRIED MD [Primary Care Provider] - Follow up as needed
[2019-10-07 11:35] LABS: ABSOLUTE BASOPHILS # (AUTO) 0.1 10^3/uL (0.0-0.2); ABSOLUTE EOSINOPHILS # (AUTO) 0.1 10^3/uL (0.0-0.6); ABSOLUTE LYMPHOCYTES (AUTO) 0.4 10^3/uL (0.5-4.7); ABSOLUTE MONOCYTES (AUTO) 0.5 10^3/uL (0.1-1.4); ABSOLUTE NEUT (AUTO) 5.7 10^3/uL (1.7-8.2); BASOPHILS % (AUTO) 1.1 % (0-2); EOSINOPHILS % (AUTO) 1.3 % (0-6); HEMATOCRIT 33.3 % (37.9-51.0); HEMOGLOBIN 11.4 g/dL (13.5-17.0); LYMPHOCYTES % (AUTO) 6.5 % (13-45); MEAN CORPUSCULAR HEMOGLOBIN 32.2 pg (27.0-33.4); MEAN CORPUSCULAR HGB CONC 34.2 g/dL (32.0-36.0); MEAN CORPUSCULAR VOLUME 94 fl (80-97); MONOCYTES % (AUTO) 6.7 % (3-13); PLATELET COUNT 205 10^3/uL (150-450); RED BLOOD COUNT 3.54 10^6/uL (4.35-5.55); RED CELL DISTRIBUTION WIDTH 14.3 % (11.5-14.0); SEGMENTED NEUTROPHILS % (AUTO) 84.4 % (42-78); TOTAL CELLS COUNTED % (AUTO) 100 %; WHITE BLOOD COUNT 6.7 10^3/uL (4.0-10.5)
[2019-10-07 11:40] LABS: APPEARANCE,URINE CLEAR; BILIRUBIN,URINE NEGATIVE (NEGATIVE); COLOR,URINE YELLOW; GLUCOSE, URINE NEGATIVE (NEGATIVE); KETONES,URINE NEGATIVE (NEGATIVE); LEUKOCYTE ESTERASE,URINE NEGATIVE (NEGATIVE); NITRITE,URINE NEGATIVE (NEGATIVE); PROTEIN,URINE NEGATIVE (NEGATIVE); UROBILINOGEN,URINE NEGATIVE mg/dL (<2.0)
[2019-10-07 11:51] LABS: ALKALINE PHOSPHATASE 81 U/L (38-126); ANION GAP 10 (5-19); ASPARTATE AMINO TRANSFERASE 31 U/L (17-59); BILIRUBIN,DIRECT 0.4 mg/dL (0.0-0.4); BILIRUBIN,TOTAL 0.6 mg/dL (0.2-1.3); BLOOD UREA NITROGEN 33 mg/dL (7-20); CALCIUM 9.1 mg/dL (8.4-10.2); CARBON DIOXIDE 28 mmol/L (22-30); CHLORIDE 100 mmol/L (98-107); GLUCOSE 112 mg/dL (75-110); POTASSIUM 4.4 mmol/L (3.6-5.0); TOTAL PROTEIN 6.7 g/dL (6.3-8.2)
[2019-10-07 12:03] LABS: TROPONIN I 0.023 ng/mL
[2019-10-07] MEDS ORDERED: FUROSEMIDE INJ/PF 20 MG/2 ML SDV IV ONE (12:36)
--- NOTE | 2019-10-07 12:50 | RADIOLOGY REPORT (SQ) ---
EXAM DESCRIPTION: CHEST SINGLE VIEW IMAGES COMPLETED DATE/TIME: 10/07/2019 12:39 pm REASON FOR STUDY: sob COMPARISON: 09/20/2017 EXAM PARAMETERS: NUMBER OF VIEWS: One view. TECHNIQUE: Single frontal radiographic view of the chest acquired. RADIATION DOSE: NA LIMITATIONS: None. FINDINGS: LUNGS AND PLEURA: Chronic pleural thickening in the lung bases. No acute infiltrate or ef fusion. MEDIASTINUM AND HILAR STRUCTURES: No masses. Contour normal. HEART AND VASCULAR STRUCTURES: Cardiomegaly. No pulmonary edema. BONES: No acute findings. HARDWARE: Sternotomy wires. Pacemaker. OTHER: No other significant finding. IMPRESSION: Chronic pleural thickening in the lung bases. Cardiomegaly without pulmonary edema. TECHNICAL DOCUMENTATION: JOB ID: [id number] 2010 [employer]- All Rights Reserved Reading location - IP/workstation name: [email or web address]
--- NOTE | 2019-10-07 13:00 | ER Document Report ---
Entered by GRADY PERAZA SCRIBE 10/07/19 1233 Acting as scribe for:JOHN MALHOTRA MD ED Extremity Problem, Lower - General Chief Complaint: Swelling of Lower Extremity Stated Complaint: BODY SWELLING Time Seen by Provider: 10/07/19 11:01 Primary Care Provider: ULI FRIED MD [ACTIVE STAFF] - Follow up as needed Mode of Arrival: Ambulatory Information source: Patient Notes: This 84 year old male patient presents to the emergency department today with complaints of bilateral leg swelling up to the level of his scrotum for about a week. He was put on a 7 day course of cipro on 09/26 and another 7 day course on 10/03, he was also put on a 10 day course of keflex on 10/02 all for a UTI. He does complain of shortness of breath. TRAVEL OUTSIDE OF THE [place] IN LAST 30 DAYS: No - Related Data Allergies/Adverse Reactions: Sulfa (Sulfonamide Antibiotics) Allergy (Severe, Verified 09/20/17 13:00) Coma Past Medical History - General Information source: Patient - Social History Smoking Status: Never Smoker Cigarette use (# per day): No Chew tobacco use (# tins/day): No Drug Abuse: None Lives with: Family Family History: Reviewed & Not Pertinent, DM - Past Medical History Cardiac Medical History: Reports: Hx Congestive Heart Failure, Hx Heart Attack, Hx Hypercholesterolemia, Hx Hypertension Endocrine Medical History: Reports: Hx Diabetes Mellitus Type 2 Past Surgical History: Reports: Hx Cardiac Catheterization, Hx Pacemaker - Immunizations Hx Diphtheria, Pertussis, Tetanus Vaccination: Yes Review of Systems - Review of Systems Constitutional: No symptoms reported EENT: No symptoms reported Cardiovascular: No symptoms reported Respiratory: See HPI, Short of breath Gastrointestinal: No symptoms reported Genitourinary: No symptoms reported Male Genitourinary: No symptoms reported Musculoskeletal: See HPI, Leg swelling, Ankle swelling Skin: No symptoms reported Hematologic/Lymphatic: No symptoms reported Neurological/Psychological: No symptoms reported -: Yes All other systems reviewed and negative Physical Exam - Vital signs Vitals: Temp Pulse Resp BP Pulse Ox 97.7 F 84 24 H 134/51 H 94 10/07/19 10:39 10/07/19 10:39 10/07/19 10:39 10/07/19 10:39 10/07/19 10:39 - Notes Notes: Physical Exam: General: Alert, appears uncomfortable. HEENT: Normocephalic. Atraumatic. PERRL. Extraocular movements intact. Oropharynx clear. Neck: Supple. Non-tender. There is some external jugular venous distention. Respiratory: No respiratory distress. Clear and equal breath sounds bilaterally. Cardiovascular: Regular rate and rhythm. Abdominal: Normal Inspection. Non-tender. No distension. Normal Bowel Sounds. Male genitourinary: Considerable edema of the scrotum and penis. Back: No gross abnormalities. Extremities: Moves all four extremities. Upper extremities: Normal inspection. Normal ROM. Lower extremities: Bilateral squishy edema in the feet, ankles, knees, and thighs. Neurological: Normal cognition. AAOx4. Normal speech. Psychological: Normal affect. Normal Mood. Skin: Warm. Dry. Normal color. Course - Re-evaluation Re-evalutation: 10/07/19 15:56 The patient has 1 week history of bilateral lower extremity edema and scrotal edema. His dimer is just over 2.0, his liver enzymes are normal suggesting this is not due to hepatic congestion, his CBC is normal, his CRP is slightly elevated, his albumin and protein are normal. The most recent lab work was 2 years ago at which time he had a creatinine less than 1 and it is elevated now. Unclear if the recent Cipro may be causing some of his increased creatinine. Will get bilateral venous Dopplers and the patient will be admitted to the hospitalist service. - Vital Signs Vital signs: Temp Pulse Resp BP Pulse Ox 97.7 F 84 24 H 134/51 H 94 10/07/19 10:39 10/07/19 10:39 10/07/19 10:39 10/07/19 10:39 10/07/19 10:39 - Laboratory Result Diagrams: 10/07/19 11:18 10/07/19 11:18 Laboratory results interpreted by me: 10/07/19 10/07/19 10/07/19 11:18 11:18 11:18 RBC 3.54 L Hgb 11.4 L Hct 33.3 L RDW 14.3 H Lymph % (Auto) 6.5 L Absolute Lymphs (auto) 0.4 L Seg Neutrophils % 84.4 H D-Dimer BUN 33 H Creatinine 1.57 H Est GFR ( Amer) 51 L Est GFR (MDRD) Non-Af 42 L Glucose 112 H C-Reactive Protein NT-Pro-B Natriuret Pep 5460 H 10/07/19 10/07/19 11:18 11:18 RBC Hgb Hct RDW Lymph % (Auto) Absolute Lymphs (auto) Seg Neutrophils % D-Dimer 2.07 H BUN Creatinine Est GFR ( Amer) Est GFR (MDRD) Non-Af Glucose C-Reactive Protein 17.7 H NT-Pro-B Natriuret Pep - Diagnostic Test Radiology reviewed: Image reviewed, Reports reviewed - Chest x-ray shows chronic pleural thickening in the bases, cardiomegaly without pulmonary edema. - EKG Interpretation by Ut EKG shows normal: [place], Intervals, QRS Complexes, ST-T Waves Rate: Normal - 84 Rhythm: Other - Ventricular paced rhythm - Consults Dr. Salinas Time consulted: 15:50 Consulted provider: will come to ER Discharge - Discharge Clinical Impression: Peripheral edema, Scrotal edema, Renal insufficiency, Cardiac pacemaker in situ COPD (chronic obstructive pulmonary disease) Qualifiers: COPD type: unspecified COPD Qualified Code(s): J44.9 - Chronic obstructive pulmonary disease, unspecified Diabetes Qualifiers: Diabetes mellitus type: type 2 Diabetes mellitus long-term insulin use: unspecified long-term insulin use status Diabetes mellitus complication status: without complication Qualified Code(s): E11.9 - Type 2 diabetes mellitus without complications Condition: Stable Disposition: ADMITTED INPATIENT Admitting Provider: Rita (Hospitalist) Unit Admitted: IMCU Referrals: ULI FRIED MD [ACTIVE STAFF] - Follow up as needed I personally performed the services described in the documentation, reviewed and edited the documentation which was dictated to the scribe in my presence, and it accurately records my words and actions.
[2019-10-07 15:10] LABS: C-REACTIVE PROTEIN 17.7 mg/L (<10.0)
[2019-10-07 15:21] LABS: INTERNATIONAL RATION (INR) 1.06
[2019-10-07 15:23] LABS: D-DIMER 2.07 ug/mL (0.00-0.50)
[2019-10-07] MEDS ORDERED: ONDANSETRON HCL INJ/PF 4 MG/2 ML SDV IV PRN (16:14)
[2019-10-07] MEDS ORDERED: ACETAMINOPHEN 325 MG TABLET PO PRN (16:14)
[2019-10-07] MEDS ORDERED: GLUCAGON,HUMAN RECOMB 1 MG INJ IM PRN (16:21)
[2019-10-07] MEDS ORDERED: DEXTROSE 40% GEL 15 GM TUBE PO PRN ×2 (16:21)
[2019-10-07] MEDS ORDERED: DEXTROSE 50%-WATER 25 GM/50 ML DISP.SYRIN IV PRN ×2 (16:21)
--- NOTE | 2019-10-07 16:30 | PDOC H&P ---
History of Present Illness Admission Date/PCP: CHE MORALES PA-C Patient complains of: Bilateral lower leg swelling associated with scrotal edema for 2 weeks History of Present Illness: LESLIE HERNANDEZ is a 84 year old male with history of pacemaker, CABG x5, m ultiple stent placements, diabetes mellitus, hypertension, ex-smoker came to the emergency room with complaints of bilateral lower leg swelling associated with scrotal swelling for the last 2 weeks. As per the patient he is compliant with his medications at home. Also complaining of shortness of breath using 2 pillows to sleep in a propped up position. Denies any chest pains. Denies any headaches dizzy spells. wants to be a DNR/DNI. Past Medical History Cardiac Medical History: Reports: Congestive Heart Failure, Myocardial Infarction, Hyperlipidema, Hypertension Endocrine Medical History: Reports: Diabetes Mellitus Type 2 Past Surgical History Past Surgical History: Reports: Cardiac Catheterization, Pacemaker Social History Information Source: Patient Lives with: Family Smoking Status: Never Smoker Electronic Cigarette use?: No Frequency of Alcohol Use: None Hx Recreational Drug Use: No Drugs: None Hx Prescription Drug Abuse: No - Advance Directive Resuscitation Status: Do Not Resuscitate Family History Family History: Reviewed & Not Pertinent, DM Parental Family History Reviewed: Yes - Heart disease Children Family History Reviewed: Yes Sibling(s) Family History Reviewed.: Yes Medication/Allergy Home Medications: Albuterol Sulfate [Proair HFA Inhalation Aerosol 8.5 gm MDI] 2 puff IH Q4HP PRN 05/15/17 Finasteride [Proscar 5 mg Tablet] 5 mg PO DAILY 05/15/17 Glipizide [Glucotrol 5 mg Tablet] 2.5 mg PO BID 05/15/17 Levothyroxine Sodium [Synthroid 0.025 mg Tablet] 0.025 mg PO Q6AM 05/15/17 Metformin HCl [Glucophage 500 mg Tablet] 500 mg PO BID 05/15/17 Simvastatin 10 mg PO QHS 05/15/17 Amlodipine Besylate [Norvasc 5 mg Tablet] 5 mg PO DAILY 09/19/17 Losartan Potassium 25 mg PO DAILY 09/19/17 Aspirin [Aspirin EC] 81 mg PO DAILY 09/20/17 Fluticasone/Salmeterol [Advair 250-50 Diskus 14 Dose/Diskus] 1 inh IH DAILY 09/20/17 Furosemide [Lasix 40 mg Tablet] 40 mg PO QAM 09/20/17 Isosorbide Mononitrate [Isosorbide Mononitrate ER] 30 mg PO QAM 09/20/17 Metoprolol Tartrate [Lopressor 50 mg Tablet] 50 mg PO Q12H 09/20/17 Multivit-Mins/Iron/Folic/Lycop [Centrum Men's Tablet] 1 each PO DAILY 09/20/17 Prednisone [Deltasone 20 mg Tablet] 60 mg PO DAILY #60 tablet 09/21/17 Levofloxacin [Levaquin 500 mg Tablet] 500 mg PO QPM 4 Days #4 tablet 09/22/17 Allergies/Adverse Reactions: Sulfa (Sulfonamide Antibiotics) Allergy (Severe, Verified 09/20/17 13:00) Coma Review of Systems Constitutional: ABSENT: fatigue, fever(s), headache(s), night sweats, weakness Eyes: ABSENT: visual disturbances Ears: ABSENT: hearing changes Nose, Mouth, and Throat: ABSENT: sore throat Respiratory: PRESENT: dyspnea. ABSENT: cough, sputum Gastrointestinal: PRESENT: other - Abdominal swelling Genitourinary: PRESENT: other - Scrotal swelling Integumentary: PRESENT: other - Lower extremity edema Neurological: ABSENT: abnormal gait, abnormal speech, confusion, dizziness, focal weakness, syncope Psychiatric: ABSENT: anxiety, depression, homidical ideation, suicidal ideation Physical Exam Vital Signs: Temp Pulse Resp BP Pulse Ox 97.7 F 84 24 H 134/51 H 94 10/07/19 10:39 10/07/19 10:39 10/07/19 10:39 10/07/19 10:39 10/07/19 10:39 Intake & Output 10/06/19 10/07/19 10/08/19 06:59 06:59 06:59 Weight 62.5 kg General appearance: PRESENT: no acute distress, cooperative, well-developed Head exam: PRESENT: atraumatic Eye exam: PRESENT: PERRLA Ear exam: PRESENT: normal external ear exam Mouth exam: PRESENT: neck supple Teeth exam: PRESENT: poor dentation Neck exam: PRESENT: JVD Respiratory exam: PRESENT: crackles, decreased breath sounds Cardiovascular exam: PRESENT: tachycardia, other - Pacemaker the right side of the chest GI/Abdominal exam: PRESENT: normal bowel sounds, soft. ABSENT: distended, guar ding, mass, organolmegaly, rebound, tenderness Rectal exam: PRESENT: other - Massive scrotal edema Extremities exam: PRESENT: +2 edema, other - Right lower leg with erythema most likely secondary to venous stasis Neurological exam: PRESENT: alert, awake, oriented to person, oriented to place, oriented to time, oriented to situation, CN II-XII grossly intact. ABSENT: motor sensory deficit Skin exam: PRESENT: other - Redness in both lower extremities secondary to venous stasis Results Laboratory Results: 10/07/19 11:18 10/07/19 11:18 10/07/19 10/07/19 10/07/19 11:11 11:18 11:18 WBC 6.7 RBC 3.54 L Hgb 11.4 L Hct 33.3 L MCV 94 MCH 32.2 MCHC 34.2 RDW 14.3 H Plt Count 205 Seg Neutrophils % 84.4 H Sodium 137.9 Potassium 4.4 Chloride 100 Carbon Dioxide 28 Anion Gap 10 BUN 33 H Creatinine 1.57 H Est GFR ( Amer) 51 L Glucose 112 H Calcium 9.1 Magnesium 2.3 Total Bilirubin 0.6 AST 31 Alkaline Phosphatase 81 C-Reactive Protein Total Protein 6.7 Albumin 4.0 Urine Color YELLOW Urine Appearance CLEAR Urine pH 6.0 Ur Specific [place] 1.010 Urine Protein NEGATIVE Urine Glucose (UA) NEGATIVE Urine Ketones NEGATIVE Urine Blood NEGATIVE Urine Nitrite NEGATIVE Ur Leukocyte Esterase NEGATIVE Urine WBC (Auto) 0 Urine RBC (Auto) 1 10/07/19 11:18 WBC RBC Hgb Hct MCV MCH MCHC RDW Plt Count Seg Neutrophils % Sodium Potassium Chloride Carbon Dioxide Anion Gap BUN Creatinine Est GFR ( Amer) Glucose Calcium Magnesium Total Bilirubin AST Alkaline Phosphatase C-Reactive Protein 17.7 H Total Protein Albumin Urine Color Urine Appearance Urine pH Ur Specific [place] Urine Protein Urine Glucose (UA) Urine Ketones Urine Blood Urine Nitrite Ur Leukocyte Esterase Urine WBC (Auto) Urine RBC (Auto) 10/07/19 10/07/19 11:18 11:18 Creatine Kinase 60 Troponin I 0.023 NT-Pro-B Natriuret Pep 5460 H Impressions: Chest X-Ray 10/07/19 11:05 IMPRESSION: Chronic pleural thickening in the lung bases. Cardiomegaly without pulmonary edema. Assessment and Plan - Diagnosis (1) Acute on chronic diastolic heart failure Is this a current diagnosis for this admission?: Yes Plan: 10/07/2019-patient is going to be admitted to [facility] as an inpatient for acute on chronic diastolic heart failure CODE STATUS is DNR/DNI started on IV Lasix 40 mg every 8 hours on fluid restriction 1500 cc/day cardiology consult with Dr. Todd was requested. Serial troponins are requested to repeat the BNP tomorrow. Echocardiogram is requested. Harris's catheter will be placed strict input output chart requested. 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 Plan is to hold metformin and to continue glipizide started on insulin sliding scale before meals and at bedtime, check hemoglobin A1c, diet exercise weight loss compliance with medications discussed with the patient. (4) CAD (coronary artery disease) Qualifiers: Coronary Disease-Associated Artery/Lesion type: unspecified vessel or lesion type Associated angina: with unspecified angina Is this a current diagnosis for this admission?: No Plan: 09/29/2019-patient has extensive coronary artery disease with multiple stent placements, denies any chest pains at the time of admission. (5) HTN (hypertension) Is this a current diagnosis for this admission?: No Plan: 10/07/2019-patient has history of hypertension chronic essential hypertension blood pressure is 140/52 in the emergency room. Stable. Plan is to continue losartan, hold amlodipine, started on Lasix 40 mg IV 3 times a day. - Time Anticipated Discharge Disposition: Home, Self Care Anticipated Discharge Timeframe: within 72 hours
[2019-10-07] MEDS ORDERED: IPRATROPIUM/ALBUTEROL 0.5-2.5 MG/3 ML AMPUL NEB ONE (16:45)
[2019-10-07] MEDS: FUROSEMIDE INJ/PF 40 MG/4 ML SDV IV SCH (17:46)
[2019-10-07] MEDS: PANTOPRAZOLE SODIUM 40 MG TABLET.DR PO SCH (17:52)
[2019-10-07] MEDS: HEPARIN SOD (PORCINE) 5,000 UNIT/ML 1 ML VIAL SUBCUT SCH (22:15)
--- NOTE | 2019-10-07 22:42 | PDOC CONSULTATION ---
Consultation Consult Date: 10/07/19 Attending physician:: LUANNE CISNEROS Provider Consulted: ULI FRIED Consult reason:: Congestive heart failure History of Present Illness Admission Date/PCP: 10/07/19 14:48 CHE MORALES PA-C Patient complains of: Lower extremity edema and dyspnea History of Present Illness: LESLIE HERNANDEZ is a 84 year old male Past Medical History Cardiac Medical History: Reports: Congestive Heart Failure, Myocardial Infarction, Hyperlipidema, Hypertension Endocrine Medical History: Reports: Diabetes Mellitus Type 2 Past Surgical History Past Surgical History: Reports: Cardiac Catheterization, Pacemaker Social History Information Source: Patient Lives with: Family Smoking Status: Never Smoker Electronic Cigarette use?: No Frequency of Alcohol Use: None Hx Recreational Drug Use: No Drugs: None Hx Prescription Drug Abuse: No - Advance Directive Resuscitation Status: Do Not Resuscitate Family History Family History: Reviewed & Not Pertinent, DM Parental Family History Reviewed: Yes Children Family History Reviewed: Yes Sibling(s) Family History Reviewed.: Yes Medication/Allergy Home Medications: Albuterol Sulfate [Proair HFA Inhalation Aerosol 8.5 gm MDI] 2 puff IH Q4HP PRN 05/15/17 Finasteride [Proscar 5 mg Tablet] 5 mg PO DAILY 05/15/17 Glipizide [Glucotrol 5 mg Tablet] 2.5 mg PO BID 05/15/17 Levothyroxine Sodium [Synthroid 0.025 mg Tablet] 0.025 mg PO Q6AM 05/15/17 Metformin HCl [Glucophage 500 mg Tablet] 500 mg PO BID 05/15/17 Simvastatin 10 mg PO QHS 05/15/17 Amlodipine Besylate [Norvasc 5 mg Tablet] 5 mg PO DAILY 09/19/17 Losartan Potassium 25 mg PO DAILY 09/19/17 Aspirin [Aspirin EC] 81 mg PO DAILY 09/20/17 Fluticasone/Salmeterol [Advair 250-50 Diskus 14 Dose/Diskus] 1 inh IH DAILY 09/20/17 Furosemide [Lasix 40 mg Tablet] 40 mg PO QAM 09/20/17 Isosorbide Mononitrate [Isosorbide Mononitrate ER] 30 mg PO QAM 09/20/17 Metoprolol Tartrate [Lopressor 50 mg Tablet] 50 mg PO Q12H 09/20/17 Multivit-Mins/Iron/Folic/Lycop [Centrum Men's Tablet] 1 each PO DAILY 09/20/17 Prednisone [Deltasone 20 mg Tablet] 60 mg PO DAILY #60 tablet 09/21/17 Levofloxacin [Levaquin 500 mg Tablet] 500 mg PO QPM 4 Days #4 tablet 09/22/17 Allergies/Adverse Reactions: Sulfa (Sulfonamide Antibiotics) Allergy (Severe, Verified 09/20/17 13:00) Coma Review of Systems Constitutional: PRESENT: weight gain. ABSENT: chills, fever(s), headache(s), weight loss Eyes: ABSENT: visual disturbances Ears: ABSENT: hearing changes Cardiovascular: PRESENT: dyspnea on exertion, edema, orthropnea. ABSENT: chest pain, palpitations Respiratory: PRESENT: cough, dyspnea. ABSENT: hemoptysis Gastrointestinal: PRESENT: bloating. ABSENT: abdominal pain, constipation, diarrhea, hematemesis, hematochezia, nausea, vomiting Genitourinary: PRESENT: difficulty urinating, dysuria. ABSENT: hematuria Musculoskeletal: ABSENT: joint swelling Integumentary: ABSENT: rash, wounds Neurological: ABSENT: abnormal gait, abnormal speech, confusion, dizziness, focal weakness, syncope Psychiatric: ABSENT: anxiety, depression, homidical ideation, suicidal ideation Endocrine: ABSENT: cold intolerance, heat intolerance, polydipsia, polyuria Hematologic/Lymphatic: ABSENT: easy bleeding, easy bruising Physical Exam Vital Signs: Temp Pulse Resp BP Pulse Ox 97.8 F 84 24 H 139/64 H 94 10/07/19 16:19 10/07/19 10:39 10/07/19 10:39 10/07/19 16:19 10/07/19 10:39 Intake & Output 10/06/19 10/07/19 10/08/19 06:59 06:59 06:59 Output Total 879 Balance -879 Weight 62.5 kg General appearance: PRESENT: no acute distress, well-developed, well-nourished Head exam: PRESENT: atraumatic, normocephalic Eye exam: PRESENT: conjunctiva pink, EOMI, PERRLA. ABSENT: scleral icterus Ear exam: PRESENT: normal external ear exam Mouth exam: PRESENT: moist, tongue midline Neck exam: PRESENT: JVD - 15 cm. ABSENT: carotid bruit, lymphadenopathy, thyromegaly Respiratory exam: PRESENT: clear to auscultation kris, decreased breath sounds - both bases, R>L. ABSENT: rales, rhonchi, wheezes Cardiovascular exam: PRESENT: RRR. ABSENT: diastolic murmur, rubs, systolic murmur Pulses: PRESENT: normal dorsalis pedis pul Vascular exam: PRESENT: normal capillary refill GI/Abdominal exam: PRESENT: normal bowel sounds, soft. ABSENT: distended, guarding, mass, organolmegaly, rebound, tenderness Rectal exam: PRESENT: deferred Extremities exam: PRESENT: full ROM. ABSENT: calf tenderness, clubbing, pedal edema Neurological exam: PRESENT: alert, awake, oriented to person, oriented to place, oriented to time, oriented to situation, CN II-XII grossly intact. ABSENT: motor sensory deficit Psychiatric exam: PRESENT: appropriate affect, normal mood. ABSENT: homicidal ideation, suicidal ideation Skin exam: PRESENT: dry, intact, warm. ABSENT: cyanosis, rash Results Laboratory Results: 10/07/19 11:18 10/07/19 11:18 10/07/19 10/07/19 10/07/19 11:11 11:18 11:18 WBC 6.7 RBC 3.54 L Hgb 11.4 L Hct 33.3 L MCV 94 MCH 32.2 MCHC 34.2 RDW 14.3 H Plt Count 205 Seg Neutrophils % 84.4 H Sodium 137.9 Potassium 4.4 Chloride 100 Carbon Dioxide 28 Anion Gap 10 BUN 33 H Creatinine 1.57 H Est GFR ( Amer) 51 L Glucose 112 H Calcium 9.1 Magnesium 2.3 Total Bilirubin 0.6 AST 31 Alkaline Phosphatase 81 C-Reactive Protein Total Protein 6.7 Albumin 4.0 Urine Color YELLOW Urine Appearance CLEAR Urine pH 6.0 Ur Specific [place] 1.010 Urine Protein NEGATIVE Urine Glucose (UA) NEGATIVE Urine Ketones NEGATIVE Urine Blood NEGATIVE Urine Nitrite NEGATIVE Ur Leukocyte Esterase NEGATIVE Urine WBC (Auto) 0 Urine RBC (Auto) 1 10/07/19 11:18 WBC RBC Hgb Hct MCV MCH MCHC RDW Plt Count Seg Neutrophils % Sodium Potassium Chloride Carbon Dioxide Anion Gap BUN Creatinine Est GFR ( Amer) Glucose Calcium Magnesium Total Bilirubin AST Alkaline Phosphatase C-Reactive Protein 17.7 H Total Protein Albumin Urine Color Urine Appearance Urine pH Ur Specific [place] Urine Protein Urine Glucose (UA) Urine Ketones Urine Blood Urine Nitrite Ur Leukocyte Esterase Urine WBC (Auto) Urine RBC (Auto) 10/07/19 10/07/19 10/07/19 11:18 11:18 16:39 Creatine Kinase 60 Troponin I 0.023 0.024 NT-Pro-B Natriuret Pep 5460 H EKG Comments: V paced rhythm Impressions: Chest X-Ray 10/07/19 11:05 IMPRESSION: Chronic pleural thickening in the lung bases. Cardiomegaly without pulmonary edema. Assessment & Plan - Diagnosis (1) Acute on chronic diastolic heart failure Is this a current diagnosis for this admission?: Yes (2) COPD (chronic obstructive pulmonary disease) Qualifiers: COPD type: unspecified COPD Qualified Code(s): J44.9 - Chronic obstructive pulmonary disease, unspecified Is this a current diagnosis for this admission?: Yes (3) Cardiac pacemaker in situ Is this a current diagnosis for this admission?: Yes (4) Diabetes Qualifiers: Diabetes mellitus type: type 2 Diabetes mellitus meterman insulin use: unspecified meterman insulin use status Diabetes mellitus complication status: without complication Qualified Code(s): E11.9 - Type 2 diabetes mellitus without complications Is this a current diagnosis for this admission?: No (5) HTN (hypertension) Qualifiers: Hypertension type: essential hypertension Qualified Code(s): I10 - Essential (primary) hypertension Is this a current diagnosis for this admission?: Yes (6) Peripheral edema Is this a current diagnosis for this admission?: Yes (7) CAD (coronary artery disease) Qualifiers: Coronary Disease-Associated Artery/Lesion type: cahto artery Associated angina: with unspecified angina Is this a current diagnosis for this admission?: No (8) Pleural effusion Is this a current diagnosis for this admission?: Yes (9) Pulmonary hypertension Is this a current diagnosis for this admission?: Yes - Notes Notes: Patient presents with increasing lower extremity edema, scrotal edema and dyspnea. Patient is noted to have at least 2+. Edema. He is also noted to have prominent distended JVD with prominent CV wave suggestive of tricuspid regurgitation. CHF is predominantly right-sided with some diastolic heart failure. Pleural effusion is secondary to heart failure. Patient does have underlying COPD therefore continue with bronchodilator therapy. Agree with diuretic therapy. Patient will benefit from nocturnal oxygen supplementation for pulmonary hypertension. Agree with obtaining a 2D echo. Last echocardiogram was more than a year ago. Further addition to therapeutic plan will be made after review of 2D echo. In the meantime continue with diuretic therapy, salt and fluid restriction, oxygen supplementation et cetera. Patient does have a dual chamber pacemaker. This is noted to be functioning normally. Patient has multiple other comorbid diagnosis which are being well managed by the hospitalist. - Time Time Spent: 30 to 50 Minutes Medications reviewed and adjusted accordingly: Yes
--- NOTE | 2019-10-07 23:27 | RADIOLOGY REPORT (SQ) ---
EXAM DESCRIPTION: [facility]Lex: US EXTREMITY VEINS BILATERAL CLINICAL HISTORY: 84 years Male; Bilat lower extremity swelling with elevated dimer TECHNIQUE: Multiple grayscale sonographic images of both legs were obtained utilizing a high-frequency linear array transducer supplemented with color Doppler, compression and augmentation techniques. COMPARISON: None. FINDINGS: Right leg veins: Common femoral: normal Greater saphenous: There is some nonocclusive echogenic marginal thrombus, likely chronic calcified thrombus. Similar changes are seen in the SSV. upper Superficial femoral: normal mid Superficial femoral: normal lower Superficial femoral: normal Popliteal: normal Posterior Tibial: normal Left leg veins: Common femoral: normal Greater saphenous: normal SSV: Several marginal chronic thrombi, similar to the right. upper Superficial femoral: normal mid Superficial femoral: normal lower Superficial femoral: normal Popliteal: normal Posterior Tibial: normal IMPRESSION: 1. No sonographic evidence for acute lower extremity deep venous thrombosis in either leg. 2. Several chronic appearing marginal nonocclusive thrombi in superficial veins.
--- NOTE | 2019-10-07 23:35 | EKG REPORT ---
SEVERITY:- ABNORMAL ECG - VENTRICULAR-PACED RHYTHM : Confirmed by: Sudha Pagan MD 07-Oct-2019 23:34:47
--- NOTE | 2019-10-08 00:21 | XCELERA REPORT ---
[address] [address] Transthoracic Echocardiogram Report Name: LESLIE HERNANDEZ Age: 84 yrs Gender: Male : 1935 Patient Status: Inpatient Patient Location: [address] [place] [address] Study Date: 10/07/2019 09:32 PM Height: 64 in Weight: 137 lb BSA: 1.7 m2 Procedure: A complete two-dimensional transthoracic echocardiogram was performed (2D, M-mode, spectral and color flow Doppler). The study was technically adequate with some images being suboptimal in quality. Reason For Study: chf Ordering Physician: FRANCES DANIEL Performed By: Abby Calderon Interpretation Summary LEFT VENTRICLE: LV Systolic function: LVEF is felt to be low normal to borderline reduced. Best estimate is approximately LVEF is 50 to 55 %. LV Diastolic Function: Grade III diastolic dysfunction noted. Wall motion: into ventricular septum mildly dyskinetic and participates in RV systolic indicative of RVH. Left ventricular chamber size: is within normal limit. Left ventricular wall thickness: is increased indicative of Mild LVH. RIGHT VENTRICLE: RV systolic function: is felt to be mildly depressed. Right Ventricle Size: moderately enlarged.. LEFT ATRIUM size: is mildly dilated. RIGHT ATRIUM size: moderate to severely dilated.. INTER ATRIAL SEPTUM: No definite atrial septal defect noted however a small PFO could be missed. AORTIC ROOT: seems to be within normal limits. ASCENDING AORTA: is not well visualized. INFERIOR VENA CAVA: dilated with reduced respiratory variation suggestive of increased RA pressure. VALVES: MITRAL VALVE: Leaflets are mildly thickened and calcified. Mobility seems to be within normal limits. A rather hyper echogenic small density noted associated with cordae-tendonie of the anterior mitral leaflet most consistent with calcification. Cannot rule out a healed vegetation. Mitral Regurgitation: moderate mitral regurgitation is noted. Mitral Stenosis: No mitral stenosis noted. Mitral valve prolapse: none noted. AORTIC VALVE: seems to be trileaflet with mild thickening but adequate excursion. Aortic stenosis: No aortic stenosis noted. Aortic regurgitation: mild aortic incompetence noted. TRICUSPID VALVE: mobility and structures within normal limit. Tricuspid stenosis: no tricuspid stenosis noted. Tricuspid regurgitation: moderate tricuspid regurgitation noted. Estimated RVSP: approximately 60 to 70 mmHg consistent with moderate pulmonary hypertension. PULMONARY VALVE: was not well visualized but no significant abnormalities suspected. Pulmonary stenosis: no pulmonary stenosis noted. Pulmonary regurgitation mild regurgitation noted. MASSES AND THROMBUS: No definite intracardiac thrombus or masses are noted. PERICARDIUM: No pericardial effusion was noted. IMPRESSION: 1 Low normal to borderline reduced LVEF. Best estimated at 50 to 55%. 2. Mild LVH noted. 3. Grade III moderate Diastolic Dysfunction noted. 4 Moderate mitral, moderate tricuspid, mild aortic and mild pulmonary regurgitation noted. 5. LA is mildly dilated. 6. RV and RAR moderately dilated. RV function is mildly dilated. 7. Severe pulmonary hypertension noted. 8. Hyper echogenic small density noted associated with cordae-tendonie of the anterior mitral leaflet most consistent with calcified nodule. Cannot rule out a healed vegetation (unlikely). May consider obtaining multiple sets of blood cultures if clinically indicated. 9. Pacemaker wires noted traversing the right atrium and the Right ventricle. MMode/2D Measurements & Calculations RVDd: 3.9 cm LVIDd: 3.8 cm FS: 36.5 % Ao root diam: 2.3 cm IVSd: 1.2 cm LVIDs: 2.4 cm EDV(Teich): 61.1 ml Ao root area: 4.2 cm2 LVPWd: 1.1 cm ESV(Teich): 20.1 ml LA dimension: 3.7 cm EF(Teich): 67.1 % Doppler Measurements & Calculations MV E max tony: MV P1/2t max tony: Ao V2 max: AI max tony: 157.4 cm/sec 176.3 cm/sec 137.9 cm/sec 338.0 cm/sec MV A max tony: MV P1/2t: 74.9 msec Ao max PG: AI max P.1 cm/sec MVA(P1/2t): 2.9 cm2 7.6 mmHg 45.7 mmHg MV E/A: 3.0 MV dec slope: AI dec slope: 229.0 cm/sec2 689.4 cm/sec2 AI P1/2t: MV dec time: 432.4 msec 0.20 sec LV V1 max PG: PA V2 max: PI end-d tony: TR max tony: 6.3 mmHg 74.4 cm/sec 153.4 cm/sec 365.1 cm/sec LV V1 max: PA max P.2 mmHg TR max P.6 cm/sec 53.3 mmHg AV P1/2t-pr_phl: MV P1/2t-pr_phl: 432.4 msec 74.9 msec : FRANCES DANIEL Shyamal
[2019-10-08] MEDS: INSULIN REG, HUMAN 100 UNIT/ML 3 ML VIAL (PYX) SUBCUT SCH ×5 (04:49→22:24)
[2019-10-08] MEDS: HEPARIN SOD (PORCINE) 5,000 UNIT/ML 1 ML VIAL SUBCUT SCH ×3 (06:03→22:31)
[2019-10-08] MEDS: PANTOPRAZOLE SODIUM 40 MG TABLET.DR PO SCH ×2 (06:03→18:05)
[2019-10-08 06:37] LABS: ABSOLUTE BASOPHILS # (AUTO) 0.1 10^3/uL (0.0-0.2); ABSOLUTE EOSINOPHILS # (AUTO) 0.1 10^3/uL (0.0-0.6); ABSOLUTE LYMPHOCYTES (AUTO) 0.4 10^3/uL (0.5-4.7); ABSOLUTE MONOCYTES (AUTO) 0.6 10^3/uL (0.1-1.4); ABSOLUTE NEUT (AUTO) 4.5 10^3/uL (1.7-8.2); BASOPHILS % (AUTO) 1.2 % (0-2); EOSINOPHILS % (AUTO) 1.8 % (0-6); HEMATOCRIT 33.2 % (37.9-51.0); HEMOGLOBIN 11.4 g/dL (13.5-17.0); LYMPHOCYTES % (AUTO) 7.5 % (13-45); MEAN CORPUSCULAR HEMOGLOBIN 32.3 pg (27.0-33.4); MEAN CORPUSCULAR HGB CONC 34.2 g/dL (32.0-36.0); MEAN CORPUSCULAR VOLUME 94 fl (80-97); MONOCYTES % (AUTO) 10.1 % (3-13); PLATELET COUNT 219 10^3/uL (150-450); RED BLOOD COUNT 3.53 10^6/uL (4.35-5.55); RED CELL DISTRIBUTION WIDTH 14.2 % (11.5-14.0); SEGMENTED NEUTROPHILS % (AUTO) 79.4 % (42-78); TOTAL CELLS COUNTED % (AUTO) 100 %; WHITE BLOOD COUNT 5.7 10^3/uL (4.0-10.5)
[2019-10-08 06:41] LABS: INTERNATIONAL RATION (INR) 1.14; PROTHROMBIN TIME 14.9 SEC (11.4-15.4)
[2019-10-08 06:56] LABS: ALBUMIN 3.9 g/dL (3.5-5.0); ALKALINE PHOSPHATASE 77 U/L (38-126); ANION GAP 12 (5-19); ASPARTATE AMINO TRANSFERASE 28 U/L (17-59); BILIRUBIN,DIRECT 0.4 mg/dL (0.0-0.4); BILIRUBIN,TOTAL 0.7 mg/dL (0.2-1.3); BLOOD UREA NITROGEN 31 mg/dL (7-20); CALCIUM 9.3 mg/dL (8.4-10.2); CARBON DIOXIDE 28 mmol/L (22-30); CHLORIDE 102 mmol/L (98-107); CHOLESTEROL 102.14 mg/dL (0-200); GLUCOSE 94 mg/dL (75-110); POTASSIUM 3.9 mmol/L (3.6-5.0); TOTAL PROTEIN 6.8 g/dL (6.3-8.2); TRIGLYCERIDES 89 mg/dL (<150)
[2019-10-08 07:05] LABS: TROPONIN I 0.035 ng/mL
[2019-10-08 07:07] LABS: DIRECT LDL 44 mg/dL (<100)
--- NOTE | 2019-10-08 08:36 | PDOC PROGRESS REPORT ---
Subjective Progress Note for:: 10/08/19 Subjective:: 84 year old male with history of pacemaker, CABG x5, multiple stent placements, diabetes mellitus, hypertension, ex-smoker came to the emergency room with complaints of bilateral lower leg swelling associated with scrotal swelling for the last 2 weeks. As per the patient he is compliant with his medications at home. Also complaining of shortness of breath using 2 pillows to sleep in a propped up position. Denies any chest pains. Denies any headaches dizzy spe lls. wants to be a DNR/DNI. 10/08/[id number]-ooyj-old male admitted with acute on chronic diastolic heart failure. Admitted with huge scrotal edema and bilateral lower leg swelling. Urinary output is -2 L. Scrotal edema bilateral lower leg edema improving. Cardiology consult was done , venous Doppler is negative for DVT. Reason For Visit: CHF Physical Exam Vital Signs: Temp Pulse Resp BP Pulse Ox 97.4 F 75 20 131/51 H 98 10/08/19 08:15 10/08/19 08:15 10/08/19 08:15 10/08/19 08:15 10/08/19 08:15 Intake & Output 10/07/19 10/08/19 10/09/19 06:59 06:59 06:59 Intake Total 150 Output Total 2179 -2028 Weight 60.1 kg General appearance: PRESENT: no acute distress, cooperative, well-developed Head exam: PRESENT: atraumatic Eye exam: PRESENT: PERRLA Mouth exam: PRESENT: moist, tongue midline Teeth exam: PRESENT: poor dentation Neck exam: PRESENT: JVD Respiratory exam: PRESENT: decreased breath sounds Cardiovascular exam: PRESENT: RRR. ABSENT: diastolic murmur, rubs, systolic murmur GI/Abdominal exam: PRESENT: normal bowel sounds, soft. ABSENT: distended, guarding, mass, organolmegaly, rebound, tenderness Rectal exam: PRESENT: deferred Gentrourinary exam: PRESENT: other - Scrotal edema is improving. Extremities exam: PRESENT: +2 edema Musculoskeletal exam: PRESENT: other Neurological exam: PRESENT: alert, awake, oriented to person, oriented to place, oriented to time, oriented to situation, CN II-XII grossly intact. ABSENT: motor sensory deficit Psychiatric exam: PRESENT: appropriate affect, normal mood. ABSENT: homicidal ideation, suicidal ideation Results Laboratory Results: 10/08/19 06:06 10/08/19 06:06 10/07/19 10/07/19 10/07/19 11:11 11:18 11:18 WBC 6.7 RBC 3.54 L Hgb 11.4 L Hct 33.3 L MCV 94 MCH 32.2 MCHC 34.2 RDW 14.3 H Plt Count 205 Seg Neutrophils % 84.4 H Sodium 137.9 Potassium 4.4 Chloride 100 Carbon Dioxide 28 Anion Gap 10 BUN 33 H Creatinine 1.57 H Est GFR ( Amer) 51 L Glucose 112 H Calcium 9.1 Magnesium 2.3 Total Bilirubin 0.6 AST 31 Alkaline Phosphatase 81 C-Reactive Protein Total Protein 6.7 Albumin 4.0 Triglycerides Cholesterol LDL Cholesterol Direct VLDL Cholesterol HDL Cholesterol TSH Urine Color YELLOW Urine Appearance CLEAR Urine pH 6.0 Ur Specific [place] 1.010 Urine Protein NEGATIVE Urine Glucose (UA) NEGATIVE Urine Ketones NEGATIVE Urine Blood NEGATIVE Urine Nitrite NEGATIVE Ur Leukocyte Esterase NEGATIVE Urine WBC (Auto) 0 Urine RBC (Auto) 1 10/07/19 10/08/19 10/08/19 11:18 06:06 06:06 WBC 5.7 RBC 3.53 L Hgb 11.4 L Hct 33.2 L MCV 94 MCH 32.3 MCHC 34.2 RDW 14.2 H Plt Count 219 Seg Neutrophils % 79.4 H Sodium 141.5 Potassium 3.9 Chloride 102 Carbon Dioxide 28 Anion Gap 12 BUN 31 H Creatinine 1.49 H Est GFR ( Amer) 54 L Glucose 94 Calcium 9.3 Magnesium 2.2 Total Bilirubin 0.7 AST 28 Alkaline Phosphatase 77 C-Reactive Protein 17.7 H Total Protein 6.8 Albumin 3.9 Triglycerides 89 Cholesterol 102.14 LDL Cholesterol Direct 44 VLDL Cholesterol 18.0 HDL Cholesterol 39 L TSH Urine Color Urine Appearance Urine pH Ur Specific [place] Urine Protein Urine Glucose (UA) Urine Ketones Urine Blood Urine Nitrite Ur Leukocyte Esterase Urine WBC (Auto) Urine RBC (Auto) 10/08/19 06:06 WBC RBC Hgb Hct MCV MCH MCHC RDW Plt Count Seg Neutrophils % Sodium Potassium Chloride Carbon Dioxide Anion Gap BUN Creatinine Est GFR ( Amer) Glucose Calcium Magnesium Total Bilirubin AST Alkaline Phosphatase C-Reactive Protein Total Protein Albumin Triglycerides Cholesterol LDL Cholesterol Direct VLDL Cholesterol HDL Cholesterol TSH 8.22 H Urine Color Urine Appearance Urine pH Ur Specific [place] Urine Protein Urine Glucose (UA) Urine Ketones Urine Blood Urine Nitrite Ur Leukocyte Esterase Urine WBC (Auto) Urine RBC (Auto) 10/07/19 10/07/19 10/07/19 11:18 11:18 16:39 Creatine Kinase 60 Troponin I 0.023 0.024 NT-Pro-B Natriuret Pep 5460 H 10/07/19 10/08/19 22:55 06:06 Creatine Kinase Troponin I 0.029 0.035 NT-Pro-B Natriuret Pep 7360 H Impressions: Chest X-Ray 10/07/19 11:05 IMPRESSION: Chronic pleural thickening in the lung bases. Cardiomegaly without pulmonary edema. Venous Doppler Study 10/07/19 15:39 IMPRESSION: 1. No sonographic evidence for acute lower extremity deep venous thrombosis in either leg. 2. Several chronic appearing marginal nonocclusive thrombi in superficial veins. Assessment and Plan - Diagnosis (1) Acute on chronic diastolic heart failure Is this a current diagnosis for this admission?: Yes Plan: 10/07/2019-patient is going to be admitted to [facility] as an inpatient for acute on chronic diastolic heart failure CODE STATUS is DNR/DNI started on IV Lasix 40 mg every 8 hours on fluid restriction 1500 cc/day cardiology consult with Dr. Todd was requested. Serial troponins are requested to repeat the BNP tomorrow. Echocardiogram is requested. Harris's catheter will be placed strict input output chart requested. 10/08/2019-patient admitted with acute on chronic diastolic heart failure presently on IV Lasix 40 mg every 8 hours, fluid restriction 1500 cc/day. BNP is 7300 today plan is to continue diuretic therapy as planned. 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 Plan is to hold metformin and to continue glipizide started on insulin sliding scale before meals and at bedtime, check hemoglobin A1c, diet exercise weight loss compliance with medications discussed with the patient. 10/08/2019-latest blood sugar is 127 and hemoglobin A1c is 5.4. Plan is to continue insulin sliding scale at this time. (4) CAD (coronary artery disease) Qualifiers: Coronary Disease-Associated Artery/Lesion type: [place] artery Associated angina: with unspecified angina Is this a current diagnosis for this admission?: No (5) HTN (hypertension) Qualifiers: Hypertension type: essential hypertension Qualified Code(s): I10 - Essential (primary) hypertension Is this a current diagnosis for this admission?: Yes Plan: 10/07/2019-patient has history of hypertension chronic essential hypertension blood pressure is 140/52 in the emergency room. Stable. Plan is to continue losartan, hold amlodipine, started on Lasix 40 mg IV 3 times a day. 10/08/2019-blood pressure today is 120/52 stable. plan is to continue losartan, Lasix 40 mg IV 3 times a day. - Time Anticipated Discharge Disposition: Home, Self Care Anticipated Discharge Timeframe: within 48 hours
[2019-10-08] MEDS: FUROSEMIDE INJ/PF 40 MG/4 ML SDV IV SCH ×3 (09:28→18:05)
[2019-10-08] MEDS: SPIRONOLACTONE 25 MG TABLET PO SCH (12:09)
[2019-10-09] MEDS: PANTOPRAZOLE SODIUM 40 MG TABLET.DR PO SCH ×2 (05:34→18:03)
[2019-10-09] MEDS: HEPARIN SOD (PORCINE) 5,000 UNIT/ML 1 ML VIAL SUBCUT SCH ×3 (05:34→22:08)
[2019-10-09 07:34] LABS: ABSOLUTE BASOPHILS # (AUTO) 0.1 10^3/uL (0.0-0.2); ABSOLUTE EOSINOPHILS # (AUTO) 0.1 10^3/uL (0.0-0.6); ABSOLUTE LYMPHOCYTES (AUTO) 0.5 10^3/uL (0.5-4.7); ABSOLUTE MONOCYTES (AUTO) 0.8 10^3/uL (0.1-1.4); BASOPHILS % (AUTO) 0.7 % (0-2); EOSINOPHILS % (AUTO) 1.4 % (0-6); HEMATOCRIT 35.1 % (37.9-51.0); HEMOGLOBIN 11.9 g/dL (13.5-17.0); LYMPHOCYTES % (AUTO) 6.4 % (13-45); MEAN CORPUSCULAR HEMOGLOBIN 31.9 pg (27.0-33.4); MEAN CORPUSCULAR HGB CONC 33.8 g/dL (32.0-36.0); MEAN CORPUSCULAR VOLUME 94 fl (80-97); MONOCYTES % (AUTO) 9.4 % (3-13); PLATELET COUNT 248 10^3/uL (150-450); RED BLOOD COUNT 3.71 10^6/uL (4.35-5.55); RED CELL DISTRIBUTION WIDTH 13.9 % (11.5-14.0); SEGMENTED NEUTROPHILS % (AUTO) 82.1 % (42-78); TOTAL CELLS COUNTED % (AUTO) 100 %; WHITE BLOOD COUNT 8.6 10^3/uL (4.0-10.5)
[2019-10-09 07:55] LABS: ALBUMIN 3.9 g/dL (3.5-5.0); ALKALINE PHOSPHATASE 79 U/L (38-126); ANION GAP 9 (5-19); ASPARTATE AMINO TRANSFERASE 27 U/L (17-59); BILIRUBIN,DIRECT 0.4 mg/dL (0.0-0.4); BILIRUBIN,TOTAL 0.7 mg/dL (0.2-1.3); BLOOD UREA NITROGEN 27 mg/dL (7-20); CALCIUM 9.5 mg/dL (8.4-10.2); CARBON DIOXIDE 32 mmol/L (22-30); CHLORIDE 100 mmol/L (98-107); GLUCOSE 123 mg/dL (75-110); POTASSIUM 3.9 mmol/L (3.6-5.0); TOTAL PROTEIN 6.9 g/dL (6.3-8.2)
--- NOTE | 2019-10-09 09:41 | PDOC PROGRESS REPORT ---
Subjective Progress Note for:: 10/09/19 Subjective:: 84 year old male with history of pacemaker, CABG x5, multiple stent placements, diabetes mellitus, hypertension, ex-smoker came to the emergency room with complaints of bilateral lower leg swelling associated with scrotal swelling for the last 2 weeks. As per the patient he is compliant with his medications at home. Also complaining of shortness of breath using 2 pillows to sleep in a propped up position. Denies any chest pains. Denies any headaches dizzy spe lls. wants to be a DNR/DNI. 10/08/[id number]-umld-old male admitted with acute on chronic diastolic heart failure. Admitted with huge scrotal edema and bilateral lower leg swelling. Urinary output is -2 L. Scrotal edema bilateral lower leg edema improving. Cardiology consult was done , venous Doppler is negative for DVT. 10/09/[id number]-kify-old male with history of pacemaker and right side of the chest admitted with acute on chronic diastolic heart failure. Consultation with cardiology was done. Patient is on Lasix 40 mg IV every 8 hours, spironolactone. Negative fluid balance of 2.3 L in the last 24 hours. Plan is to switch Lasix to 40 mg daily twice a day by mouth. Plan is to continue strict input output chart and daily weights. Patient is on fluid restriction. Reason For Visit: CHF Physical Exam Vital Signs: Temp Pulse Resp BP Pulse Ox 97.7 F 72 16 129/53 H 96 10/09/19 07:32 10/09/19 07:32 10/09/19 07:32 10/09/19 07:32 10/09/19 07:32 Intake & Output 10/08/19 10/09/19 10/10/19 06:59 06:59 06:59 Intake Total 150 1150 Output Total 2179 4015 Balance -2028 Weight 60.1 kg 58.5 kg General appearance: PRESENT: no acute distress, cooperative, well-developed Head exam: PRESENT: atraumatic Eye exam: PRESENT: PERRLA Ear exam: PRESENT: normal external ear exam Mouth exam: PRESENT: neck supple Teeth exam: PRESENT: poor dentation Neck exam: ABSENT: carotid bruit, JVD, lymphadenopathy, thyromegaly Respiratory exam: PRESENT: decreased breath sounds Cardiovascular exam: PRESENT: RRR, other - Pacemaker present on the right side of the chest.. ABSENT: diastolic murmur, rubs, systolic murmur GI/Abdominal exam: PRESENT: normal bowel sounds, soft. ABSENT: distended, guarding, mass, organolmegaly, rebound, tenderness Rectal exam: PRESENT: deferred Gentrourinary exam: PRESENT: indwelling catheter, other - Scrotal edema improving. Extremities exam: PRESENT: full ROM. ABSENT: calf tenderness, clubbing, pedal edema Neurological exam: PRESENT: alert, awake, oriented to person, oriented to place, oriented to time, oriented to situation, CN II-XII grossly intact. ABSENT: motor sensory deficit Psychiatric exam: PRESENT: appropriate affect, normal mood. ABSENT: homicidal ideation, suicidal ideation Results Laboratory Results: 10/09/19 07:24 10/09/19 07:24 10/09/19 10/09/19 07:24 07:24 WBC 8.6 RBC 3.71 L Hgb 11.9 L Hct 35.1 L MCV 94 MCH 31.9 MCHC 33.8 RDW 13.9 Plt Count 248 Seg Neutrophils % 82.1 H Sodium 140.5 Potassium 3.9 Chloride 100 Carbon Dioxide 32 H Anion Gap 9 BUN 27 H Creatinine 1.36 H Est GFR ( Amer) > 60 Glucose 123 H Calcium 9.5 Magnesium 2.2 Total Bilirubin 0.7 AST 27 Alkaline Phosphatase 79 Total Protein 6.9 Albumin 3.9 10/07/19 10/07/19 10/07/19 11:18 11:18 16:39 Creatine Kinase 60 Troponin I 0.023 0.024 NT-Pro-B Natriuret Pep 5460 H 10/07/19 10/08/19 10/09/19 22:55 06:06 07:24 Creatine Kinase Troponin I 0.029 0.035 NT-Pro-B Natriuret Pep 7360 H 7770 H Impressions: Chest X-Ray 10/07/19 11:05 IMPRESSION: Chronic pleural thickening in the lung bases. Cardiomegaly without pulmonary edema. Venous Doppler Study 10/07/19 15:39 IMPRESSION: 1. No sonographic evidence for acute lower extremity deep venous thrombosis in either leg. 2. Several chronic appearing marginal nonocclusive thrombi in superficial veins. Assessment and Plan - Diagnosis (1) Acute on chronic diastolic heart failure Is this a current diagnosis for this admission?: Yes Plan: 10/07/2019-patient is going to be admitted to [facility] as an inpatient for acute on chronic diastolic heart failure CODE STATUS is DNR/DNI started on IV Lasix 40 mg every 8 hours on fluid restriction 1500 cc/day cardiology consult with Dr. Todd was requested. Serial troponins are requested to repeat the BNP tomorrow. Echocardiogram is requested. Harris's catheter will be placed strict input output chart requested. 10/08/2019-patient admitted with acute on chronic diastolic heart failure presently on IV Lasix 40 mg every 8 hours, fluid restriction 1500 cc/day. BNP is 7300 today plan is to continue diuretic therapy as planned. 10/09/1920-99-falq-old male admitted with fluid overload and acute on chronic diastolic heart failure. Presently on Lasix 40 mg 3 times daily and fluid restriction 1500 cc/day and spironolactone plan is to discontinue IV Lasix started on p.o. Lasix 40 mg twice a day. Patient's weight on admission is a 62.5 kg now it is 58.5 kg. 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 Plan is to hold metformin and to continue glipizide started on insulin sliding scale before meals and at bedtime, check hemoglobin A1c, diet exercise weight loss compliance with medications discussed with the patient. 10/08/2019-latest blood sugar is 127 and hemoglobin A1c is 5.4. Plan is to continue insulin sliding scale at this time. 10/09/19-latest blood sugar is 124. Well-controlled. Plan is to continue insulin sliding scale before meals and at bedtime. Glipizide and metformin on hold at this time. (4) CAD (coronary artery disease) Qualifiers: Coronary Disease-Associated Artery/Lesion type: [place] artery Associated angina: with unspecified angina Is this a current diagnosis for this admission?: No Plan: 09/29/2019-patient has extensive coronary artery disease with multiple stent placements, denies any chest pains at the time of admission. (5) HTN (hypertension) Qualifiers: Hypertension type: essential hypertension Qualified Code(s): I10 - Essential (primary) hypertension Is this a current diagnosis for this admission?: Yes Plan: 10/07/2019-patient has history of hypertension chronic essential hypertension blood pressure is 140/52 in the emergency room. Stable. Plan is to continue losartan, hold amlodipine, started on Lasix 40 mg IV 3 times a day. 10/08/2019-blood pressure today is 120/52 stable. plan is to continue losartan, Lasix 40 mg IV 3 times a day. 10/09/2019-blood pressure today's 130/45. To continue losartan, spironolactone and placed on Lasix 40 mg p.o. twice daily. - Time Anticipated Discharge Disposition: Home, Self Care Anticipated Discharge Timeframe: within 48 hours
[2019-10-09] MEDS: SPIRONOLACTONE 25 MG TABLET PO SCH (10:47)
[2019-10-09] MEDS: LOSARTAN POTASSIUM 25 MG TABLET PO SCH (10:47)
[2019-10-09] MEDS: FUROSEMIDE 40 MG TABLET PO SCH ×2 (10:47→18:03)
[2019-10-09] MEDS: INSULIN REG, HUMAN 100 UNIT/ML 3 ML VIAL (PYX) SUBCUT SCH ×4 (10:50→22:08)
--- NOTE | 2019-10-09 23:48 | PDOC PROGRESS REPORT ---
Subjective Progress Note for:: 10/09/19 Subjective:: Patient was seen on morning rounds. His edema is less. His dyspnea has improved however BNP remained significantly high. No new symptoms reported by the efraín ent. He now has a urinary catheter. Reason For Visit: CHF Physical Exam Vital Signs: Temp Pulse Resp BP Pulse Ox 98.5 F 63 20 137/51 H 98 10/09/19 20:00 10/09/19 20:00 10/09/19 20:00 10/09/19 20:00 10/09/19 20:00 Intake & Output 10/08/19 10/09/19 10/10/19 06:59 06:59 06:59 Intake Total 150 1150 720 Output Total 2179 3475 650 Balance -2028 70 Weight 60.1 kg 58.5 kg Exam: GEN: NAD, patient alert oriented x3. Appearance and grooming WNL HEENT : Eyes: MAN, Ears: No significant abnormalities, Nose: No significant abnormalities. normocephalic atraumatic. Flat midface (-), Receding chin (-) ORAL : Mallampati class IV, narrow arched palate (-) Tonsils: Not enlarged. NECK: no thyromegaly, no masses, trachea is central, JVD is elevated, prominent CV waves noted, carotids 2+ with bruit (-) RESP: lungs clear, no rales, wheezes or rhonchi, nonlabored, accessory muscles of respiration use (-). CV: NL S1 and S2. 2/6 LSB significant murmurs noted, no gallop, no extra sounds, no clicks, no rub noted. GI: abd NT to palpation, no masses, bowel sounds present, no guarding or rigidity noted. EXT: no clubbing, (-) cyanosis, edema (1 +), perpheral pulses diminished (no) MUSC/SKEL: no acute joint swelling noted. Muscle strength is generally intact. NEURO: no significant focal neurological deficits are note, sensation grossly intact, AO x 3 PSYCH: NL mood and affect. judgment and insight noted to be intact. SKIN: (-) rash, (-)Signs of pruritus, (-) other significant abnormality Results Laboratory Results: 10/09/19 07:24 10/09/19 07:24 10/09/19 10/09/19 07:24 07:24 WBC 8.6 RBC 3.71 L Hgb 11.9 L Hct 35.1 L MCV 94 MCH 31.9 MCHC 33.8 RDW 13.9 Plt Count 248 Seg Neutrophils % 82.1 H Sodium 140.5 Potassium 3.9 Chloride 100 Carbon Dioxide 32 H Anion Gap 9 BUN 27 H Creatinine 1.36 H Est GFR ( Amer) > 60 Glucose 123 H Calcium 9.5 Magnesium 2.2 Total Bilirubin 0.7 AST 27 Alkaline Phosphatase 79 Total Protein 6.9 Albumin 3.9 10/07/19 10/07/19 10/07/19 11:18 11:18 16:39 Creatine Kinase 60 Troponin I 0.023 0.024 NT-Pro-B Natriuret Pep 5460 H 10/07/19 10/08/19 10/09/19 22:55 06:06 07:24 Creatine Kinase Troponin I 0.029 0.035 NT-Pro-B Natriuret Pep 7360 H 7770 H Impressions: Chest X-Ray 10/07/19 11:05 IMPRESSION: Chronic pleural thickening in the lung bases. Cardiomegaly without pulmonary edema. Venous Doppler Study 10/07/19 15:39 IMPRESSION: 1. No sonographic evidence for acute lower extremity deep venous thrombosis in either leg. 2. Several chronic appearing marginal nonocclusive thrombi in superficial veins. 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 group home insulin use status Diabetes mellitus complication status: without complication Qualified Code(s): E11.9 - Type 2 diabetes mellitus without complications Is this a current diagnosis for this admission?: No (5) HTN (hypertension) Qualifiers: Hypertension type: essential hypertension Qualified Code(s): I10 - Essential (primary) hypertension Is this a current diagnosis for this admission?: Yes (6) Peripheral edema Is this a current diagnosis for this admission?: Yes (7) CAD (coronary artery disease) Qualifiers: Coronary Disease-Associated Artery/Lesion type: [place] artery Associated angina: with unspecified angina Is this a current diagnosis for this admission?: No (8) Pleural effusion Is this a current diagnosis for this admission?: Yes (9) Pulmonary hypertension Is this a current diagnosis for this admission?: Yes - Notes Notes: 2D echo results were reviewed with the patient. Patient is noted to have predominantly right-sided heart failure with significant prominent CV waves, RV enlargement and severe pulmonary hypertension. Elinor duplex was negative for DVT. At this point continue Diuretic therapy. Continue diuretics therapy and spironolactone therapy. Telemetry strips shows ventricular paced rhythm. A wave difficult to discern. Possible underlying atrial fibrillation. Patient previous office records reviewed. It seems patient has a history of atrial fibrillation. Will recommend Eliquis therapy at low-dose of 2.5 bid. - Time Time with patient: 15-25 minutes Medications reviewed and adjusted accordingly: Yes
[2019-10-10] MEDS: PANTOPRAZOLE SODIUM 40 MG TABLET.DR PO SCH ×2 (05:34→17:33)
[2019-10-10] MEDS: HEPARIN SOD (PORCINE) 5,000 UNIT/ML 1 ML VIAL SUBCUT SCH (05:34)
[2019-10-10 09:09] LABS: ABSOLUTE BASOPHILS # (AUTO) 0.1 10^3/uL (0.0-0.2); ABSOLUTE EOSINOPHILS # (AUTO) 0.1 10^3/uL (0.0-0.6); ABSOLUTE LYMPHOCYTES (AUTO) 0.8 10^3/uL (0.5-4.7); ABSOLUTE MONOCYTES (AUTO) 0.7 10^3/uL (0.1-1.4); ABSOLUTE NEUT (AUTO) 7.6 10^3/uL (1.7-8.2); BASOPHILS % (AUTO) 0.8 % (0-2); HEMATOCRIT 35.3 % (37.9-51.0); LYMPHOCYTES % (AUTO) 8.4 % (13-45); MEAN CORPUSCULAR HEMOGLOBIN 32.2 pg (27.0-33.4); MEAN CORPUSCULAR HGB CONC 34.1 g/dL (32.0-36.0); MEAN CORPUSCULAR VOLUME 94 fl (80-97); MONOCYTES % (AUTO) 7.3 % (3-13); PLATELET COUNT 261 10^3/uL (150-450); RED BLOOD COUNT 3.75 10^6/uL (4.35-5.55); RED CELL DISTRIBUTION WIDTH 14.5 % (11.5-14.0); SEGMENTED NEUTROPHILS % (AUTO) 82.5 % (42-78); TOTAL CELLS COUNTED % (AUTO) 100 %; WHITE BLOOD COUNT 9.2 10^3/uL (4.0-10.5)
--- NOTE | 2019-10-10 09:11 | PDOC PROGRESS REPORT ---
Subjective Progress Note for:: 10/10/19 Subjective:: 84 year old male with history of pacemaker, CABG x5, multiple stent placements, diabetes mellitus, hypertension, ex-smoker came to the emergency room with complaints of bilateral lower leg swelling associated with scrotal swelling for the last 2 weeks. As per the patient he is compliant with his medications at home. Also complaining of shortness of breath using 2 pillows to sleep in a propped up position. Denies any chest pains. Denies any headaches dizzy spe lls. wants to be a DNR/DNI. 10/08/[id number]-zjav-old male admitted with acute on chronic diastolic heart failure. Admitted with huge scrotal edema and bilateral lower leg swelling. Urinary output is -2 L. Scrotal edema bilateral lower leg edema improving. Cardiology consult was done , venous Doppler is negative for DVT. 10/09/[id number]-twdz-old male with history of pacemaker and right side of the chest admitted with acute on chronic diastolic heart failure. Consultation with cardiology was done. Patient is on Lasix 40 mg IV every 8 hours, spironolactone. Negative fluid balance of 2.3 L in the last 24 hours. Plan is to switch Lasix to 40 mg daily twice a day by mouth. Plan is to continue strict input output chart and daily weights. Patient is on fluid restriction. 10/10/[id number]-audv-old male admitted with right heart failure with significant scrotal and lower extremity edema presently on spironolactone, losartan and Lasix. Negative balance of 720 mL. Physical therapy consult will be requested. As per cardiology recommendations to start him on Eliquis 2.5 mg p.o. twice daily. Patient is comfortably in the bed communicating well not in distress. Reason For Visit: CHF Physical Exam Vital Signs: Temp Pulse Resp BP Pulse Ox 97.7 F 62 16 129/50 H 97 10/10/19 07:39 10/10/19 07:39 10/10/19 07:39 10/10/19 07:39 10/10/19 07:39 Intake & Output 10/09/19 10/10/19 10/11/19 06:59 06:59 06:59 Intake Total 1150 780 Output Total 3475 1500 Balance -2325 -720 Weight 58.5 kg 59.5 kg General appearance: PRESENT: no acute distress, cooperative, well-developed Head exam: PRESENT: atraumatic Eye exam: PRESENT: PERRLA Mouth exam: PRESENT: moist, tongue midline Teeth exam: PRESENT: poor dentation Neck exam: ABSENT: carotid bruit, JVD, lymphadenopathy, thyromegaly Respiratory exam: PRESENT: decreased breath sounds Cardiovascular exam: PRESENT: tachycardia, other - Pacemaker present on the right side of the chest. GI/Abdominal exam: PRESENT: normal bowel sounds, soft. ABSENT: distended, guarding, mass, organolmegaly, rebound, tenderness Rectal exam: PRESENT: deferred Gentrourinary exam: PRESENT: other - Scrotal edema is improving. Extremities exam: PRESENT: pedal edema Neurological exam: PRESENT: alert, awake, oriented to person, oriented to place, oriented to time, oriented to situation, CN II-XII grossly intact. ABSENT: motor sensory deficit Psychiatric exam: PRESENT: appropriate affect, normal mood. ABSENT: homicidal ideation, suicidal ideation Results Laboratory Results: 10/07/19 10/07/19 10/07/19 11:18 11:18 16:39 Creatine Kinase 60 Troponin I 0.023 0.024 NT-Pro-B Natriuret Pep 5460 H 10/07/19 10/08/19 10/09/19 22:55 06:06 07:24 Creatine Kinase Troponin I 0.029 0.035 NT-Pro-B Natriuret Pep 7360 H 7770 H Impressions: Chest X-Ray 10/07/19 11:05 IMPRESSION: Chronic pleural thickening in the lung bases. Cardiomegaly without pulmonary edema. Venous Doppler Study 10/07/19 15:39 IMPRESSION: 1. No sonographic evidence for acute lower extremity deep venous thrombosis in either leg. 2. Several chronic appearing marginal nonocclusive thrombi in superficial veins. Assessment and Plan - Diagnosis (1) Acute on chronic diastolic heart failure Is this a current diagnosis for this admission?: Yes Plan: 10/07/2019-patient is going to be admitted to [facility] as an inpatient for acute on chronic diastolic heart failure CODE STATUS is DNR/DNI started on IV Lasix 40 mg every 8 hours on fluid restriction 1500 cc/day cardiology consult with Dr. Todd was requested. Serial troponins are requested to repeat the BNP tomorrow. Echocardiogram is requested. Harris's catheter will be placed strict input output chart requested. 10/08/2019-patient admitted with acute on chronic diastolic heart failure presently on IV Lasix 40 mg every 8 hours, fluid restriction 1500 cc/day. BNP is 7300 today plan is to continue diuretic therapy as planned. 10/09/1918-50-eiqs-old male admitted with fluid overload and acute on chronic diastolic heart failure. Presently on Lasix 40 mg 3 times daily and fluid restriction 1500 cc/day and spironolactone plan is to discontinue IV Lasix started on p.o. Lasix 40 mg twice a day. Patient's weight on admission is a 62.5 kg now it is 58.5 kg. 10/10/[id number]-pbuv-old male admitted with right heart failure with fluid overload including scrotal edema 3+ pedal edema. Presently on Lasix 40 mg IV twice a day, spironolactone and losartan. Negative fluid balance of 720 mL in the last 24 hours. As per the cardiology recommendations to start him on Eliquis 2.5 mg p.o. twice daily. (2) Cardiac pacemaker in situ Is this a current diagnosis for this admission?: Yes (3) Diabetes Qualifiers: Diabetes mellitus type: type 2 Diabetes mellitus prison insulin use: unspecified prison insulin use status Diabetes mellitus complication status: without complication Qualified Code(s): E11.9 - Type 2 diabetes mellitus without complications Is this a current diagnosis for this admission?: No Plan: 10/07/2019-patient has history of type 2 diabetes mellitus on metformin and glipizide at home. Plan is to hold metformin and to continue glipizide started on insulin sliding scale before meals and at bedtime, check hemoglobin A1c, diet exercise weight loss compliance with medications discussed with the patient. 10/08/2019-latest blood sugar is 127 and hemoglobin A1c is 5.4. Plan is to continue insulin sliding scale at this time. 10/09/19-latest blood sugar is 124. Well-controlled. Plan is to continue insulin sliding scale before meals and at bedtime. Glipizide and metformin on hold at this time. 10/09-10/10/2019-blood sugar is 195. Plan is to continue insulin sliding scale before meals and at bedtime to hold glipizide and metformin at this time. (4) CAD (coronary artery disease) Qualifiers: Coronary Disease-Associated Artery/Lesion type: [place] artery Associated angina: with unspecified angina Is this a current diagnosis for this admission?: No Plan: 09/29/2019-patient has extensive coronary artery disease with multiple stent placements, denies any chest pains at the time of admission. (5) HTN (hypertension) Qualifiers: Hypertension type: essential hypertension Qualified Code(s): I10 - Essential (primary) hypertension Is this a current diagnosis for this admission?: Yes Plan: 10/07/2019-patient has history of hypertension chronic essential hypertension blood pressure is 140/52 in the emergency room. Stable. Plan is to continue losartan, hold amlodipine, started on Lasix 40 mg IV 3 times a day. 10/08/2019-blood pressure today is 120/52 stable. plan is to continue losartan, Lasix 40 mg IV 3 times a day. 10/09/2019-blood pressure today's 130/45. To continue losartan, spironolactone and placed on Lasix 40 mg p.o. twice daily. 10/10/2019-blood pressure is 133/60. Stable. Plan is to continue the present management at this time. - Time Anticipated Discharge Disposition: Home, Self Care Anticipated Discharge Timeframe: within 24 hours
[2019-10-10 09:20] LABS: ALBUMIN 4.1 g/dL (3.5-5.0); ALKALINE PHOSPHATASE 84 U/L (38-126); ANION GAP 10 (5-19); ASPARTATE AMINO TRANSFERASE 30 U/L (17-59); BILIRUBIN,DIRECT 0.4 mg/dL (0.0-0.4); BILIRUBIN,TOTAL 0.9 mg/dL (0.2-1.3); BLOOD UREA NITROGEN 19 mg/dL (7-20); CALCIUM 9.2 mg/dL (8.4-10.2); CARBON DIOXIDE 26 mmol/L (22-30); CHLORIDE 103 mmol/L (98-107); GLUCOSE 186 mg/dL (75-110); POTASSIUM 4.4 mmol/L (3.6-5.0); TOTAL PROTEIN 6.6 g/dL (6.3-8.2)
[2019-10-10] MEDS: INSULIN REG, HUMAN 100 UNIT/ML 3 ML VIAL (PYX) SUBCUT SCH ×4 (10:40→22:05)
[2019-10-10] MEDS: LOSARTAN POTASSIUM 25 MG TABLET PO SCH (10:42)
[2019-10-10] MEDS: SPIRONOLACTONE 25 MG TABLET PO SCH (10:42)
[2019-10-10] MEDS: FUROSEMIDE 40 MG TABLET PO SCH ×2 (10:42→17:35)
[2019-10-10] MEDS: APIXABAN 2.5 MG TABLET PO SCH ×2 (10:43→17:33)
[2019-10-11] MEDS: PANTOPRAZOLE SODIUM 40 MG TABLET.DR PO SCH ×2 (05:59→17:07)
[2019-10-11] MEDS: INSULIN REG, HUMAN 100 UNIT/ML 3 ML VIAL (PYX) SUBCUT SCH ×4 (07:53→22:02)
[2019-10-11] MEDS: FUROSEMIDE 40 MG TABLET PO SCH ×2 (09:48→17:07)
[2019-10-11] MEDS: LOSARTAN POTASSIUM 25 MG TABLET PO SCH (09:48)
[2019-10-11] MEDS: APIXABAN 2.5 MG TABLET PO SCH ×2 (09:48→17:07)
[2019-10-11] MEDS: SPIRONOLACTONE 25 MG TABLET PO SCH (09:48)
--- NOTE | 2019-10-11 12:19 | PDOC PROGRESS REPORT ---
Subjective Progress Note for:: 10/11/19 Subjective:: Patient is sitting up eating lunch. His Harris catheter is still in place and this will be removed. He is on room air. He appears to be breathing comfortably. Reason For Visit: CHF Physical Exam Vital Signs: Temp Pulse Resp BP Pulse Ox 97.6 F 63 16 125/41 L 98 10/11/19 10:00 10/11/19 07:43 10/11/19 07:43 10/11/19 07:43 10/11/19 07:43 Intake & Output 10/10/19 10/11/19 10/12/19 06:59 06:59 06:59 Intake Total 780 1105 Output Total 1500 2750 Balance -720 -1645 Weight 59.5 kg 60.2 kg General appearance: PRESENT: no acute distress, cooperative, well-developed, well-nourished Head exam: PRESENT: atraumatic, normocephalic Ear exam: PRESENT: normal external ear exam. ABSENT: bleeding, drainage Mouth exam: PRESENT: moist, tongue midline Respiratory exam: PRESENT: rales - Faint at right base, symmetrical, unlabored. ABSENT: rhonchi, tachypnea, wheezes Cardiovascular exam: PRESENT: RRR, +S1, +S2, systolic murmur - 3/6. ABSENT: bradycardia, diastolic murmur, irregular rhythm, tachycardia GI/Abdominal exam: PRESENT: normal bowel sounds, soft. ABSENT: distended, tenderness Rectal exam: PRESENT: deferred Gentrourinary exam: PRESENT: indwelling catheter Extremities exam: ABSENT: pedal edema Musculoskeletal exam: PRESENT: ambulatory, normal inspection. ABSENT: deformity, dislocation Neurological exam: PRESENT: alert, awake, oriented to person, oriented to place, oriented to time, oriented to situation, CN II-XII grossly intact. ABSENT: altered Psychiatric exam: PRESENT: appropriate affect. ABSENT: agitated, anxious Focused psych exam: ABSENT: delusional, paranoid, restlessness Skin exam: PRESENT: dry, normal color, warm. ABSENT: rash Results Laboratory Results: 10/10/19 08:39 10/10/19 08:29 10/07/19 10/07/19 10/07/19 11:18 11:18 16:39 Creatine Kinase 60 Troponin I 0.023 0.024 NT-Pro-B Natriuret Pep 5460 H 10/07/19 10/08/19 10/09/19 22:55 06:06 07:24 Creatine Kinase Troponin I 0.029 0.035 NT-Pro-B Natriuret Pep 7360 H 7770 H 10/10/19 08:29 Creatine Kinase Troponin I NT-Pro-B Natriuret Pep 8200 H Impressions: Chest X-Ray 10/07/19 11:05 IMPRESSION: Chronic pleural thickening in the lung bases. Cardiomegaly without pulmonary edema. Venous Doppler Study 10/07/19 15:39 IMPRESSION: 1. No sonographic evidence for acute lower extremity deep venous thrombosis in either leg. 2. Several chronic appearing marginal nonocclusive thrombi in superficial veins. Assessment and Plan - Diagnosis (1) Acute on chronic diastolic heart failure Is this a current diagnosis for this admission?: Yes Plan: Continue increased dose of furosemide and resume previous cardiac regimen. Monitor electrolytes and renal function on increased dose of furosemide. (2) Acute kidney injury Is this a current diagnosis for this admission?: Yes Plan: Likely due to the heart failure. Resolved. Continue to monitor renal function on increased dose of furosemide (3) HTN (hypertension) Qualifiers: Hypertension type: essential hypertension Qualified Code(s): I10 - Essential (primary) hypertension Is this a current diagnosis for this admission?: Yes Plan: Resume patient's home antihypertensive medications. Monitor blood pressure as his furosemide dose has doubled. (4) CAD (coronary artery disease) Qualifiers: Coronary Disease-Associated Artery/Lesion type: [place] artery Associated angina: with unspecified angina Is this a current diagnosis for this admission?: Yes Plan: Resume previous cardiac medications including aspirin, Imdur, statin therapy and antihypertensives. (5) Hyperglycemia due to diabetes mellitus Is this a current diagnosis for this admission?: Yes Plan: Resume oral diabetic medications. Monitor Accu-Cheks and cover with sliding scale accordingly. (6) Hypothyroidism Qualifiers: Hypothyroidism type: unspecified Qualified Code(s): E03.9 - Hypothyroidism, unspecified Is this a current diagnosis for this admission?: Yes Plan: TSH is still elevated. Increase levothyroxine to 50 mcg daily. (7) COPD (chronic obstructive pulmonary disease) Qualifiers: COPD type: unspecified COPD Qualified Code(s): J44.9 - Chronic obstructive pulmonary disease, unspecified Is this a current diagnosis for this admission?: Yes Plan: As Symbicort is not on formulary institute DuoNeb nebulizer treatments (8) BPH (benign prostatic hyperplasia) Qualifiers: Lower urinary tract symptom detail: unspecified Is this a current diagnosis for this admission?: Yes Plan: Continue finasteride (9) Cardiac pacemaker in situ Is this a current diagnosis for this admission?: Yes Plan: Monitor on telemetry - Time Time Spent with patient: 15-24 minutes Medications reviewed and adjusted accordingly: Yes Anticipated Discharge Disposition: Home with Home Health Anticipated Discharge Timeframe: within 72 hours
--- NOTE | 2019-10-11 17:25 | CDI QUERY ---
CDI Query CDI Review: We are seeking further clarification of documentation to reflect the severity of illness of your patient. Documentation in the record includes the following: LESLIE HERNANDEZ is a 84 year old male with history of pacemaker, CABG x5, multiple stent placements, diabetes mellitus, hypertension, ex-smoker came to the emergency room with complaints of bilateral lower leg swelling associated with scrotal swelling for the last 2 weeks. As per the patient he is compliant with his medications at home. Also complaining of shortness of breath using 2 pillows to sleep in a propped up position. Labs: BUN / Cr 33 / 1.57 on admission 31 / 1.49 27 / 1.36 19 / 1.09 10/09/[id number]-tbdn-old male with history of pacemaker and right side of the chest admitted with acute on chronic diastolic heart failure. Consultation with cardiology was done. Patient is on Lasix 40 mg IV every 8 hours, spironolactone. Negative fluid balance of 2.3 L in the last 24 hours. Plan is to switch Lasix to 40 mg daily twice a day by mouth. Plan is to continue strict input output chart and daily weights. Patient is on fluid restriction. Based on your medical judgment, can you please provide in the progress notes a diagnosis, if any, associated with the above findings. Acute renal failure Acute kidney injury (OLE) Chronic kidney disease (CKD) please stage Unable to determine Other Thank you for your consideration. ESTIVEN KoehlerN RN Clinical [place] Physician Advisor [email or web address]
--- NOTE | 2019-10-11 22:18 | PDOC PROGRESS REPORT ---
Subjective Progress Note for:: 10/10/19 Subjective:: Patient was seen on morning rounds. His edema is less. His dyspnea has improved however BNP remained significantly high. No new symptoms reported by the efraín ent. Pt is OOB to chair. Reason For Visit: CHF Physical Exam Vital Signs: Temp Pulse Resp BP Pulse Ox 97.5 F 80 16 135/60 H 100 10/10/19 15:43 10/10/19 19:00 10/10/19 15:43 10/10/19 15:43 10/10/19 15:43 Intake & Output 10/09/19 10/10/19 10/11/19 06:59 06:59 06:59 Intake Total 1150 780 780 Output Total 3475 1500 400 Balance -2325 -720 380 Weight 58.5 kg 59.5 kg General appearance: PRESENT: no acute distress, well-developed, well-nourished Head exam: PRESENT: atraumatic, normocephalic Eye exam: PRESENT: conjunctiva pink, EOMI, PERRLA. ABSENT: scleral icterus Ear exam: PRESENT: normal external ear exam Mouth exam: PRESENT: moist, tongue midline Neck exam: PRESENT: JVD - Prominent CV waves.. ABSENT: carotid bruit, lymphadenopathy, thyromegaly Respiratory exam: PRESENT: clear to auscultation kris, decreased breath sounds - R base. ABSENT: rales, rhonchi, wheezes Cardiovascular exam: PRESENT: RRR. ABSENT: diastolic murmur, rubs, systolic murmur Pulses: PRESENT: normal dorsalis pedis pul Vascular exam: PRESENT: normal capillary refill GI/Abdominal exam: PRESENT: normal bowel sounds, soft. ABSENT: distended, guarding, mass, organolmegaly, rebound, tenderness Rectal exam: PRESENT: deferred Extremities exam: PRESENT: full ROM. ABSENT: calf tenderness, clubbing, pedal edema Neurological exam: PRESENT: alert, awake, oriented to person, oriented to place, oriented to time, oriented to situation, CN II-XII grossly intact. ABSENT: motor sensory deficit Psychiatric exam: PRESENT: appropriate affect, normal mood. ABSENT: homicidal ideation, suicidal ideation Skin exam: PRESENT: dry, intact, warm. ABSENT: cyanosis, rash Results Laboratory Results: 10/10/19 08:39 10/10/19 08:29 10/10/19 10/10/19 08:29 08:39 WBC 9.2 RBC 3.75 L Hgb 12.0 L Hct 35.3 L MCV 94 MCH 32.2 MCHC 34.1 RDW 14.5 H Plt Count 261 Seg Neutrophils % 82.5 H Sodium 139.1 Potassium 4.4 Chloride 103 Carbon Dioxide 26 Anion Gap 10 BUN 19 Creatinine 1.09 Est GFR ( Amer) > 60 Glucose 186 H Calcium 9.2 Magnesium 2.0 Total Bilirubin 0.9 AST 30 Alkaline Phosphatase 84 Total Protein 6.6 Albumin 4.1 10/07/19 10/07/19 10/07/19 11:18 11:18 16:39 Creatine Kinase 60 Troponin I 0.023 0.024 NT-Pro-B Natriuret Pep 5460 H 10/07/19 10/08/19 10/09/19 22:55 06:06 07:24 Creatine Kinase Troponin I 0.029 0.035 NT-Pro-B Natriuret Pep 7360 H 7770 H 10/10/19 08:29 Creatine Kinase Troponin I NT-Pro-B Natriuret Pep 8200 H Impressions: Chest X-Ray 10/07/19 11:05 IMPRESSION: Chronic pleural thickening in the lung bases. Cardiomegaly without pulmonary edema. Venous Doppler Study 10/07/19 15:39 IMPRESSION: 1. No sonographic evidence for acute lower extremity deep venous thrombosis in either leg. 2. Several chronic appearing marginal nonocclusive thrombi in superficial veins. Assessment & Plan - Diagnosis (1) Acute on chronic diastolic heart failure Is this a current diagnosis for this admission?: Yes (2) COPD (chronic obstructive pulmonary disease) Qualifiers: COPD type: unspecified COPD Qualified Code(s): J44.9 - Chronic obstructive pulmonary disease, unspecified Is this a current diagnosis for this admission?: Yes (3) Cardiac pacemaker in situ Is this a current diagnosis for this admission?: Yes (4) Diabetes Qualifiers: Diabetes mellitus type: type 2 Diabetes mellitus emt intermediate insulin use: unspecified emt intermediate insulin use status Diabetes mellitus complication status: without complication Qualified Code(s): E11.9 - Type 2 diabetes mellitus without complications Is this a current diagnosis for this admission?: No (5) HTN (hypertension) Qualifiers: Hypertension type: essential hypertension Qualified Code(s): I10 - Essential (primary) hypertension Is this a current diagnosis for this admission?: Yes (6) Peripheral edema Is this a current diagnosis for this admission?: Yes (7) CAD (coronary artery disease) Qualifiers: Coronary Disease-Associated Artery/Lesion type: [place] artery Associated angina: with unspecified angina Is this a current diagnosis for this admission?: No (8) Pleural effusion Is this a current diagnosis for this admission?: Yes (9) Pulmonary hypertension Is this a current diagnosis for this admission?: Yes - Notes Notes: Patient is gradually getting better. Will continue with current regimen. Patient started on Eliquis. Patient encouraged to walk. Medications and regimen reviewed. No other changes made. Patient seems to be on a good regimen.
--- NOTE | 2019-10-11 22:23 | PDOC PROGRESS REPORT ---
Subjective Progress Note for:: 10/11/19 Subjective:: Patient was seen on evening rounds. His edema is less. His dyspnea has improved however BNP remained significantly high. No new symptoms reported by the efraín ent. Pt is OOB to chair. Patient walked in the hallways. Reason For Visit: CHF Physical Exam Vital Signs: Temp Pulse Resp BP Pulse Ox 97.5 F 61 16 117/62 100 10/11/19 17:23 10/11/19 19:00 10/11/19 17:23 10/11/19 17:23 10/11/19 17:23 Intake & Output 10/10/19 10/11/19 10/12/19 06:59 06:59 06:59 Intake Total 780 1105 918 Output Total 1500 2750 1350 Balance -720 -1645 -432 Weight 59.5 kg 60.2 kg General appearance: PRESENT: no acute distress, well-developed, well-nourished Head exam: PRESENT: atraumatic, normocephalic Eye exam: PRESENT: conjunctiva pink, EOMI, PERRLA. ABSENT: scleral icterus Ear exam: PRESENT: normal external ear exam Mouth exam: PRESENT: moist, tongue midline Neck exam: PRESENT: JVD - CV waves. ABSENT: carotid bruit, lymphadenopathy, thyromegaly Respiratory exam: PRESENT: clear to auscultation kris, decreased breath sounds - R base. ABSENT: rales, rhonchi, wheezes Cardiovascular exam: PRESENT: RRR, +S1, +S2, systolic murmur - 2/6 ESM. ABSENT: diastolic murmur, rubs Pulses: PRESENT: normal dorsalis pedis pul Vascular exam: PRESENT: normal capillary refill GI/Abdominal exam: PRESENT: normal bowel sounds, soft. ABSENT: distended, guarding, mass, organolmegaly, rebound, tenderness Rectal exam: PRESENT: deferred Extremities exam: PRESENT: full ROM, +1 edema. ABSENT: calf tenderness, clubbing, pedal edema Neurological exam: PRESENT: alert, awake, oriented to person, oriented to place, oriented to time, oriented to situation, CN II-XII grossly intact. ABSENT: motor sensory deficit Psychiatric exam: PRESENT: appropriate affect, normal mood. ABSENT: homicidal ideation, suicidal ideation Skin exam: PRESENT: dry, intact, warm. ABSENT: cyanosis, rash Results Laboratory Results: 10/10/19 08:39 10/10/19 08:29 10/07/19 10/07/19 10/07/19 11:18 11:18 16:39 Creatine Kinase 60 Troponin I 0.023 0.024 NT-Pro-B Natriuret Pep 5460 H 10/07/19 10/08/19 10/09/19 22:55 06:06 07:24 Creatine Kinase Troponin I 0.029 0.035 NT-Pro-B Natriuret Pep 7360 H 7770 H 10/10/19 08:29 Creatine Kinase Troponin I NT-Pro-B Natriuret Pep 8200 H Impressions: Chest X-Ray 10/07/19 11:05 IMPRESSION: Chronic pleural thickening in the lung bases. Cardiomegaly without pulmonary edema. Venous Doppler Study 10/07/19 15:39 IMPRESSION: 1. No sonographic evidence for acute lower extremity deep venous thrombosis in either leg. 2. Several chronic appearing marginal nonocclusive thrombi in superficial veins. Assessment & Plan - Diagnosis (1) Acute on chronic diastolic heart failure Is this a current diagnosis for this admission?: Yes (2) COPD (chronic obstructive pulmonary disease) Qualifiers: COPD type: unspecified COPD Qualified Code(s): J44.9 - Chronic obstructive pulmonary disease, unspecified Is this a current diagnosis for this admission?: Yes (3) Cardiac pacemaker in situ Is this a current diagnosis for this admission?: Yes (4) Diabetes Qualifiers: Diabetes mellitus type: type 2 Diabetes mellitus analytical manager insulin use: unspecified analytical manager insulin use status Diabetes mellitus complication status: without complication Qualified Code(s): E11.9 - Type 2 diabetes mellitus without complications Is this a current diagnosis for this admission?: No (5) HTN (hypertension) Qualifiers: Hypertension type: essential hypertension Qualified Code(s): I10 - Essential (primary) hypertension Is this a current diagnosis for this admission?: Yes (6) Peripheral edema Is this a current diagnosis for this admission?: Yes (7) CAD (coronary artery disease) Qualifiers: Coronary Disease-Associated Artery/Lesion type: [place] artery Associated angina: with unspecified angina Is this a current diagnosis for this admission?: No (8) Pleural effusion Is this a current diagnosis for this admission?: Yes (9) Pulmonary hypertension Is this a current diagnosis for this admission?: Yes
[2019-10-12] MEDS: PANTOPRAZOLE SODIUM 40 MG TABLET.DR PO SCH (05:31)
[2019-10-12] MEDS ORDERED: LEVOTHYROXINE SODIUM 0.05 MG TABLET PO SCH (06:00)
[2019-10-12 06:31] LABS: ANION GAP 8 (5-19); BLOOD UREA NITROGEN 28 mg/dL (7-20); CALCIUM 9.8 mg/dL (8.4-10.2); CARBON DIOXIDE 28 mmol/L (22-30); CHLORIDE 100 mmol/L (98-107); GLUCOSE 145 mg/dL (75-110); POTASSIUM 4.5 mmol/L (3.6-5.0)
[2019-10-12] MEDS ORDERED: ISOSORBIDE MONONITRATE 30 MG TAB.ER.24H PO SCH (08:00)
[2019-10-12] MEDS: IPRATROPIUM/ALBUTEROL 0.5-2.5 MG/3 ML AMPUL NEB SCH ×2 (08:24→14:10)
[2019-10-12] MEDS ORDERED: METOPROLOL TARTRATE 50 MG TABLET PO SCH (10:00)
[2019-10-12] MEDS ORDERED: METFORMIN HCL 500 MG TABLET PO SCH (10:00)
[2019-10-12] MEDS ORDERED: ASPIRIN 81 MG TABLET, ENT COATED PO SCH (10:00)
[2019-10-12] MEDS ORDERED: GLIPIZIDE 5 MG TABLET PO SCH (10:00)
[2019-10-12] MEDS ORDERED: FINASTERIDE 5 MG TABLET PO SCH (10:00)
[2019-10-12] MEDS ORDERED: AMLODIPINE BESYLATE 5 MG TABLET PO SCH (10:00)
[2019-10-12] MEDS: INSULIN REG, HUMAN 100 UNIT/ML 3 ML VIAL (PYX) SUBCUT SCH ×2 (10:30→11:51)
[2019-10-12] MEDS: SPIRONOLACTONE 25 MG TABLET PO SCH (11:07)
[2019-10-12] MEDS: APIXABAN 2.5 MG TABLET PO SCH (11:08)
[2019-10-12] MEDS: FUROSEMIDE 40 MG TABLET PO SCH (11:09)
[2019-10-12] MEDS: LOSARTAN POTASSIUM 25 MG TABLET PO SCH (11:09)
[2019-10-12 15:16] VITALS: BP 102/39
--- NOTE | 2019-10-12 16:23 | PDOC DISCHARGE SUMMARY ---
Impression - Admit/DC Date/PCP Admission Date/Primary Care Provider: 10/07/19 14:48 CHE MORALES PA-C Discharge Date: 10/12/19 - Discharge Diagnosis (1) Acute on chronic diastolic heart failure Is this a current diagnosis for this admission?: Yes (2) Acute kidney injury Is this a current diagnosis for this admission?: Yes (3) HTN (hypertension) Is this a current diagnosis for this admission?: Yes (4) CAD (coronary artery disease) Is this a current diagnosis for this admission?: Yes (5) Hyperglycemia due to diabetes mellitus Is this a current diagnosis for this admission?: Yes (6) Hypothyroidism Is this a current diagnosis for this admission?: Yes (7) COPD (chronic obstructive pulmonary disease) Is this a current diagnosis for this admission?: Yes (8) BPH (benign prostatic hyperplasia) Is this a current diagnosis for this admission?: Yes (9) Cardiac pacemaker in situ Is this a current diagnosis for this admission?: Yes - Additional Information Resuscitation Status: Do Not Resuscitate Discharge Diet: Cardiac, Diabetic Discharge Activity: Activity As Tolerated, Balance Activity w/Rest, Weigh Daily Referrals: CHE MORALES PA-C [Primary Care Provider] - 10/24/19 3:30 pm (left message to call us) ULI FRIED MD [ACTIVE STAFF] - 10/18/19 1:30 pm Prescriptions: Spironolactone [Aldactone 25 mg Tablet] 50 mg PO DAILY #30 tablet Apixaban [Eliquis 2.5 mg Tablet] 2.5 mg PO BID #30 tablet Pantoprazole Sodium [Protonix [address] Tablet] 40 mg PO BID@0600,1700 #30 tablet. Levothyroxine Sodium [Synthroid 0.05 mg Tablet] 0.05 mg PO Q6AM #15 tablet Home Medications: Albuterol Sulfate [Proair HFA Inhalation Aerosol 8.5 gm MDI] 2 puff IH Q4HP PRN 05/15/17 Finasteride [Proscar 5 mg Tablet] 5 mg PO DAILY 05/15/17 Glipizide [Glucotrol 5 mg Tablet] 2.5 mg PO BID 05/15/17 Metformin HCl [Glucophage 500 mg Tablet] 500 mg PO BID 05/15/17 Simvastatin 10 mg PO QHS 05/15/17 Amlodipine Besylate [Norvasc 5 mg Tablet] 5 mg PO DAILY 09/19/17 Losartan Potassium 25 mg PO DAILY 09/19/17 Aspirin [Aspirin EC] 81 mg PO DAILY 09/20/17 Fluticasone/Salmeterol [Advair 250-50 Diskus 14 Dose/Diskus] 1 inh IH DAILY 09/20/17 Furosemide [Lasix 40 mg Tablet] 40 mg PO QAM 09/20/17 Isosorbide Mononitrate [Isosorbide Mononitrate ER] 30 mg PO QAM 09/20/17 Metoprolol Tartrate [Lopressor 50 mg Tablet] 50 mg PO Q12H 09/20/17 Multivit-Mins/Iron/Folic/Lycop [Centrum Men's Tablet] 1 each PO DAILY 09/20/17 Apixaban [Eliquis 2.5 mg Tablet] 2.5 mg PO BID #30 tablet 10/12/19 Levothyroxine Sodium [Synthroid 0.05 mg Tablet] 0.05 mg PO Q6AM #15 tablet 10/12/19 Losartan Potassium [Cozaar 25 mg Tablet] 25 mg PO DAILY tablet 10/12/19 Pantoprazole Sodium [Protonix [address] Tablet] 40 mg PO BID@0600,1700 #30 tablet.dr 10/12/19 Spironolactone [Aldactone 25 mg Tablet] 50 mg PO DAILY #30 tablet 10/12/19 History of Present Illiness History of Present Illness: LESLIE HERNANDEZ is a 84 year old male with history of pacemaker, CABG x5, multiple stent placements, diabetes mellitus, hypertension, ex-smoker came to the emergency room with complaints of bilateral lower leg swelling associated with scrotal swelling for the last 2 weeks. As per the patient he is compliant with his medications at home. Also complaining of shortness of breath using 2 pillows to sleep in a propped up position. Denies any chest pains. Denies any headaches dizzy spells. wants to be a DNR/DNI. Hospital Course Hospital Course: (1) Acute on chronic diastolic heart failure Is this a current diagnosis for this admission?: Yes Plan: Continue increased dose of furosemide and resume previous cardiac regimen. Monitor electrolytes and renal function on increased dose of furosemide. (2) Acute kidney injury Is this a current diagnosis for this admission?: Yes Plan: Likely due to the heart failure. Resolved. Continue to monitor renal function on increased dose of furosemide (3) HTN (hypertension) Qualifiers: Hypertension type: essential hypertension Qualified Code(s): I10 - Essential (primary) hypertension Is this a current diagnosis for this admission?: Yes Plan: Resume patient's home antihypertensive medications. Monitor blood pressure as his furosemide dose has doubled. (4) CAD (coronary artery disease) Qualifiers: Coronary Disease-Associated Artery/Lesion type: [place] artery Associated angina: with unspecified angina Is this a current diagnosis for this admission?: Yes Plan: Resume previous cardiac medications including aspirin, Imdur, statin therapy and antihypertensives. (5) Hyperglycemia due to diabetes mellitus Is this a current diagnosis for this admission?: Yes Plan: Resume oral diabetic medications. Monitor Accu-Cheks and cover with sliding scale accordingly. (6) Hypothyroidism Qualifiers: Hypothyroidism type: unspecified Qualified Code(s): E03.9 - Hypothyroidism, unspecified Is this a current diagnosis for this admission?: Yes Plan: TSH is still elevated. Increase levothyroxine to 50 mcg daily. (7) COPD (chronic obstructive pulmonary disease) Qualifiers: COPD type: unspecified COPD Qualified Code(s): J44.9 - Chronic obstructive pulmonary disease, unspecified Is this a current diagnosis for this admission?: Yes Plan: As Symbicort is not on formulary institute DuoNeb nebulizer treatments (8) BPH (benign prostatic hyperplasia) Qualifiers: Lower urinary tract symptom detail: unspecified Is this a current diagnosis for this admission?: Yes Plan: Continue finasteride (9) Cardiac pacemaker in situ Is this a current diagnosis for this admission?: Yes Plan: Monitor on telemetry Physical Exam Vital Signs: Temp Pulse Resp BP Pulse Ox 97.4 F 72 16 102/39 L 96 10/12/19 11:39 10/12/19 14:10 10/12/19 14:10 10/12/19 11:39 10/12/19 14:10 Intake & Output 10/11/19 10/12/19 10/13/19 06:59 06:59 06:59 Intake Total 1105 1218 812 Output Total 2750 2300 500 Balance -1645 -1082 312 Weight 60.2 kg 58.2 kg General appearance: PRESENT: no acute distress, cooperative, well-developed Respiratory exam: PRESENT: clear to auscultation kris, symmetrical, unlabored. ABSENT: rales, rhonchi, tachypnea, wheezes Cardiovascular exam: PRESENT: RRR, +S1, +S2 GI/Abdominal exam: PRESENT: normal bowel sounds, soft. ABSENT: tenderness Extremities exam: ABSENT: pedal edema Musculoskeletal exam: PRESENT: ambulatory Neurological exam: PRESENT: alert, awake, oriented to person, oriented to place, oriented to time, oriented to situation, CN II-XII grossly intact Results Laboratory Results: WBC 9.2 10^3/uL (4.0-10.5) 10/10/19 08:39 RBC 3.75 10^6/uL (4.35-5.55) L 10/10/19 08:39 Hgb 12.0 g/dL (13.5-17.0) L 10/10/19 08:39 Hct 35.3 % (37.9-51.0) L 10/10/19 08:39 MCV 94 fl (80-97) 10/10/19 08:39 MCH 32.2 pg (27.0-33.4) 10/10/19 08:39 MCHC 34.1 g/dL (32.0-36.0) 10/10/19 08:39 RDW 14.5 % (11.5-14.0) H 10/10/19 08:39 Plt Count 261 10^3/uL (150-450) 10/10/19 08:39 Lymph % (Auto) 8.4 % (13-45) L 10/10/19 08:39 [place] % (Auto) 7.3 % (3-13) 10/10/19 08:39 Eos % (Auto) 1.0 % (0-6) 10/10/19 08:39 Baso % (Auto) 0.8 % (0-2) 10/10/19 08:39 Absolute Neuts (auto) 7.6 10^3/uL (1.7-8.2) 10/10/19 08:39 Absolute Lymphs (auto) 0.8 10^3/uL (0.5-4.7) 10/10/19 08:39 Absolute Monos (auto) 0.7 10^3/uL (0.1-1.4) 10/10/19 08:39 Absolute Eos (auto) 0.1 10^3/uL (0.0-0.6) 10/10/19 08:39 Absolute Basos (auto) 0.1 10^3/uL (0.0-0.2) 10/10/19 08:39 Seg Neutrophils % 82.5 % (42-78) H 10/10/19 08:39 PT 14.9 SEC (11.4-15.4) 10/08/19 06:06 INR 1.14 10/08/19 06:06 D-Dimer 2.07 ug/mL (0.00-0.50) H 10/07/19 11:18 Sodium 135.7 mmol/L (137-145) L 10/12/19 05:30 Potassium 4.5 mmol/L (3.6-5.0) 10/12/19 05:30 Chloride 100 mmol/L (98-107) 10/12/19 05:30 Carbon Dioxide 28 mmol/L (22-30) 10/12/19 05:30 Anion Gap 8 (5-19) 10/12/19 05:30 BUN 28 mg/dL (7-20) H 10/12/19 05:30 Creatinine 1.42 mg/dL (0.52-1.25) H 10/12/19 05:30 Est GFR ( Amer) 57 (>60) L 10/12/19 05:30 Est GFR (MDRD) Non-Af 47 (>60) L 10/12/19 05:30 Glucose 145 mg/dL (75-110) H 10/12/19 05:30 POC Glucose 318 mg/dL (70-110) H 10/12/19 11:38 Hemoglobin A1c % 5.4 % (4.7-6.0) 10/08/19 06:06 Calcium 9.8 mg/dL (8.4-10.2) 10/12/19 05:30 Magnesium 2.0 mg/dL (1.6-2.3) 10/12/19 05:30 Total Bilirubin 0.9 mg/dL (0.2-1.3) 10/10/19 08:29 Direct Bilirubin 0.4 mg/dL (0.0-0.4) 10/10/19 08:29 Neonat Total Bilirubin Not Reportable 10/10/19 08:29 Neonat Direct Bilirubin Not Reportable 10/10/19 08:29 Neonat Indirect Bili Not Reportable 10/10/19 08:29 AST 30 U/L (17-59) 10/10/19 08:29 ALT 25 U/L (<50) 10/10/19 08:29 Alkaline Phosphatase 84 U/L (38-126) 10/10/19 08:29 Creatine Kinase 60 U/L (55-170) 10/07/19 11:18 Troponin I 0.035 ng/mL 10/08/19 06:06 C-Reactive Protein 17.7 mg/L (<10.0) H 10/07/19 11:18 NT-Pro-B Natriuret Pep 8200 pg/mL (<450) H 10/10/19 08:29 Total Protein 6.6 g/dL (6.3-8.2) 10/10/19 08: Albumin 4.1 g/dL (3.5-5.0) 10/10/19 08:29 Triglycerides 89 mg/dL (<150) 10/08/19 06:06 Cholesterol 102.14 mg/dL (0-200) 10/08/19 06:06 LDL Cholesterol Direct 44 mg/dL (<100) 10/08/19 06:06 VLDL Cholesterol 18.0 mg/dL (10-31) 10/08/19 06:06 HDL Cholesterol 39 mg/dL (>40) L 10/08/19 06:06 TSH 8.22 uIU/mL (0.47-4.68) H 10/08/19 06:06 Urine Color YELLOW 10/07/19 11:11 Urine Appearance CLEAR 10/07/19 11:11 Urine pH 6.0 (5.0-9.0) 10/07/19 11:11 Ur Specific [place] 1.010 10/07/19 11:11 Urine Protein NEGATIVE mg/dL (NEGATIVE) 10/07/19 11:11 Urine Glucose (UA) NEGATIVE mg/dL (NEGATIVE) 10/07/19 11:11 Urine Ketones NEGATIVE mg/dL (NEGATIVE) 10/07/19 11:11 Urine Blood NEGATIVE (NEGATIVE) 10/07/19 11:11 Urine Nitrite NEGATIVE (NEGATIVE) 10/07/19 11:11 Urine Bilirubin NEGATIVE (NEGATIVE) 10/07/19 11:11 Urine Urobilinogen NEGATIVE mg/dL (<2.0) 10/07/19 11:11 Ur Leukocyte Esterase NEGATIVE (NEGATIVE) 10/07/19 11:11 Urine WBC (Auto) 0 /HPF 10/07/19 11:11 Urine RBC (Auto) 1 /HPF 10/07/19 11:11 Urine Bacteria (Auto) TRACE /HPF 10/07/19 11:11 Urine Ascorbic Acid NEGATIVE (NEGATIVE) 10/07/19 11:11 10/07/19 10/07/19 10/07/19 11:18 16:39 22:55 Troponin I 0.023 0.024 0.029 NT-Pro-B Natriuret Pep 5460 H 10/08/19 10/09/19 10/10/19 06:06 07:24 08:29 Troponin I 0.035 NT-Pro-B Natriuret Pep 7360 H 7770 H 8200 H Impressions: Chest X-Ray 10/07/19 11:05 IMPRESSION: Chronic pleural thickening in the lung bases. Cardiomegaly without pulmonary edema. Venous Doppler Study 10/07/19 15:39 IMPRESSION: 1. No sonographic evidence for acute lower extremity deep venous thrombosis in either leg. 2. Several chronic appearing marginal nonocclusive thrombi in superficial veins. Plan Health Concerns: Multiple comorbidities with heart lungs and kidneys Plan of Treatment: As above Goals: Ongoing cardiology care to optimize treatment Time Spent: Greater than 30 Minutes Stroke Is this a Stroke Patient?: No Acute Heart Failure - Is this a Heart Failure Patient?: Yes Documentation of LVEF assessment?: Yes LVEF: LVEF Greater Than 40% Anticoagulant Therapy: Yes Discharged on Evidence-Based Beta Blockers: No, document contraindications Reason(s) not discharged on Evidence-Based Beta Blockers: Bradycardia Discharged on ARNI?: No-Document Contraindications Reason(s) not discharged on ARNI: Impaired/worsening renal functions Discharged on ARB?: Yes Discharged on ACEI?: N/A Discharged on ARB For LVEF <35%, discharged on Aldosterone Antagonist?: N/A (LVEF > or = 35%) Follow-up Appointment scheduled within 7 days?: Yes
[2019-10-12] MEDS ORDERED: SIMVASTATIN 10 MG TABLET PO SCH (22:00)
--- NOTE | 2019-10-13 09:19 | PDOC PROGRESS REPORT ---
Subjective Progress Note for:: 10/12/19 Subjective:: Patient was seen on evening rounds. His edema is less. His dyspnea has improved however BNP remained significantly high. No new symptoms reported by the efraín ent. Pt is OOB to chair. Patient walked in the hallways. 10/12/2019 patient was seen in the morning. He was noted to be doing well. He is expecting to be discharged. Discussed about follow-up arrangement. Patient's inpatient medications were reviewed. Patient advised to continue on those. Patient advised to follow-up with a week of discharge. Reason For Visit: CHF Physical Exam Vital Signs: Temp Pulse Resp BP Pulse Ox 97.4 F 72 16 102/39 L 96 10/12/19 11:39 10/12/19 14:10 10/12/19 14:10 10/12/19 11:39 10/12/19 14:10 Intake & Output 10/11/19 10/12/19 10/13/19 06:59 06:59 06:59 Intake Total 1105 1218 812 Output Total 2750 2300 500 Balance -1645 -1082 312 Weight 60.2 kg 58.2 kg Exam: GENERAL: well-nourished and in no acute distress. Alert and oriented x3 HEAD: Atraumatic, normocephalic. EYES: MAN, sclera anicteric, conjunctiva are normal. ENT: Moist mucous membranes. No oral ulcerations or bleeding gums noted. No obvious ear, nose or throat abnormalities noted. NECK: supple without lymphadenopathy. Trachea is central. No cervical or axillary lymphadenopathy noted. Carotids are 2+, JVD mildly distended with prominent CV waves LUNGS: Breath sounds clear bilaterally with slightly diminished breath sounds and dullness right base. No wheezes rales or rhonchi noted. No significant dullness noted on percussion. CHEST: Palpation of the chest wall shows no significant chest wall tenderness. 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 ABDOMEN: Soft, no significant tenderness appreciated, normoactive bowel sounds. No guarding, no rebound. No rigidity noted . No masses appreciated. EXTREMITIES: Pedal pulses are 1-2+, no calf tenderness noted. No clubbing or cyanosis. Trace to 1+ pedal edema noted. Support stockings noted NEUROLOGICAL: Focused neurological exam showed no significant neurologic deficit. Normal speech, no focal weakness appreciated. PSYCH: Normal mood, normal affect. Judgment and insight within normal limits. SKIN: No significant ecchymosis, skin is noted to be warm. MUSCULOSKELETAL EXAM: No significant acute joint swelling noted. Results Laboratory Results: 10/10/19 08:39 10/12/19 05:30 10/12/19 05:30 Sodium 135.7 L Potassium 4.5 Chloride 100 Carbon Dioxide 28 Anion Gap 8 BUN 28 H Creatinine 1.42 H Est GFR ( Amer) 57 L Glucose 145 H Calcium 9.8 Magnesium 2.0 10/07/19 10/07/19 10/07/19 11:18 11:18 16:39 Creatine Kinase 60 Troponin I 0.023 0.024 NT-Pro-B Natriuret Pep 5460 H 10/07/19 10/08/19 10/09/19 22:55 06:06 07:24 Creatine Kinase Troponin I 0.029 0.035 NT-Pro-B Natriuret Pep 7360 H 7770 H 10/10/19 08:29 Creatine Kinase Troponin I NT-Pro-B Natriuret Pep 8200 H EKG Comments: Ventricular paced rhythm. Underlying atrial rhythm most likely atrial fibrillation Impressions: Chest X-Ray 10/07/19 11:05 IMPRESSION: Chronic pleural thickening in the lung bases. Cardiomegaly without pulmonary edema. Venous Doppler Study 10/07/19 15:39 IMPRESSION: 1. No sonographic evidence for acute lower extremity deep venous thrombosis in either leg. 2. Several chronic appearing marginal nonocclusive thrombi in superficial veins. 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: unspecified residential insulin use status Diabetes mellitus complication status: without complication Qualified Code(s): E11.9 - Type 2 diabetes mellitus without complications Is this a current diagnosis for this admission?: No (5) HTN (hypertension) Qualifiers: Hypertension type: essential hypertension Qualified Code(s): I10 - Essential (primary) hypertension Is this a current diagnosis for this admission?: Yes (6) Peripheral edema Is this a current diagnosis for this admission?: Yes (7) CAD (coronary artery disease) Qualifiers: Coronary Disease-Associated Artery/Lesion type: [place] artery Associated angina: with unspecified angina Is this a current diagnosis for this admission?: Yes (8) Pleural effusion Is this a current diagnosis for this admission?: Yes (9) Pulmonary hypertension Is this a current diagnosis for this admission?: Yes - Notes Notes: Patient noted to have predominantly right-sided heart failure possibly related to underlying COPD along with sleep apnea syndrome etc. Patient also has diastolic dysfunction. Patient also has moderate tricuspid regurgitation. At this point recommend continuing diuretic therapy along with furosemide and spironolactone. Watch for electrolyte imbalance. Patient has other medical issues which are being well managed by the hospitalist. Will follow patient in the office. If there are any questions please feel free to give me a call. - Time Time with patient: 15-25 minutes Medications reviewed and adjusted accordingly: Yes
--- NOTE | 2019-10-13 09:39 | PDOC PROGRESS REPORT ---
Subjective Progress Note for:: 10/08/19 Subjective:: Patient was seen on morning rounds. His edema is less. His dyspnea has improved however BNP remained significantly high. Reason For Visit: CHF Physical Exam Vital Signs: Temp Pulse Resp BP Pulse Ox 98.5 F 63 20 137/51 H 98 10/09/19 20:00 10/09/19 20:00 10/09/19 20:00 10/09/19 20:00 10/09/19 20:00 Intake & Output 10/08/19 10/09/19 10/10/19 06:59 06:59 06:59 Intake Total 150 1150 720 Output Total 2179 3475 650 Balance -2028 70 Weight 60.1 kg 58.5 kg Exam: GEN: NAD, patient alert oriented x3. Appearance and grooming WNL HEENT : Eyes: MAN, Ears: No significant abnormalities, Nose: No significant abnormalities. normocephalic atraumatic. Flat midface (-), Receding chin (-) ORAL : Mallampati class IV, narrow arched palate (-) Tonsils: Not enlarged. NECK: no thyromegaly, no masses, trachea is central, JVD is elevated, prominent CV waves noted, carotids 2+ with bruit (-) RESP: lungs clear, no rales, wheezes or rhonchi, nonlabored, accessory muscles of respiration use (-). CV: NL S1 and S2. 2/6 LSB significant murmurs noted, no gallop, no extra sounds, no clicks, no rub noted. GI: abd NT to palpation, no masses, bowel sounds present, no guarding or rigidi ty noted. EXT: no clubbing, (-) cyanosis, edema (1 to 2+), perpheral pulses diminished (no) MUSC/SKEL: no acute joint swelling noted. Muscle strength is generally intact. NEURO: no significant focal neurological deficits are note, sensation grossly intact, AO x 3 PSYCH: NL mood and affect. judgment and insight noted to be intact. SKIN: (-) rash, (-)Signs of pruritus, (-) other significant abnormality Results Laboratory Results: 10/09/19 07:24 10/09/19 07:24 10/09/19 10/09/19 07:24 07:24 WBC 8.6 RBC 3.71 L Hgb 11.9 L Hct 35.1 L MCV 94 MCH 31.9 MCHC 33.8 RDW 13.9 Plt Count 248 Seg Neutrophils % 82.1 H Sodium 140.5 Potassium 3.9 Chloride 100 Carbon Dioxide 32 H Anion Gap 9 BUN 27 H Creatinine 1.36 H Est GFR ( Amer) > 60 Glucose 123 H Calcium 9.5 Magnesium 2.2 Total Bilirubin 0.7 AST 27 Alkaline Phosphatase 79 Total Protein 6.9 Albumin 3.9 10/07/19 10/07/19 10/07/19 11:18 11:18 16:39 Creatine Kinase 60 Troponin I 0.023 0.024 NT-Pro-B Natriuret Pep 5460 H 10/07/19 10/08/19 10/09/19 22:55 06:06 07:24 Creatine Kinase Troponin I 0.029 0.035 NT-Pro-B Natriuret Pep 7360 H 7770 H EKG Comments: Telemetry strips reviewed showed ventricle paced rhythm. P waves difficult to discern. Impressions: Chest X-Ray 10/07/19 11:05 IMPRESSION: Chronic pleural thickening in the lung bases. Cardiomegaly without pulmonary edema. Venous Doppler Study 10/07/19 15:39 IMPRESSION: 1. No sonographic evidence for acute lower extremity deep venous thrombosis in either leg. 2. Several chronic appearing marginal nonocclusive thrombi in superficial veins. 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 insulin use status Diabetes mellitus complication status: without complication Qualified Code(s): E11.9 - Type 2 diabetes mellitus without complications Is this a current diagnosis for this admission?: No (5) HTN (hypertension) Qualifiers: Hypertension type: essential hypertension Qualified Code(s): I10 - Essential (primary) hypertension Is this a current diagnosis for this admission?: Yes (6) Peripheral edema Is this a current diagnosis for this admission?: Yes (7) CAD (coronary artery disease) Qualifiers: Coronary Disease-Associated Artery/Lesion type: [place] artery Associated angina: with unspecified angina Is this a current diagnosis for this admission?: No (8) Pleural effusion Is this a current diagnosis for this admission?: Yes (9) Pulmonary hypertension Is this a current diagnosis for this admission?: Yes - Notes Notes: 2D echo results were reviewed with the patient. Patient is noted to have predominantly right-sided heart failure with significant prominent CV waves, RV enlargement and severe pulmonary hypertension. Elinor duplex was negative for DVD. At this point continue Diuretic therapy. Have added spironolactone. Telemetry strips shows ventricular paced rhythm. A wave difficult to discern. Possible underlying atrial fibrillation. Patient however denies previous diag nosis of atrial fibrillation. Will review office records. Continue with ongoing concurrent management. Hospitalist managing the case well.
== END 2019-10-12 16:55 | disposition home or self-care (01) | DRG 292 ==
LOC: ER 10:35 → EH 14:48 → 3S 19:18
PROVIDERS: ADMIT Internal Medicine; ATTEND Hospitalist
DX: I11.0 Hypertensive heart disease with heart failure (principal); N17.9 Acute kidney failure, unspecified; I50.33 Acute on chronic diastolic (congestive) heart failure; E11.65 Type 2 diabetes mellitus with hyperglycemia; J44.9 Chronic obstructive pulmonary disease, unspecified; N40.0 Benign prostatic hyperplasia without lower urinary tract symptoms; E03.9 Hypothyroidism, unspecified; Z66 Do not resuscitate; E78.5 Hyperlipidemia, unspecified; R60.9 Edema, unspecified; I25.10 Atherosclerotic heart disease of native coronary artery without angina pectoris; I27.20 Pulmonary hypertension, unspecified; E78.00 Pure hypercholesterolemia, unspecified; I25.2 Old myocardial infarction; Z79.82 Long term (current) use of aspirin; Z95.0 Presence of cardiac pacemaker; Z79.890 Hormone replacement therapy; Z79.899 Other long term (current) drug therapy; Z79.84 Long term (current) use of oral hypoglycemic drugs; Z88.2 Allergy status to sulfonamides; Z95.1 Presence of aortocoronary bypass graft; Z95.5 Presence of coronary angioplasty implant and graft; Z87.891 Personal history of nicotine dependence; Z79.01 Long term (current) use of anticoagulants
CPT/HCPCS: 36415; 71045; 80048; 80053; 80061; 81001; 82550; 82962; 83036; 83735; 83880; 84443; 84484; 85025; 85379; 85610; 86140; 93005; 93010; 93306; 93970; 94640; 96374; 99285; J1644; J1815; J1940; J3490